=== PATIENT | male | born 1950 | race Caucasian/White ===

== ENCOUNTER 2021-03-20 16:41 | Inpatient (IN) | payer MEDICARE, SELFPAY ==
[2019-01-29 13:03] VITALS: BMI 27.8
[2021-03-20] VITALS (7 sets, daily range): BP systolic 83–207; BP diastolic 44–161; PULSE 62–73; RESP 18–24; TEMP 36.5–37.1; O2SAT 92–96; BMI 28.3; BMI 27.0
--- NOTE | 2021-03-20 16:53 | EDS_ITS ---
HPI History of Present Illness Chief Complaint: Abd Pain Informant: patient Narrative Narrative: 70-year-old male states that 1 hour prior to arrival he had sudden onset of lower abdominal pain. Reports that he has been constipated for the past 3 days but did move his bowels this morning. He denies any urinary symptoms. He notes prior history of diverticulitis as well as ureterolithiasis. He takes every 6 hour May for chronic back pain. He is on Eliquis. [facility] Medical History (Updated 03/20/21 @ 20:[address] Doyle Alexander, ) Atherosclerosis of coronary artery bypass graft without angina pectoris Atherosclerosis of coronary artery of [place] heart without angina pectoris Gaines's esophagus COPD (chronic obstructive pulmonary disease) Diverticulosis Essential hypertension GERD (gastroesophageal reflux disease) History of DVT (deep vein thrombosis) History of pulmonary embolism Hyperlipidemia Insomnia Palpitations Severe low back pain Vitamin D deficiency Home Medications zolpidem 10 mg PO QHS PRN 05/15/16 [History Last Taken Unknown] hydrocodone-acetaminophen 1 tab PO 4X/DAY PRN 09/17/17 [History Last Taken 09/17/17] apixaban 5 mg PO BID #0 09/18/17 [Rx Last Taken 09/17/17] albuterol sulfate 1.25 mg INHALATION Q4H PRN 01/28/19 [History Last Taken Unknown] alprazolam 0.5 mg tablet 1 mg PO BID tab 01/28/19 [History Last Taken Unknown] amiodarone 200 mg tablet 300 mg PO DAILY tab 01/28/19 [History Last Taken Unknown] evolocumab 140 mg/mL subcutaneous pen injector 140 mg SC Q2W 01/28/19 [History Last Taken Unknown] ipratropium 20 mcg-albuterol 100 mcg/actuation mist for inhalation 1 puff INHALATION DAILY 90 Days g 01/28/19 [History Last Taken Unknown] ropinirole 0.25 mg tablet 0.25 mg PO TID PRN tab 01/28/19 [History Last Taken Unknown] tizanidine 4 mg tablet 4 mg PO TID PRN 01/28/19 [History Last Taken Unknown] amlodipine 5 mg-valsartan 320 mg tablet 1 tab PO DAILY 01/29/19 [History Last T aken Unknown] atenolol 25 mg tablet 50 mg PO DAILY 01/29/19 [History Last Taken Unknown] omeprazole 20 mg capsule,delayed release 20 mg PO BID PRN cap 01/29/19 [History Last Taken Unknown] azelastine 1 spray INTRANASAL BID 03/20/21 [History Last Taken Unknown] furosemide 20 mg PO DAILY 03/20/21 [History Last Taken Unknown] potassium chloride 10 meq PO DAILY 03/20/21 [History Last Taken Unknown] Allergy/AdvReac Type Severity Reaction Status Date / Time cetirizine Allergy Severe chest Verified 01/29/19 13:07 pain, irregular heart beat acyclovir [From Zovirax] Allergy Intermediate GI upset Verified 01/28/19 16:29 Cephalosporins Allergy Intermediate abdominal Verified 01/28/19 16:29 pain Nzhlcdl-Mxp-Rsz Reductase Allergy Intermediate leg pain Verified 01/28/19 16:29 Inhibitor and general malaise ciprofloxacin [From Cipro] AdvReac Diarrhea Verified 09/17/17 16:31 doxycycline AdvReac Diarrhea Verified 09/17/17 16:31 Family History Mother Breast cancer Father Colon cancer Cancer prostate Surgical History History of cataract removal with insertion of prosthetic lens History of coronary artery bypass graft Presence of stent in coronary artery Social History Smoking Status: Current some day smoker tobacco type: cigarettes alcohol intake: current alcohol intake frequency: holidays/special occasions only substance use type: does not use caffeine: Yes Type: coffee Number of servings: 1 ROS ROS ED Constitutional Constitutional ED: Denies chills or weight loss Eyes Eyes: Denies change in vision or diplopia ENT ENT ED: Denies ear pain, rhinorrhea or sore throat Cardiovascular Cardiovascular: Denies chest pain, orthopnea, palpitations or racing heartbeat Respiratory/Chest Respiratory/Chest: Denies cough, dyspnea or orthopnea Gastrointestinal Gastrointestinal: Reports abdominal pain and constipation; Denies diarrhea, nausea or vomiting Genitourinary Genitourinary ED: Denies dysuria, hematuria or urinary frequency Musculoskeletal Musculoskeletal: Denies arthralgias or myalgias Integumentary Denies abscess or rash Neurologic Neurologic: Denies headache(s) or weakness Psychiatric Psychiatric: Denies anxiety, depression, suicidal ideation or suicidal thoughts Endocrine Endocrinology: Denies polydipsia, polyphagia or polyuria Allergic/Immunologic Allergic/Immunologic ED: Denies mouth swelling, tongue swelling or urticaria EXAM Physical Exam Const Vital Signs: 03/20/21 16:42 03/20/21 16:43 Temperature 97.7 F L Temperature Source Temporal Pulse Rate 73 72 Respiratory Rate 20 H 18 Blood Pressure 207/161 H 187/147 H Blood Pressure Mean 176 160 Pulse Ox 93 92 Oxygen Delivery Method Room Air Room Air Positive well nourished and well developed General Appearance ED: well developed HEENT Reports normocephalic, head/scalp atraumatic and moist mucous membranes Eyes PERRL and EOMs intact bilaterally Neck no lymphadenopathy, supple and no JVD Resp normal respiratory effort and clear to auscultation bilaterally Cardio regular rate, regular rhythm and no murmurs GI Palpation: soft and tender LLQ, RLQ and suprapubic Back/Spine no CVA tenderness and normal ROM Extremity normal to inspection General Extremety ED: Negative for edema General Extremity: Negative for edema Neuro oriented x3 and CN's II-XII intact bilaterally Sensorium / Orientation: alert Motor Exam: strength 5/5 throughout Psych mental status grossly normal Mood & Affect: Negative for depressed or tearful Skin no rashes or lesions noted and no wounds MDM MDM MDM Narrative Medical decision making narrative: Patient received a dose of morphine and Zofran as well as IV fluids. Patient white count returns at 12.4. Hemoglobin 17.4. CMP showed a creatinine 1.36 till bilirubin of 1.2. Urinalysis 2+ bacteria 0-5 squamous cells 0-5 white cells negative nitrates. We will send that for culture. His CT of the abdomen pelvis demonstrates acute sigmoid diverticulitis with perforation. He received a dose of Zosyn. I spoke with our on-call surgeon I will speak with her hospitalist for admission Lab Data Attestation: I reviewed the patient's lab results. Labs: Laboratory Results - last 24 hr 03/20/21 03/20/21 03/20/21 17:25 17:25 18:55 WBC 12.4 H RBC 6.22 H Hgb 17.4 H Hct 56.3 H MCV 90.5 MCH 28.0 MCHC 30.9 L RDW Std Deviation 48.7 H RDW Coeff of Thierno 14.9 H Plt Count 280 MPV 9.6 Immature Gran % (Auto) 1.000 H Neut % (Auto) 85.0 H Lymph % (Auto) 10.4 L Page % (Auto) 3.1 Eos % (Auto) 0.1 Baso % (Auto) 0.4 Absolute Neuts (auto) 10.6 H Absolute Lymphs (auto) 1.29 Nucleated RBC % 0 Sodium 133 L Potassium 4.3 Chloride 96 L Carbon Dioxide 28.0 Anion Gap 9 BUN 21 H Creatinine 1.36 H Estim Creat Clear Calc 46.58 Est GFR (MDRD) Af Amer 66 Est GFR (MDRD) Non-Af 55 L BUN/Creatinine Ratio 15.4 Glucose 164 H Calcium 9.1 Total Bilirubin 1.20 H AST 15 ALT 17 Alkaline Phosphatase 94 Total Protein 7.5 Albumin 3.3 Globulin 4.2 Albumin/Globulin Ratio 0.8 L Urine Color Flaca Urine Clarity Sl. Cloudy Urine pH 5.0 Ur Specific O'Brien 1.020 Urine Protein 30 H Urine Glucose (UA) Normal Urine Ketones 5 H Urine Occult Blood Negative Urine Nitrite Negative Urine Bilirubin 1 H Urine Urobilinogen 1 H Ur Leukocyte Esterase 25 H Urine RBC 0 SEEN Urine WBC 0-5 SEEN Ur Squamous Epith Cells 0-5 SEEN Urine Bacteria 2+ Urine Mucus 1+ Radiography Diagnostic Testing: Radiology Impression Abdomen/Pelvis CT 03/20/21 18:12 IMPRESSION: Findings compatible with acute perforated sigmoid diverticulitis with trace free intraperitoneal air. Cholelithiasis. Trace ascites. Nonobstructing tiny stone in the upper pole of the left kidney. I discussed the findings by phone with Dr. Doyle Alexander at 5:06 PM PDT on 03/20/2021 Electronically Signed: Isidoro Costello MD at 20:08 EDT Tel , Service support , Discharge Plan Triage Chief Complaint: Abd Pain ED Provider: Doyle Alexander Dx/Rx/DC Orders Clinical Impression: Perforation of sigmoid colon due to diverticulitis Prescriptions: No Action amlodipine-valsartan 5-320 mg tablet 1 tab PO DAILY RF: 0 atenolol 25 mg tablet 50 mg PO DAILY RF: 0 tizanidine 4 mg tablet 4 mg PO TID PRNRF: 0 ipratropium-albuterol 20-100 mcg/actuation mist 1 puff INHALATION DAILY 90 Days RF: 0 albuterol sulfate 2.5 mg /3 mL (0.083 %) solution for nebulization 1.25 mg INHALATION Q4H PRN (Reason: Shortness Of Breath) RF: 0 Repatha SureClick 140 mg/mL pen injector 140 mg SC Q2W RF: 0 omeprazole 20 mg capsule,delayed release(DR/EC) 20 mg PO BID PRNRF: 0 zolpidem 10 MG tablet 10 mg PO QHS PRN (Reason: Sleep) RF: 0 ropinirole 0.25 mg tablet 0.25 mg PO TID PRN (Reason: restless legs) RF: 0 amiodarone 200 mg tablet 300 mg PO DAILY RF: 0 hydrocodone-acetaminophen 1 EACH tablet 1 tab PO 4X/DAY PRN (Reason: Pain) RF: 0 apixaban 5 MG tablet 5 mg PO BID Qty: 0 RF: 0 alprazolam 0.5 mg tablet 1 mg PO BID RF: 0 potassium chloride 10 mEq Capsule, Extended Release 10 meq PO DAILY RF: 0 furosemide 20 mg Tablet 20 mg PO DAILY RF: 0 azelastine 205.5 mcg (0.15 %) [place],Non-Aerosol 1 spray INTRANASAL BID RF: 0 Primary Care Provider: Woo Pineda Referrals: Woo Pineda MD [Primary Care Provider] - Disposition Disposition: Acute Care Hospital [facility]
[2021-03-20] MEDS: Morphine 4 MG/ML Syringe IV (17:19)
[2021-03-20] MEDS: Ondansetron 4 MG/2 ML Vial IV (17:21)
[2021-03-20] MEDS: Ketorolac 15 MG/ML Vial IV (17:21)
[2021-03-20] MEDS: 0.9% Normal Saline 1,000 ML 125 ML IV (17:22)
[2021-03-20 17:33] LABS: Absolute Lymphocyte Count 1.29 X10^3/uL (0.83-4.51); Absolute Neutrophil Count 10.6 X10^3/uL (2.0-7.7); Basophil# 0.05 X10^3/uL; Basophil% 0.4 % (0-1); Eosinophil# 0.01 X10^3/uL; Eosinophils% 0.1 % (0-5); Hemoglobin 17.4 g/dL (13.0-16.5); Lymphocyte # 1.29 X10^3/ul (0.83-4.51); Lymphocyte % 10.4 % (19-41); Mean Corp Hgb Conc 30.9 g/dL (32-36); Mean Corpuscular Volume 90.5 fL (80-94); Mean Platelet Vol. 9.6 fl (6.2-12.0); Monocyte# 0.39 X10^3/uL; Monocyte% 3.1 % (0-10); NRBC Flagged by Analyzer 0 % (0-5); Neutrophil # 10.56 X10^3/uL (2.7-7.7); Platelet Count 280 K/mm3 (150-450); RBC Distribution Width CV 14.9 % (11.6-14.6); RBC Distribution Width SD 48.7 fl (35.1-43.9); Red Blood Count 6.22 M/mm3 (4.6-6.2); White Blood Count 12.4 K/mm3 (4.4-11.0)
[2021-03-20 17:37] LABS: Hematocrit 56.3 % (40-54)
[2021-03-20 17:55] LABS: ALB/GLOB Ratio 0.8 RATIO (0.9-2.4); AST(SGOT) 15 U/L (15-37); Alanine Aminotransfer ALT/SGPT 17 U/L (16-61); Albumin, Serum 3.3 g/dL (3.2-5.0); Alkaline Phosphatase 94 U/L (45-117); Anion Gap 9 (5-15); BUN 21 mg/dL (7-18); BUN/Creat Ratio 15.4 RATIO (10-20); Calcium,Total 9.1 mg/dL (8.5-10.1); Chloride 96 mmol/L (98-107); Creatinine, Serum 1.36 mg/dL (0.70-1.30); EST Glomerular Filtration Rate 55 mL/min (>60); Est Glom Filt Rate - Afr Amer 66 mL/min (>60); Estimated Creatinine Clearance 46.58 ml/min; Globulin 4.2 g/dL (2.2-4.2); Glucose 164 mg/dL (74-106); Potassium 4.3 mmol/L (3.5-5.1); Protein, Total 7.5 g/dL (6.4-8.2); Sodium Level 133 mmol/L (136-145)
--- NOTE | 2021-03-20 18:12 | CT_ITS ---
We are attempting to reach an attending provider to discuss findings. An addendum with communication details will be sent when the communication is complete. STUDY: CT ABDOMEN AND PELVIS WITH CONTRAST REASON FOR EXAM: Male, 70 years old. llq pain RADIATION DOSAGE (If Supplied By Facility): CTDIvol = ( 15.01 ) mGy, DLP = ( 919.14 ) mGycm TECHNIQUE: Transaxial images were obtained from the dome of the diaphragm to the symphysis pubis without oral contrast. IV 100mL Isovue-300 was administered. Sagittal and coronal images were reconstructed. Individualized dose optimization techniques were used for this CT. COMPARISON: 08/21/2012 FINDINGS: Minimal bibasilar dependent atelectasis. Unremarkable liver, spleen, pancreas, adrenals, and right kidney. A 0.2 cm nonobstructing stone in the left kidney. Multiple layering stones in the gallbladder. Trace ascites. Normal appendix. Bowel loops nonobstructed. Distal colonic diverticulosis. Fat stranding around the sigmoid colon, compatible with acute diverticulitis. Intraperitoneal free air noted lateral to the sigmoid colon, best seen on images #95 and 96. Findings consistent with perforation. Trace ascites. Urinary bladder grossly unremarkable. Prostate mildly enlarged. Small fat-containing right inguinal hernia. Fusiform aneurysmal dilatation of the ascending thoracic aorta measuring 3.6 x 3.1 cm axial plane. Old compression fractures of L2 on L3. Multilevel thoracolumbar spondylosis. Mild to moderate osteoarthritis of the bilateral hip joints. Diffuse osteopenia. CT/Abdomen/Pelvis W IV Cont ONLY IMPRESSION: Findings compatible with acute perforated sigmoid diverticulitis with trace free intraperitoneal air. Cholelithiasis. Trace ascites. Nonobstructing tiny stone in the upper pole of the left kidney. I discussed the findings by phone with Dr. Doyle Alexander at 5:06 PM PDT on 03/20/2021 Electronically Signed: Isidoro Costello MD at 20:08 EDT Tel , Service support ,
[2021-03-20 18:59] LABS: Color, Urine Amber (Yellow); Glucose, Dipstick Normal (Normal); Ketone-Dipstick 5 mg/dl (Negative); Leukocyte Esterase-Dipstick 25 /ul (Negative); Nitrite-Dipstick Negative (Negative); Occult Blood-Urine Negative /ul (Negative); Protein-Dipstick 30 mg/dl (Negative); Red Blood Cells-Urine 0 SEEN /hpf (0-5); Urine Clarity Sl. Cloudy (Clear); Urine Urobilinogen 1 mg/dl (Normal)
[2021-03-20 19:01] LABS: Urine Bilirubin Dipstick 1 mg/dL (Negative)
[2021-03-20 19:05] LABS: Mucous, Urine 1+ /hpf (<or=2+); Squamous Epithelial Cells - UA 0-5 SEEN /hpf (0-5); White Blood Cells 0-5 SEEN /hpf (0-5)
[2021-03-20 19:06] LABS: Bacteria 2+ /hpf (None Seen)
--- NOTE | 2021-03-20 20:33 | PCM.HP.STD ---
[facility] - General General Date of Admission: 03/20/21 HPI Dejah ALVAREZ, is a 70 M with a significant history of 5 vessel CABG and stent; DVT and PE; chronic back pain; and diverticulitis who presents to the emergency department with a 2-day history of lower abdominal pain. One (1) hour before presentation his abdominal pain progressively worsened so she came to the emergency department. She reports excruciating abdominal pain. He describes his pain as sharp. The pain is nonradiating. He denies any ameliorating or aggravating factors to the pain. Although his bowels moved typically every day on the day before presentation his bowels did not move. However on the day of presentation his bowels moved. He denies any nausea or vomiting. He reports a decrease in frequency of urination About 1 week ago he was diagnosed with congestive heart failure and started on Lasix. [facility] Medical History Atherosclerosis of coronary artery bypass graft without angina pectoris Atherosclerosis of coronary artery of [place] heart without angina pectoris Gaines's esophagus COPD (chronic obstructive pulmonary disease) Diverticulosis Essential hypertension GERD (gastroesophageal reflux disease) History of DVT (deep vein thrombosis) History of pulmonary embolism Hyperlipidemia Insomnia Palpitations Severe low back pain Vitamin D deficiency Home Medications zolpidem 10 mg PO QHS 05/15/16 [History Last Taken 03/19/21 23:00] hydrocodone-acetaminophen 1 tab PO 4X/DAY PRN 09/17/17 [History Last Taken 03/20/21 14:00] apixaban 5 mg PO BID #0 09/18/17 [Rx Last Taken 03/20/21 08:00] albuterol sulfate 1.25 mg INHALATION Q4H PRN 01/28/19 [History Last Taken Unknown] alprazolam 0.5 mg tablet 1 mg PO BID tab 01/28/19 [History Last Taken 03/19/21 23:00] evolocumab 140 mg/mL subcutaneous pen injector 140 mg SC Q2W 01/28/19 [History Last Taken Unknown] ipratropium 20 mcg-albuterol 100 mcg/actuation mist for inhalation 1 puff INHALATION DAILY 90 Days g 01/28/19 [History Last Taken Unknown] tizanidine 4 mg tablet 4 mg PO TID PRN 01/28/19 [History Last Taken Unknown] atenolol 25 mg tablet 50 mg PO DAILY 01/29/19 [History Last Taken 03/20/21 08:00] furosemide 20 mg PO DAILY 03/20/21 [History Last Taken 03/20/21 08:00] potassium chloride 10 meq PO DAILY 03/20/21 [History Last Taken 03/20/21 08:00] Allergy/AdvReac Type Severity Reaction Status Date / Time cetirizine Allergy Severe chest Verified 01/29/19 13:07 pain, irregular heart beat acyclovir [From Zovirax] Allergy Intermediate GI upset Verified 01/28/19 16:29 Cephalosporins Allergy Intermediate abdominal Verified 01/28/19 16:29 pain [id number]-Fkc Reductase Allergy Intermediate increased Verified 03/20/21 22:01 Inhibitor weakness ciprofloxacin [From Cipro] AdvReac Diarrhea Verified 09/17/17 16:31 doxycycline AdvReac Diarrhea Verified 09/17/17 16:31 Family History Mother Breast cancer Father Colon cancer Cancer prostate Surgical History History of cataract removal with insertion of prosthetic lens History of coronary artery bypass graft Presence of stent in coronary artery Social History Smoking Status: Current some day smoker tobacco type: cigarettes alcohol intake: current alcohol intake frequency: holidays/special occasions only substance use type: does not use caffeine: Yes Type: coffee Number of servings: 1 ROS ROS Narrative 12 point review of system is negative except as stated in HPI. Vital Signs Vital Signs Vital Signs: 03/20/21 16:42 03/20/21 16:43 03/20/21 19:00 Temperature 97.7 F L 98.5 F Temperature Source Temporal Oral Pulse Rate 73 72 66 Respiratory Rate 20 H 18 24 H Blood Pressure 207/161 H 187/147 H 110/68 Blood Pressure Mean 176 160 82 Pulse Ox 93 92 96 Oxygen Delivery Method Room Air Room Air Room Air 03/20/21 20:17 Temperature 98.8 F Temperature Source Oral Pulse Rate 65 Respiratory Rate 22 H Blood Pressure 107/66 Blood Pressure Mean 79 Pulse Ox 95 Oxygen Delivery Method Room Air Weight Weight: 81.9 kg Body Mass Index (BMI) 28.3 Physical Exam Narrative Physical exam: General: Well-nourished, well-developed, no acute distress Head: Normocephalic, atraumatic, no tenderness Eyes: PERRLA, EOMI ENT, no trauma, moist mucous membranes, no rhinorrhea Neck: Nontender, full range of motion, no spinal tenderness, deformities, step-off CVS: Regular rate and rhythm Respiratory no acute distress, clear to auscultation bilaterally, chest wall nontender, no wheezing Abdomen: Soft, nondistended, normal bowel sounds, no masses. Tender right lower quadrant : Deferred Extremities: Nontender full range of motion, no trauma Skin: Normal color, no trauma, abrasions Neuro: Alert, oriented, cranial nerves II through XII grossly intact. Results Lab / Micro Data Result Diagrams: 03/20/21 17:25 03/20/21 17:25 Labs: Laboratory Results - last 24 hr 03/20/21 03/20/21 03/20/21 17:25 17:25 18:55 WBC 12.4 H RBC 6.22 H Hgb 17.4 H Hct 56.3 H MCV 90.5 MCH 28.0 MCHC 30.9 L RDW Std Deviation 48.7 H RDW Coeff of Thierno 14.9 H Plt Count 280 MPV 9.6 Immature Gran % (Auto) 1.000 H Neut % (Auto) 85.0 H Lymph % (Auto) 10.4 L Casey % (Auto) 3.1 Eos % (Auto) 0.1 Baso % (Auto) 0.4 Absolute Neuts (auto) 10.6 H Absolute Lymphs (auto) 1.29 Nucleated RBC % 0 Sodium 133 L Potassium 4.3 Chloride 96 L Carbon Dioxide 28.0 Anion Gap 9 BUN 21 H Creatinine 1.36 H Estim Creat Clear Calc 46.58 Est GFR (MDRD) Af Amer 66 Est GFR (MDRD) Non-Af 55 L BUN/Creatinine Ratio 15.4 Glucose 164 H Calcium 9.1 Total Bilirubin 1.20 H AST 15 ALT 17 Alkaline Phosphatase 94 Total Protein 7.5 Albumin 3.3 Globulin 4.2 Albumin/Globulin Ratio 0.8 L Urine Color Flaca Urine Clarity Sl. Cloudy Urine pH 5.0 Ur Specific [place] 1.020 Urine Protein 30 H Urine Glucose (UA) Normal Urine Ketones 5 H Urine Occult Blood Negative Urine Nitrite Negative Urine Bilirubin 1 H Urine Urobilinogen 1 H Ur Leukocyte Esterase 25 H Urine RBC 0 SEEN Urine WBC 0-5 SEEN Ur Squamous Epith Cells 0-5 SEEN Urine Bacteria 2+ Urine Mucus 1+ Radiology Impression Abdomen/Pelvis CT 03/20/21 18:12 IMPRESSION: Findings compatible with acute perforated sigmoid diverticulitis with trace free intraperitoneal air. Cholelithiasis. Trace ascites. Nonobstructing tiny stone in the upper pole of the left kidney. I discussed the findings by phone with Dr. Doyle Alexander at 5:06 PM PDT on 03/20/2021 Electronically Signed: Isidoro Costello MD at 20:08 EDT Tel , Service support , ADDENDUM: 03/20/21 2018 IMPRESSION: Findings compatible with acute perforated sigmoid diverticulitis with trace free intraperitoneal air. Cholelithiasis. Trace ascites. Nonobstructing tiny stone in the upper pole of the left kidney. I discussed the findings by phone with Dr. Doyle Alexander at 5:06 PM PDT on 03/20/2021 N.B. : The above Results were Read Back by Isidoro Costello MD to Dr. Doyle Alexander MD, and understanding confirmed on 03/20/2021 20:11:58 (ET). Electronically Signed: Isidoro Costello MD at 20:08 EDT Tel , Service support , Assessment & Plan Assessment/Plan (1) Perforation of sigmoid colon due to diverticulitis: (2) Essential hypertension: PLAN: Perforation of sigmoid colon due to diverticulitis Radiologist impression of abdomen and pelvis CT: Findings compatible with acute perforated sigmoid diverticulitis with trace free intraperitoneal air. Cholelithiasis; trace ascites; nonobstructing tiny stone in the upper pole of the left kidney. Actual abdomen and pelvis CT independently interpreted and agree with direct interpretation. Emergent department doctor discussed the case with general surgeon on-call who will follow. General surgery consult placed. Started on Zosyn at the emergency department and continued. Gentle IV hydration. Review of Emergency department labs showed bandemia with leukocytosis; trend CBC. As needed IV morphine sulfate for pain ordered. As needed Zofran IV for nausea or vomiting. UTI Bacteriuria Started on Zosyn; continued. Congestive heart failure Report that he was diagnosed with congestive heart failure about a week ago and started on Lasix. In the setting of n.p.o. hold Lasix and potassium. Gentle IV hydration. Cautious use of fluids. Trend BMP. Coreg held secondary to parameters placed. LARY/dehydration Creatinine of 1.36. Last creatinine on file was in 2018. Creatinine at time was normal. Review of ED labs showed a mild hyponatremia of 133. BUN mildly elevated at 21 Review of community records show that on 03/10/2021 his creatinine was 0.85. Hold Lasix. Avoid nephrotoxins. Gentle IV hydration. DVT prophylaxis: SCD ordered. Charges/Coding Visit Charges Inpatient E&M: 63200 Init Hosp L3
[2021-03-20] MEDS: Azelastine HCl NASAL.SRY 1 SPRAY NASAL (22:45)
[2021-03-20] MEDS: 0.9% Normal Saline 1,000 ML 50 ML IV (22:47)
[2021-03-20] MEDS: ALPRAZolam 0.5 MG Tablet 1 MG PO (22:47)
[2021-03-21] VITALS (16 sets, daily range): BP systolic 82–113; BP diastolic 55–75; PULSE 65–80; RESP 18–20; TEMP 36.6–36.9; O2SAT 92–100
[2021-03-21] MEDS: tiZANidine HCl 2 MG Tablet 4 MG PO ×2 (00:42→19:53)
[2021-03-21] MEDS: Pantoprazole Sodium 40 MG Tablet PO (03:56)
[2021-03-21] MEDS: 0.9% Normal Saline 1,000 ML 50 ML IV (05:46)
[2021-03-21 06:25] LABS: Absolute Lymphocyte Count 0.68 X10^3/uL (0.83-4.51); Absolute Neutrophil Count 8.7 X10^3/uL (2.0-7.7); Basophil# 0.04 X10^3/uL; Basophil% 0.4 % (0-1); Differential Indicated SCAN CRITERIA MET; Eosinophil# 0.11 X10^3/uL; Eosinophils% 1.1 % (0-5); Hematocrit 52.5 % (40-54); Hemoglobin 16.2 g/dL (13.0-16.5); Lymphocyte # 0.68 X10^3/ul (0.83-4.51); Lymphocyte % 6.6 % (19-41); Mean Corp Hgb Conc 30.9 g/dL (32-36); Mean Corpuscular Hgb 28.3 pg (27.0-32.0); Mean Corpuscular Volume 91.6 fL (80-94); Mean Platelet Vol. 9.8 fl (6.2-12.0); Monocyte# 0.72 X10^3/uL; NRBC Flagged by Analyzer 0 % (0-5); Neutrophil # 8.68 X10^3/uL (2.7-7.7); Neutrophil % 84.3 % (47-70); POSITIVE MORPHOLOGY YES; Platelet Count 194 K/mm3 (150-450); RBC Distribution Width CV 14.8 % (11.6-14.6); RBC Distribution Width SD 49.7 fl (35.1-43.9); Red Blood Count 5.73 M/mm3 (4.6-6.2); White Blood Count 10.3 K/mm3 (4.4-11.0)
--- NOTE | 2021-03-21 06:32 | EX.PCM.CON.S ---
Assessment & Plan Assessment/Plan (1) Perforation of sigmoid colon due to diverticulitis: (2) Hypotension: PLAN: Did review patient CT abdomen pelvis to have small amount of extraluminal air. Patient did have some hypotension overnight and currently did get a bolus of 250 cc however still remained hypotensive. Patient states he has not drank much for the last 4 days and has not ate. Patient's creatinine was elevated on admission 1.36 patient's fluids were cut down due to new diagnosis of CHF per patient. Will give an additional 500 cc bolus and increase fluids back to 125 cc an hour. We will plan to treat conservatively with IV antibiotics, pain control. Did discuss with patient that if he does have increasing pain or blood pressure does not improve we may need to talk about surgery which could include exploratory laparotomy, sigmoidectomy, possible colostomy. I do think the dehydration is likely is due to dehydration currently as his white blood cell count did come down to 10 from 12, and patient has low urine output with 75 cc since midnight and a negative bladder scan. Creatinine is pending but think it will likely be higher than on admit. Swathi Brurell M.D. Pager: [phone] [facility] [address] [place] [address], [facility], [address] [place] [address] Office: [phone] HPI Consult Data Date of Consult: 03/22/21 HPI Narrative HPI Narrative: ADRIANNE ALVAREZ, is a 70 M who presents to the ER due to lower abdominal pain. Patient states he has had this for about 4 days has not been eating for 4 days has been drinking but not urinating much. Patient states he has had previous episodes of diverticulitis maybe 2 or 3 last one was maybe about [address] abdomen pelvis did show acute diverticulitis with small extraluminal air. Patient initially had systolic blood pressures in the one tens in the ER however 2nd patient got to the floor he was hypotensive they did cut down his fluids due to new diagnosis of congestive heart failure per patient tube 50 from 125. Did try to limit morphine due to his blood pressure. Did not get any pain meds overnight still states pain is about the same. Patient did get a bolus of 250 cc which did not drastically improve his blood pressure still hypotensive. Patient's urine output since midnight 75 cc bladder scan did not show any urine in his bladder. Patient's white blood cell count on admit was 12 currently this morning is 10 patient is on IV Zosyn. [facility] Medical History (Updated 03/21/21 @ 06:[address] Swathi Burrell MD) Atherosclerosis of coronary artery bypass graft without angina pectoris Atherosclerosis of coronary artery of [place] heart without angina pectoris Gaines's esophagus COPD (chronic obstructive pulmonary disease) Diverticulosis Essential hypertension GERD (gastroesophageal reflux disease) History of DVT (deep vein thrombosis) History of pulmonary embolism Hyperlipidemia Insomnia Palpitations Severe low back pain Vitamin D deficiency Home Medications zolpidem 10 mg PO QHS 05/15/16 [History Last Taken 03/19/21 23:00] hydrocodone-acetaminophen 1 tab PO 4X/DAY PRN 09/17/17 [History Last Taken 03/20/21 14:00] apixaban 5 mg PO BID #0 09/18/17 [Rx Last Taken 03/20/21 08:00] albuterol sulfate 1.25 mg INHALATION Q4H PRN 01/28/19 [History Last Taken Unknown] alprazolam 0.5 mg tablet 1 mg PO BID tab 01/28/19 [History Last Taken 03/19/21 23:00] evolocumab 140 mg/mL subcutaneous pen injector 140 mg SC Q2W 01/28/19 [History Last Taken Unknown] ipratropium 20 mcg-albuterol 100 mcg/actuation mist for inhalation 1 puff INHALATION DAILY 90 Days g 01/28/19 [History Last Taken Unknown] tizanidine 4 mg tablet 4 mg PO TID PRN 01/28/19 [History Last Taken Unknown] atenolol 25 mg tablet 50 mg PO DAILY 01/29/19 [History Last Taken 03/20/21 08:00] furosemide 20 mg PO DAILY 03/20/21 [History Last Taken 03/20/21 08:00] potassium chloride 10 meq PO DAILY 03/20/21 [History Last Taken 03/20/21 08:00] Allergy/AdvReac Type Severity Reaction Status Date / Time cetirizine Allergy Severe chest Verified 01/29/19 13:07 pain, irregular heart beat acyclovir [From Zovirax] Allergy Intermediate GI upset Verified 01/28/19 16:29 Cephalosporins Allergy Intermediate abdominal Verified 01/28/19 16:29 pain [id number]-Llb Reductase Allergy Intermediate increased Verified 03/20/21 22:01 Inhibitor weakness ciprofloxacin [From Cipro] AdvReac Diarrhea Verified 09/17/17 16:31 doxycycline AdvReac Diarrhea Verified 09/17/17 16:31 Family History Mother Breast cancer Father Colon cancer Cancer prostate Surgical History History of cataract removal with insertion of prosthetic lens History of coronary artery bypass graft Presence of stent in coronary artery Social History Smoking Status: Current some day smoker tobacco type: cigarettes alcohol intake: current alcohol intake frequency: holidays/special occasions only substance use type: does not use caffeine: Yes Type: coffee Number of servings: 1 ROS Constitutional Constitutional: Reports poor appetite; Denies fever(s) ENT HEENT: Denies dizziness Cardiovascular Cardiovascular: Denies chest pain Respiratory/Chest Respiratory/Chest: Denies shortness of breath at rest Gastrointestinal Gastrointestinal: Reports abdominal pain and nausea; Denies constipation, diarrhea, heartburn or hematemesis Genitourinary Genitourinary: Denies burning urination Musculoskeletal Musculoskeletal: Denies joint pain Integumentary Integumentary: Denies rash Neurologic Neurologic: Denies focal weakness Psychiatric Psychiatric: Reports anxiety Endocrine Endocrinology: Denies palpitations Hematologic/Lymphatic Hematologic/Lymphatic: Denies easy bleeding or easy bruising Physical Exam Const alert, oriented x3 and no apparent distress HEENT normocephalic and head/scalp atraumatic Resp normal respiratory effort Cardio regular rate GI soft to palpation; Negative for non-distended Palpation: tender RLQ (And right mid abdomen, equivocal rebound); Negative for guarding Extremity no clubbing, cyanosis or edema Neuro CN's II-XII intact bilaterally Psych mental status grossly normal Lab / Micro Data Result Diagrams: 03/21/21 05:54 03/21/21 05:54 Labs: Laboratory Results - last 24 hr 03/20/21 03/20/21 03/20/21 17:25 17:25 18:55 WBC 12.4 H RBC 6.22 H Hgb 17.4 H Hct 56.3 H MCV 90.5 MCH 28.0 MCHC 30.9 L RDW Std Deviation 48.7 H RDW Coeff of [place] 14.9 H Plt Count 280 MPV 9.6 Immature Gran % (Auto) 1.000 H Neut % (Auto) 85.0 H Lymph % (Auto) 10.4 L [place] % (Auto) 3.1 Eos % (Auto) 0.1 Baso % (Auto) 0.4 Absolute Neuts (auto) 10.6 H Absolute Lymphs (auto) 1.29 Nucleated RBC % 0 Sodium 133 L Potassium 4.3 Chloride 96 L Carbon Dioxide 28.0 Anion Gap 9 BUN 21 H Creatinine 1.36 H Estim Creat Clear Calc 46.58 Est GFR (MDRD) Af Amer 66 Est GFR (MDRD) Non-Af 55 L BUN/Creatinine Ratio 15.4 Glucose 164 H Calcium 9.1 Total Bilirubin 1.20 H AST 15 ALT 17 Alkaline Phosphatase 94 Total Protein 7.5 Albumin 3.3 Globulin 4.2 Albumin/Globulin Ratio 0.8 L Urine Color [place] Urine Clarity Sl. Cloudy Urine pH 5.0 Ur Specific [place] 1.020 Urine Protein 30 H Urine Glucose (UA) Normal Urine Ketones 5 H Urine Occult Blood Negative Urine Nitrite Negative Urine Bilirubin 1 H Urine Urobilinogen 1 H Ur Leukocyte Esterase 25 H Urine RBC 0 SEEN Urine WBC 0-5 SEEN Ur Squamous Epith Cells 0-5 SEEN Urine Bacteria 2+ Urine Mucus 1+ 03/21/21 05:54 WBC 10.3 RBC 5.73 Hgb 16.2 Hct 52.5 MCV 91.6 MCH 28.3 MCHC 30.9 L RDW Std Deviation 49.7 H RDW Coeff of [place] 14.8 H Plt Count 194 MPV 9.8 Immature Gran % (Auto) 0.600 Neut % (Auto) 84.3 H Lymph % (Auto) 6.6 L [place] % (Auto) 7.0 Eos % (Auto) 1.1 Baso % (Auto) 0.4 Absolute Neuts (auto) 8.7 H Absolute Lymphs (auto) 0.68 L Nucleated RBC % 0 Sodium Potassium Chloride Carbon Dioxide Anion Gap BUN Creatinine Estim Creat Clear Calc Est GFR (MDRD) Af Amer Est GFR (MDRD) Non-Af BUN/Creatinine Ratio Glucose Calcium Total Bilirubin AST ALT Alkaline Phosphatase Total Protein Albumin Globulin Albumin/Globulin Ratio Urine Color Urine Clarity Urine pH Ur Specific [place] Urine Protein Urine Glucose (UA) Urine Ketones Urine Occult Blood Urine Nitrite Urine Bilirubin Urine Urobilinogen Ur Leukocyte Esterase Urine RBC Urine WBC Ur Squamous Epith Cells Urine Bacteria Urine Mucus Radiology Impression Abdomen/Pelvis CT 03/20/21 18:12 IMPRESSION: Findings compatible with acute perforated sigmoid diverticulitis with trace free intraperitoneal air. Cholelithiasis. Trace ascites. Nonobstructing tiny stone in the upper pole of the left kidney. I discussed the findings by phone with Dr. Doyle Alexander at 5:06 PM PDT on 03/20/2021 Electronically Signed: Isidoro Costello MD at 20:08 EDT Tel , Service support , ADDENDUM: 03/20/21 2018 IMPRESSION: Findings compatible with acute perforated sigmoid diverticulitis with trace free intraperitoneal air. Cholelithiasis. Trace ascites. Nonobstructing tiny stone in the upper pole of the left kidney. I discussed the findings by phone with Dr. Doyle Alexander at 5:06 PM PDT on 03/20/2021 N.B. : The above Results were Read Back by Isidoro Costello MD to Dr. Doyle Alexander MD, and understanding confirmed on 03/20/2021 20:11:58 (ET). Electronically Signed: Isidoro Costello MD at 20:08 EDT Tel , Service support , Charges/Coding Visit Charges Inpatient E&M: 89259 Init Hosp L3
[2021-03-21 06:40] LABS: ALB/GLOB Ratio 0.6 RATIO (0.9-2.4); AST(SGOT) 16 U/L (15-37); Alanine Aminotransfer ALT/SGPT 15 U/L (16-61); Albumin, Serum 2.5 g/dL (3.2-5.0); Alkaline Phosphatase 67 U/L (45-117); Anion Gap 9 (5-15); BUN 30 mg/dL (7-18); BUN/Creat Ratio 15.3 RATIO (10-20); Calcium,Total 8.7 mg/dL (8.5-10.1); Chloride 100 mmol/L (98-107); Creatinine, Serum 1.96 mg/dL (0.70-1.30); EST Glomerular Filtration Rate 36 mL/min (>60); Est Glom Filt Rate - Afr Amer 44 mL/min (>60); Estimated Creatinine Clearance 32.32 ml/min; Globulin 4.1 g/dL (2.2-4.2); Glucose 100 mg/dL (74-106); Potassium 5.2 mmol/L (3.5-5.1); Protein, Total 6.6 g/dL (6.4-8.2); Sodium Level 134 mmol/L (136-145)
[2021-03-21 06:55] LABS: Differential Comment SCANNED
--- NOTE | 2021-03-21 07:02 | NURSING ---
0630 robatham at bedside examining pt. made aware of 75cc urine output since 0000. made aware of low BP, even after 250cc bolus earlier did not improve BP. MD gave this RN verbal orders for a 500cc bolus, increase IV maintenance fluids from 50cc/hr to 125cc/hr, put pt on tele, and to give 50mcg of fentanyl IV.
[2021-03-21] MEDS: Ipratropium/Albuterol Sulfate 3 ML AMPUL.NEB INHALATION ×2 (07:23→19:13)
[2021-03-21] MEDS: fentaNYL 100 MCG/2 ML Ampul 50 MCG IV ×2 (07:39→13:35)
[2021-03-21] MEDS: 0.9% Normal Saline 1,000 ML 125 ML IV ×3 (07:40→17:55)
[2021-03-21] MEDS: Azelastine HCl NASAL.SRY 1 SPRAY NASAL ×2 (09:16→22:23)
[2021-03-21] MEDS: ALPRAZolam 0.5 MG Tablet 1 MG PO ×2 (09:19→19:53)
[2021-03-21] MEDS: Sodium Polystyrene Sulfonate 15 GM/60 ML UDC PO (10:23)
--- NOTE | 2021-03-21 14:19 | PCM.PN.HOSP ---
Subjective Subjective Patient states that he has had several bouts of diverticulitis in the past but this is the worst that he has been. He reports that he usually gets this when he eats raspberries or corn. He reports that currently his pain is about where it has been if not slightly better. He denies any nausea or vomiting. Objective Data Objective Data Vital Signs: Vital Signs Temp Pulse Resp BP Pulse Ox 98 F 70 20 H 105/68 93 03/21/21 12:30 03/21/21 12:34 03/21/21 12:30 03/21/21 12:30 03/21/21 12:30 Oxygen Delivery Method Room Air Weight: 78.381 kg Body Mass Index (BMI) 27.0 Intake & Output: Intake and Output for Last 24 Hours 03/19/21 03/20/21 03/21/21 23:59 23:59 23:59 Intake Total 777.08 / 777.08 1637.09 / 1637.09 Output Total 100 / 100 250 / 250 Balance 677.08 / 677.08 1387.09 / 1387.09 Lab / Micro Data Result Diagrams: 03/21/21 05:54 03/21/21 05:54 Labs: Laboratory Results - last 24 hr 03/20/21 03/20/21 03/20/21 17:25 17:25 18:55 WBC 12.4 H RBC 6.22 H Hgb 17.4 H Hct 56.3 H MCV 90.5 MCH 28.0 MCHC 30.9 L RDW Std Deviation 48.7 H RDW Coeff of Th[place] 14.9 H Plt Count 280 MPV 9.6 Immature Gran % (Auto) 1.000 H Neut % (Auto) 85.0 H Lymph % (Auto) 10.4 L [place] % (Auto) 3.1 Eos % (Auto) 0.1 Baso % (Auto) 0.4 Absolute Neuts (auto) 10.6 H Absolute Lymphs (auto) 1.29 Nucleated RBC % 0 Differential Comment Sodium 133 L Potassium 4.3 Chloride 96 L Carbon Dioxide 28.0 Anion Gap 9 BUN 21 H Creatinine 1.36 H Estim Creat Clear Calc 46.58 Est GFR (MDRD) Af Amer 66 Est GFR (MDRD) Non-Af 55 L BUN/Creatinine Ratio 15.4 Glucose 164 H Calcium 9.1 Total Bilirubin 1.20 H AST 15 ALT 17 Alkaline Phosphatase 94 Total Protein 7.5 Albumin 3.3 Globulin 4.2 Albumin/Globulin Ratio 0.8 L Urine Color [place] Urine Clarity Sl. Cloudy Urine pH 5.0 Ur Specific [place] 1.020 Urine Protein 30 H Urine Glucose (UA) Normal Urine Ketones 5 H Urine Occult Blood Negative Urine Nitrite Negative Urine Bilirubin 1 H Urine Urobilinogen 1 H Ur Leukocyte Esterase 25 H Urine RBC 0 SEEN Urine WBC 0-5 SEEN Ur Squamous Epith Cells 0-5 SEEN Urine Bacteria 2+ Urine Mucus 1+ 03/21/21 03/21/21 05:54 05:54 WBC 10.3 RBC 5.73 Hgb 16.2 Hct 52.5 MCV 91.6 MCH 28.3 MCHC 30.9 L RDW Std Deviation 49.7 H RDW Coeff of Th[place] 14.8 H Plt Count 194 MPV 9.8 Immature Gran % (Auto) 0.600 Neut % (Auto) 84.3 H Lymph % (Auto) 6.6 L [place] % (Auto) 7.0 Eos % (Auto) 1.1 Baso % (Auto) 0.4 Absolute Neuts (auto) 8.7 H Absolute Lymphs (auto) 0.68 L Nucleated RBC % 0 Differential Comment SCANNED Sodium 134 L Potassium 5.2 H Chloride 100 Carbon Dioxide 25.0 Anion Gap 9 BUN 30 H Creatinine 1.96 H Estim Creat Clear Calc 32.32 Est GFR (MDRD) Af Amer 44 L Est GFR (MDRD) Non-Af 36 L BUN/Creatinine Ratio 15.3 Glucose 100 Calcium 8.7 Total Bilirubin 1.20 H AST 16 ALT 15 L Alkaline Phosphatase 67 Total Protein 6.6 Albumin 2.5 L Globulin 4.1 Albumin/Globulin Ratio 0.6 L Urine Color Urine Clarity Urine pH Ur Specific [place] Urine Protein Urine Glucose (UA) Urine Ketones Urine Occult Blood Urine Nitrite Urine Bilirubin Urine Urobilinogen Ur Leukocyte Esterase Urine RBC Urine WBC Ur Squamous Epith Cells Urine Bacteria Urine Mucus Radiography Diagnostic Testing: Radiology Impression Abdomen/Pelvis CT 03/20/21 18:12 IMPRESSION: Findings compatible with acute perforated sigmoid diverticulitis with trace free intraperitoneal air. Cholelithiasis. Trace ascites. Nonobstructing tiny stone in the upper pole of the left kidney. I discussed the findings by phone with Dr. Doyle Alexander at 5:06 PM PDT on 03/20/2021 Electronically Signed: Isidoro Costello MD at 20:08 EDT Tel , Service support , ADDENDUM: 03/20/212017 IMPRESSION: Findings compatible with acute perforated sigmoid diverticulitis with trace free intraperitoneal air. Cholelithiasis. Trace ascites. Nonobstructing tiny stone in the upper pole of the left kidney. I discussed the findings by phone with Dr. Doyle Alexander at 5:06 PM PDT on 03/20/2021 N.B. : The above Results were Read Back by Isidoro Costello MD to Dr. Doyle Alexander MD, and understanding confirmed on 03/20/2021 20:11:58 (ET). Electronically Signed: Isidoro Costello MD at 20:08 EDT Tel , Service support , Physical Exam Const alert, oriented x3, no apparent distress and well nourished Constitutional Narrative: Older white male lying in bed appears comfortable, nontoxic Exam Limitations: no limitations HEENT head/scalp atraumatic Head and Scalp: normocephalic Resp normal respiratory effort, no retractions, no use of accessory muscles and clear to auscultation bilaterally Cardio regular rate, regular rhythm, S1 normal heart sound, S2 normal heart sound, no murmurs, no rub, no gallops, no clicks and no JVD GI soft to palpation and non-distended Auscultation: hypoactive bowel sounds Palpation: tender other (Diffuse tenderness but most tender right sided) Extremity normal to inspection, full ROM and no clubbing, cyanosis or edema Peripheral Pulses: Yes pulses 2+ throughout Neuro oriented x3 Sensorium / Orientation: awake, alert, oriented to person, oriented to place and oriented to time Psych affect normal Assessment & Plan Assessment/Plan (1) Hypotension: (2) Perforation of sigmoid colon due to diverticulitis: (3) Atherosclerosis of coronary artery of [place] heart without angina pectoris: (4) Hyperlipidemia: QUALIFIERS: Hyperlipidemia type: unspecified Qualified Code(s): E78.5 - Hyperlipidemia, unspecified (5) Essential hypertension: PLAN: Acute sigmoid diverticulitis with perforation -Continue IV fluids at 125 cc/h -Continue Zosyn -General surgery was consulted secondary to small perforation commented on CT -Current plan is nonsurgical with conservative management via antibiotics, IV fluids, pain control -If change in clinical status possible OR for ex lap with sigmoidectomy and possible colostomy -Continue n.p.o. -Discussed with patient the importance of telling us if he has any change in his symptoms LARY secondary to dehydration -Baseline serum creatinine appears to be normal -Serum creatinine on admission was 1.36 now up to 1.96 -Continue IV hydration at 125 cc/h -Avoid nephrotoxins -Repeat BMP in a.m. -Of note patient did get IV Toradol in the emergency department Hyperkalemia -Suspect related to LARY -Continue fluid resuscitation -Kayexalate x1 dose -Repeat BMP in a.m. Hyponatremia -Suspect hypovolemic hyponatremia as sodium is improving -Repeat BMP in a.m. Fusiform thoracic aneurysm -3.6 x 3.1 -Recommend outpatient follow-up with vascular versus cardiology for follow-up CAD/HTN/HPL -5 vessel CABG in 2007 (PEARSON to LAD, vein to ramus, left radial artery to obtuse marginal, vein to circumflex, pain to PDA), stent to OM via radial graft in 2008 with 2.25X 20 and a 2.25X 12 mm Taxus stent and stent to circumflex with a 2.5X 13 cypher stent -continue evolocumab after d/c--> has statin intolerance -hold lasix -cont atenolol -Patient had significant fatigue on other beta-blockers -remote CABG Anxiety -Continue home Xanax DVT prophylaxis -SCDs -Patient appears to be on apixaban at home--> etiology for this is unclear as I do not see documented history of atrial fibrillation or clots--> hold for potential surgery CODE STATUS -Full code Charges/Coding Visit Charges Inpatient E&M: 95416 Subs Hosp L2
[2021-03-21] MEDS: Morphine 4 MG/ML Syringe IV (17:55)
[2021-03-22] MEDS: tiZANidine HCl 2 MG Tablet 4 MG PO (00:54)
[2021-03-22] MEDS: Zolpidem Tartrate 5 MG Tablet PO (00:54)
[2021-03-22] MEDS: 0.9% Normal Saline 1,000 ML 125 ML IV (00:54)
--- NOTE | 2021-03-22 00:59 | NURSING ---
pt states of pain, rating 4/10. not rating high enough for morphine. zanaflex given at this time
[2021-03-22 03:00] VITALS: PULSE 73
[2021-03-22 03:57] VITALS: BP 89/45; PULSE 75; RESP 18; TEMP 37.2; O2SAT 99
--- NOTE | 2021-03-22 04:17 | NURSING ---
0400 This RN went into pts room d/t pt yelling out. pt woke up from sleep, not knowing where he was and calling out for his . When this RN went to reorient pt and ask pt questions, pt got very irritable and stated you guys think i am a damn retard This RN reassured pt we are simply trying to maintain his safety. Pt yells I want to go home, I dont know why you are keeping me here. This RN educated pt on why he is here and what his POC is. This RN asked pt if he is currently in any pain and pt states no. This RN stated that at shift change last evening, pt was in pain and taking xanax, morphine, and zanaflex. pt states at this time yeah that was earlier and i do not have pain now. I want to eat and go home! this RN obtained vitals and BP is low 89/45. Pt pulled out left forearm IV. pt very agitated and yelling at this RN and [employer]TR [employer] Hanh stating that he has to pee. pts output has been borderline low, and pt will pee 100cc, and still c/o having the urge to pee. pt bladder scanned for 136cc earlier this shift. this RN asked pt if he has had problems in the past with urination and pt states i get up about every 20 minutes and cant go at home, this isnt new this RN asked again if pt was having ABD pain at this time and pt shouts No. pt back in bed, bedexit on, and denies further needs. call light within reach.
--- NOTE | 2021-03-22 05:06 | NURSING ---
This RN went back to the room to assist Alan RN with pt. Pt has become increasingly argumentative and noncompliant. He was sitting on the edge of the bed when I entered the room. He stated that he wanted to call his and get out of here. Pt tried calling his several times on his cell phone and she did not answer. Then pt decided he wanted to go to the bathroom and he walked into the bathroom and would not allow us to assist him. He looked at me and said get out. Doug RN called back to room since we thought he might respond better to a male figure. Pt stood in the bathroom for quite some time trying to void and then returned to bed. He allowed Doug to obtain his BP but would not allow staff to obtain any further vital signs. He just keeps saying that he wants to get out of here. Bed exit is on and staff exited room. His cell phone is close to him in case his decides to call. Will continue to monitor.
[2021-03-22 05:10] VITALS: BP 91/57; PULSE 79
--- NOTE | 2021-03-22 05:11 | NURSING ---
this RN went to recheck BP. pt refused and swatted the BF cuff out of the way. Doug Way RN came in and pt let Doug obtain BP, but no other VS. pt refusing care and keeps yelling at staff stating i want food and I want to go home
--- NOTE | 2021-03-22 06:24 | NURSING ---
Lab advised me that pt refused his labs this am.
--- NOTE | 2021-03-22 06:30 | NURSING ---
pt refusing to have vitals this AM, pt refusing to be on tele, refusing to be hooked up to his IVF and zosyn this AM this RN went back in a couple minutes later to ask again and pt stating do not start with me, just leave
--- NOTE | 2021-03-22 06:37 | PCM.PN.HOSP ---
Objective Data Objective Data Vital Signs: Vital Signs Temp Pulse Resp BP Pulse Ox 98.9 F 79 18 91/57 L 99 03/22/21 03:57 03/22/21 05:10 03/22/21 03:57 03/22/21 05:10 03/22/21 03:57 Oxygen Delivery Method Room Air Weight: 172 lb 12.808 oz Body Mass Index (BMI) 27.0 Intake & Output: Intake and Output for Last 24 Hours 03/20/21 03/21/21 03/22/21 23:59 23:59 23:59 Intake Total 777.08 / 777.08 2599.59 / 2599.59 1316.67 / 1316.67 Output Total 100 / 100 650 / 650 Balance 677.08 / 677.08 1949.59 / 1949.59 1316.67 / 1316.67 Lab / Micro Data Result Diagrams: 03/21/21 05:54 03/21/21 05:54 Labs: Laboratory Results - last 24 hr 03/21/21 05:54: Differential Comment SCANNED 03/21/21 05:54: Sodium 134 L, Potassium 5.2 H, Chloride 100, Carbon Dioxide 25.0, Anion Gap 9, BUN 30 H, Creatinine 1.96 H, Estim Creat Clear Calc 32.32, Est GFR (MDRD) Af Amer 44 L, Est GFR (MDRD) Non-Af 36 L, BUN/Creatinine Ratio 15.3, Glucose 100, Calcium 8.7, Total Bilirubin 1.20 H, AST 16, ALT 15 L, Alkaline Phosphatase 67, Total Protein 6.6, Albumin 2.5 L, Globulin 4.1, Albumin/Globulin Ratio 0.6 L
[2021-03-22 07:05] VITALS: O2SAT 95
--- NOTE | 2021-03-22 08:35 | PCM.PN.SRG ---
Subjective Subjective Patient is upset that he has not had water for 5 days patient was admitted on Monday. Patient states his abdominal pain improved overnight. Patient has refused vitals, IV antibiotics this morning. Keeps stating and asking if his ride is here. Objective Data Objective Data Vital Signs: Vital Signs Temp Pulse Resp BP Pulse Ox 98.9 F 79 18 91/57 L 95 03/22/21 03:57 03/22/21 05:10 03/22/21 03:57 03/22/21 05:10 03/22/21 07:05 Oxygen Delivery Method Room Air Weight: 172 lb 12.808 oz Body Mass Index (BMI) 27.0 Intake & Output: Intake and Output for Last 24 Hours 03/20/21 03/21/21 03/22/21 23:59 23:59 23:59 Intake Total 777.08 / 777.08 2599.59 / 2599.59 1666.67 / 1666.67 Output Total 100 / 100 650 / 650 300 / 300 Balance 677.08 / 677.08 1949.59 / 1949.59 1366.67 / 1366.67 Lab / Micro Data Result Diagrams: 03/21/21 05:54 03/21/21 05:54 Physical Exam Const Constitutional Narrative: Patient is upset, refusing vitals/IV antibiotics, did allow me to do an abdominal exam. GI soft to palpation, non-tender and non-distended Assessment & Plan Assessment/Plan (1) Perforation of sigmoid colon due to diverticulitis: (2) Hypotension: PLAN: Patient is currently upset as he states he has not had water for 5 days patient was just admitted on Monday. Patient states he wants water denies any abdominal pain also denies any abdominal pain on exam. Also consistently asked if his ride is here. Patient refused IV antibiotics and vitals this morning. As patient is nontender on exam okay for clears. We will try to be discussed patient see if he would even take p.o. Augmentin. Did discuss with Dr. Snow Burrell M.D. Pager: [phone] [facility] [address] [place] [address], [facility], [address] [place] [address] Office: [phone] Charges/Coding Visit Charges Inpatient E&M: 19415 Subs Hosp L2
--- NOTE | 2021-03-22 09:37 | PCM.DC.SUM ---
Providers Date of Admission: 03/20/21 Primary Care Physician: Dr. Woo Pineda MD Consultations 03/20/21 21:48 Consult: General Surgery Routine Consulting Provider: Swathi Burrell Reason for Consult: Acute diverticulitis with perforation EMERGENT Consult: No MD Notified: Yes Date Notified: 03/21/21 Time Notified: 03:11 Method of Notification: Verbal Comments:: MD called in; apparently had been notified by ER 03/20 Reason For Visit: ACUTE DIVIRTICULITIS WITH PERFORATION Diagnosis Discharge Diagnosis (1) Perforation of sigmoid colon due to diverticulitis: Status: Acute Code(s): K57.20 - Diverticulitis of large intestine with perforation and abscess without bleeding (2) Hypotension: Status: Acute Code(s): I95.9 - Hypotension, unspecified Medications at Discharge Home Medications zolpidem 10 mg PO QHS 05/15/16 hydrocodone-acetaminophen 1 tab PO 4X/DAY PRN 09/17/17 apixaban 5 mg PO BID #0 09/18/17 albuterol sulfate 1.25 mg INHALATION Q4H PRN 01/28/19 alprazolam 0.5 mg tablet 1 mg PO BID tab 01/28/19 evolocumab 140 mg/mL subcutaneous pen injector 140 mg SC Q2W 01/28/19 ipratropium 20 mcg-albuterol 100 mcg/actuation mist for inhalation 1 puff INHALATION DAILY 90 Days g 01/28/19 tizanidine 4 mg tablet 4 mg PO TID PRN 01/28/19 atenolol 25 mg tablet 50 mg PO DAILY 01/29/19 furosemide 20 mg PO DAILY 03/20/21 potassium chloride 10 meq PO DAILY 03/20/21 amoxicillin-pot clavulanate 1 tab PO BID 12 Days #24 tab 03/22/21 ondansetron HCl [Zofran] 4 mg PO Q8H PRN #10 tab 03/22/21 pantoprazole 40 mg PO DAILY 30 Days #30 tab 03/22/21 Hospital Course Operations None Procedures EKG Summary of Care Provided Minutes Spent on Discharge: 35 Hospital Course: Discharge Diagnoses: 1. Acute sigmoid diverticulitis with perforation 2. Acute kidney injury secondary to hypovolemia, dehydration with associated hypotension, resolved 3. Hyperkalemia, suspected related to LARY 4. Hyponatremia, suspect secondary to hypovolemia 5. Fusiform thoracic aneurysm, incidental 6. CAD status post prior CABG and PCI 7. CHF, unclear type 8. History of VTE 9. Hypertension 10. Hyperlipidemia 11. Anxiety Discharge Summary: The patient is a 70 y/o M w/ PMHx: CHF Unclear Type, Hx DVT/PE, CAD s/p CABG x 5 and PCI, HTN, HLD, Anxiety who presents to the [facility] ED on 03/20/21 w/ 48 hours of significant lower abdominal pain worsening prior to ED presentation described at that time is excruciating, sharp. Patient was admitted to the medical surgical floor, aggressive fluid resuscitation performed, maintained on Zosyn therapy and tell eventually refused and tore out his IV with then transition to oral Augmentin, general surgery consulted and followed with CT noting possible small perforation with recommended nonsurgical management with antibiotics given patient clinical stability, acute kidney injury upon initial presentation secondary to acute presentation with hypovolemia and dehydration with improvement with transient hold on nephrotoxic agents and IV fluids, correction of hyponatremia and hyperkalemia. Patient with incidentally noted fusiform thoracic aneurysm with recommendation for continued follow-up with his pin puller per his discretion. During admission also recommended he could consider vascular follow-up instead of cardiology if he preferred. On 03/22/2021 patient noted resolved pain and very adamantly declined further inpatient care. General surgery did see him as well as hospitalist medicine and given his abdominal pain was improved allowed clears initiation. Strongly recommended that he reconsider and remain but declined therefore patient transition to oral antibiotic therapy with Augmentin and strongly recommended clear liquids only for the next 2 to 3 days with transition following to full's if improving with outpatient PCP, general surgery and follow-up with his pin puller. General surgery did request continued hold on oral anticoagulant until assured clinically improved indication worsen and necessitate surgery which was relayed to patient with initiation following especially given underlying VT history. Discharge Time: > 35 Minutes DAY OF DISCHARGE PROGRESS NOTE: Subjective: Patient overnight very irritable and angry with staff. Removed IV and refused any antibiotic therapy. Patient adamant about discharge despite discussion with hospitalist medicine, nursing staff and general surgery. Patient notes understanding of risks to leaving and discontinuing IV antibiotic therapy but eventually amenable to at least oral Augmentin therapy. Patient notes that his abdominal pain is significantly improved. Patient denies any nausea, emesis, chest discomfort, dyspnea, fever or chills. Patient insistent upon discharge early in the a.m. Patient will be discharged with follow-up with primary care physician as noted as well as general surgery and cardiology. Objective: T 98.9, heart rate 79, BP 91/57, respiratory rate 18, 99% on room air Physical Examination: General: awake, alert, oriented x > 4, appropriate for self decisions, intermittently following requested commands, laying on the couch in his room, irritable, denies any pain at this time. Skin: normal color, turgor, no icterus, cyanosis. HEENT: AT/NC, EOMI, PERRLA, mildly dry MM. Lungs: CTA bilaterally, moderate effort, mild decrease BL bases, no rales, ronchi or wheezing. Heart: Regular rate and rhythm; no gallop, rub audible. Abdomen: soft, mild discomfort to palpation in the bilateral lower quadrant but states it is better with no rebound or guarding, no obvious distention, mildly hyperactive bowel sounds. Extremities: no cyanosis, clubbing, or edema. Neurological: patient awake, alert, oriented as noted; cognitive function appears intact upon questioning,; pupils equally reactive to light and accommodation; cranial nerves II-XII grossly normal, moving all 4 extremities, strength improved, moving about in his room although continues to be irritable and angry, mildly impulsive. Psychiatric: affect appears irritable, angry, adamant about discharge, no acute evidence of depressive or anxiety feelings. Assessment and Plan: Please see hospital summary above. Weight / BMI Weight Weight: 172 lb 12.808 oz Body Mass Index (BMI) 27.0 ABG / Lab / Microbiology Data Result Diagrams: 03/21/21 05:54 03/21/21 05:54 Meaningful Use Info Meaningful Use Diagnoses (Choose all that apply): None applicable Discharge Plan Admission Admit Date/Time: 03/20/21 20:32 Primary Reason for Your Visit: Acute Diverticulitis w/ Perforation of sigmoid colon Attending Provider: Bozena Adamson Primary Care Provider: Woo Pineda Consulting Providers: Swathi Burrell Instructions Patient Instructions: Diverticulosis Diverticulitis, Discharge Instructions for ... Additional Instructions / Restrictions: Given your refusal of continued inpatient care, we have strongly recommended you complete the oral augmentin antibiotic therapy to completion and continue with a clear liquid diet for the next 2-3 days. If you are tolerating this diet without nausea, emesis or worsening abdominal pain then at that time may transition to full liquids diet and slowly back to your appropriate cardiac diet. From Surgery recommendation please continue to hold your oral anticoagulation for 1 additional week to be cautious in case worsened status and surgical intervention needs given perforation; however, restart immediately following this if clinically remained improved given your VTE history. Please have follow-up with your primary care and with surgery as requested. Contact their office earlier if you have any concerns. Please also assure follow-up with your Radiologic Technician given the recently noted incidental aneurysm on imaging during admission. Discharge Orders/Prescriptions Prescriptions: New pantoprazole 40 mg Tablet,Delayed Release (Dr/Ec) 40 mg PO DAILY 30 Days Qty: 30 RF: 0 amoxicillin-pot clavulanate 875-125 mg Tablet 1 tab PO BID 12 Days Qty: 24 RF: 0 ondansetron HCl [Zofran] 4 mg tablet 4 mg PO Q8H PRN (Reason: nausea and vomiting) Qty: 10 RF: 0 Continued atenolol 25 mg tablet 50 mg PO DAILY RF: 0 tizanidine 4 mg tablet 4 mg PO TID PRN (Reason: Spasms) RF: 0 ipratropium-albuterol 20-100 mcg/actuation mist 1 puff INHALATION DAILY 90 Days RF: 0 albuterol sulfate 2.5 mg /3 mL (0.083 %) solution for nebulization 1.25 mg INHALATION Q4H PRN (Reason: Shortness Of Breath) RF: 0 Repatha SureClick 140 mg/mL pen injector 140 mg SC Q2W RF: 0 zolpidem 10 MG tablet 10 mg PO QHS RF: 0 hydrocodone-acetaminophen 1 EACH tablet 1 tab PO 4X/DAY PRN (Reason: Pain) RF: 0 alprazolam 0.5 mg tablet 1 mg PO BID RF: 0 potassium chloride 10 mEq Capsule, Extended Release 10 meq PO DAILY RF: 0 furosemide 20 mg Tablet 20 mg PO DAILY RF: 0 Held apixaban 5 MG tablet 5 mg PO BID Qty: 0 RF: 0 Hold Instructions: Resume on 03/29/21. May resume in 1 week per surgery recommendation. Referrals / Follow Up: Cardiology, [facility] [Other] (Please follow-up within 1-2 weeks to review recent admission with noted incidental Fusiform thoracic aneurysm (3.6 x 3.1).) Woo Pineda MD [Primary Care Provider] - (Follow-up within 3-5 days to review admission or if worsening earlier. ) Swathi Burrell MD [STAFF PHYSICIAN] - (Follow-up within 1-2 weeks for re-assessment. If pain worsening contact lens flashing puncher for earlier assessment.) Disposition Disposition (needs filled in before D/C Order can be placed): Home, Self Care Charges/Coding Visit Charges Inpatient E&M: 13077 Disch Hosp
--- NOTE | 2021-03-22 10:00 | CASEMGMT ---
RN SILVA NOTE: Pt being discharged home. Per report, pt is upset and is refusing VS's and IV atb's. Per therapy note yesterday, pt also refused therapy. JUAN RAMON ASCENCIO to room to discuss discharge planning. Pt sitting up on couch in his room. Pt states he is ready to go home and denies concerns w/going home and denies needs. He states he does not use any DME to ambulate. He states he does have a nebulizer that he does not use. He denies needs for any further DME. When asked if he has any concerns, questions, or anything this RN CM can assist with he states, Nope. Jonathan SIDDIQIN JUAN RAMON ASCENCIO
[2021-03-22] MEDS: Amox/Clavulanate 875 MG Tablet PO (10:02)
--- NOTE | 2021-03-22 10:03 | NURSING ---
On beginning of shift pt is suspicious and non co-operative with care. He s refusing to be examined by the nurse nor vital signs . into see pt and she is ok with pt given clear liquids. Pt is notified he refuses obsesses about the last 5 days about not having anything to eat. He later agrees to take the oral atb prescribed by several calls to listed phone number no working unable to get intouch with family member. Pt is given instructions for discharge he has arranged a ride for him and is escorted to the lobby.
--- NOTE | 2021-03-23 13:50 | CASEMGMT ---
RN CM Discharge Follow-up Phone Call: RAJESH: Chun Strata: 3 Call Date: 03/23/21 Discharge Date: 03/22/21 Time of Call: 1350 Duration: 1 min Admitting Diagnosis: Acute diverticulitis with perforation RN SILVA attempted to complete follow-up phone call after recent hospitalization. No answer, unable to leave voice mail as mailbox not setup and patient prefers texts
== END 2021-03-22 10:05 | disposition home or self-care (01) | DRG 392 ==
LOC: ED 20:11 → MS3 20:33
PROVIDERS: Admitting Provider Hospitalist; Emergency Provider Emergency Medicine; PCP Family Medicine; Visit Provider Family Medicine
DX: K57.20 Diverticulitis of large intestine with perforation and abscess without bleeding (principal); E87.1 Hypo-osmolality and hyponatremia; N17.9 Acute kidney failure, unspecified; N39.0 Urinary tract infection, site not specified; I95.9 Hypotension, unspecified; E78.5 Hyperlipidemia, unspecified; E86.0 Dehydration; E86.1 Hypovolemia; E87.5 Hyperkalemia; F41.9 Anxiety disorder, unspecified; G25.81 Restless legs syndrome; G89.29 Other chronic pain; I11.0 Hypertensive heart disease with heart failure; I25.10 Atherosclerotic heart disease of native coronary artery without angina pectoris; I50.9 Heart failure, unspecified; I71.2 Thoracic aortic aneurysm, without rupture; J44.9 Chronic obstructive pulmonary disease, unspecified; K21.9 Gastro-esophageal reflux disease without esophagitis; Z86.711 Personal history of pulmonary embolism; Z86.718 Personal history of other venous thrombosis and embolism; Z87.442 Personal history of urinary calculi; Z95.1 Presence of aortocoronary bypass graft; Z79.01 Long term (current) use of anticoagulants; Z79.899 Other long term (current) drug therapy; F17.210 Nicotine dependence, cigarettes, uncomplicated
CPT/HCPCS: 36415; 74177; 80053; 81001; 85025; 94640; 97802; 99285; 99406; J7030; J7040; J7050; Q9967; A4216; J2405

== ENCOUNTER 2021-03-23 23:27 | Inpatient (IN) | payer MEDICARE, SELFPAY ==
[2021-03-20 21:14] VITALS: BMI 27.0
[2021-03-23 23:28] VITALS: BP 158/86; PULSE 135; RESP 21; TEMP 37.3; O2SAT 95; BMI 28.4
--- NOTE | 2021-03-23 23:40 | EKG12_ITS ---
Test Reason : REPEAT Blood Pressure : / mmHG Vent. Rate : 107 BPM Atrial Rate : 108 BPM P-R Int : 000 ms QRS Dur : 116 ms QT Int : 326 ms P-R-T Axes : 000 -21 012 degrees QTc Int : 435 ms Atrial fibrillation with rapid ventricular response Inferior-posterior infarct , possibly acute Consider right ventricular involvement in acute inferior infarct Abnormal ECG Confirmed by DOT DURAND, NOLA ([id number]), editorial writer YARON BOYCE ([id number]) on 03/24/2021 11:56:59 AM Referred By: DELFINA Confirmed By:NOLA CHRIS MD
[2021-03-23 23:48] LABS: Absolute Lymphocyte Count 0.48 X10^3/uL (0.83-4.51); Absolute Neutrophil Count 7.9 X10^3/uL (2.0-7.7); Basophil# 0.03 X10^3/uL; Basophil% 0.3 % (0-1); Eosinophil# 0.02 X10^3/uL; Eosinophils% 0.2 % (0-5); Hematocrit 45.4 % (40-54); Hemoglobin 14.1 g/dL (13.0-16.5); Lymphocyte # 0.48 X10^3/ul (0.83-4.51); Lymphocyte % 5.3 % (19-41); Mean Corp Hgb Conc 31.1 g/dL (32-36); Mean Corpuscular Hgb 27.8 pg (27.0-32.0); Mean Corpuscular Volume 89.5 fL (80-94); Mean Platelet Vol. 9.8 fl (6.2-12.0); Monocyte# 0.62 X10^3/uL; Monocyte% 6.8 % (0-10); NRBC Flagged by Analyzer 0.3 % (0-5); Neutrophil # 7.86 X10^3/uL (2.7-7.7); Neutrophil % 86.8 % (47-70); POSITIVE DIFFERENTIAL YES; Platelet Count 166 K/mm3 (150-450); RBC Distribution Width CV 14.8 % (11.6-14.6); RBC Distribution Width SD 48.2 fl (35.1-43.9); Red Blood Count 5.07 M/mm3 (4.6-6.2); White Blood Count 9.1 K/mm3 (4.4-11.0)
[2021-03-23 23:50] LABS: Differential Indicated SCAN CRITERIA MET
[2021-03-24] VITALS (44 sets, daily range): BP systolic 85–131; BP diastolic 61–99; PULSE 84–120; RESP 16–36; TEMP 36.1–36.6; O2SAT 92–100; BMI 28.0
--- NOTE | 2021-03-24 | RAD_ITS ---
STUDY: X-RAY CHEST REASON FOR EXAM: Male, 70 years old. sob TECHNIQUE: Single AP portable view of the chest. COMPARISON: None. FINDINGS: The lungs on underexpanded with bilateral basilar atelectasis. There is no demonstrated pleural abnormality. Normal size heart. Midline sternotomy wires noted. Normal mediastinum and edson. Normal visualized pulmonary arteries. There is atherosclerotic calcification of the aortic arch with tortuosity. There is demineralization of the osseous structures. Normal visualized ribs, clavicles, and shoulders. There is no demonstrated abnormality of the visualized soft tissue structures of the upper abdomen. RAD/Chest 1 View (Portable) IMPRESSION: Bilateral basilar atelectasis otherwise no acute process Electronically Signed: Riana Muniz MD at 0:44 EDT , Service support ,
[2021-03-24] MEDS: dilTIAZem 25 MG/5 ML Vial 20 MG IV BOLUS (00:03)
[2021-03-24 00:04] LABS: ALB/GLOB Ratio 0.5 RATIO (0.9-2.4); AST(SGOT) 133 U/L (15-37); Alanine Aminotransfer ALT/SGPT 40 U/L (16-61); Albumin, Serum 2.2 g/dL (3.2-5.0); Alkaline Phosphatase 76 U/L (45-117); Anion Gap 6 (5-15); BUN 18 mg/dL (7-18); BUN/Creat Ratio 19.7 RATIO (10-20); Calcium,Total 8.5 mg/dL (8.5-10.1); Chloride 102 mmol/L (98-107); Creatinine, Serum 0.91 mg/dL (0.70-1.30); EST Glomerular Filtration Rate 87 mL/min (>60); Est Glom Filt Rate - Afr Amer 105 mL/min (>60); Estimated Creatinine Clearance 69.61 ml/min; Globulin 4.3 g/dL (2.2-4.2); Glucose 97 mg/dL (74-106); Potassium 3.8 mmol/L (3.5-5.1); Protein, Total 6.5 g/dL (6.4-8.2); Sodium Level 133 mmol/L (136-145)
--- NOTE | 2021-03-24 00:08 | EKG12_ITS ---
Test Reason : MENTAL HEALTH Blood Pressure : / mmHG Vent. Rate : 130 BPM Atrial Rate : 365 BPM P-R Int : 000 ms QRS Dur : 110 ms QT Int : 332 ms P-R-T Axes : 000 -16 008 degrees QTc Int : 488 ms Atrial fibrillation with variable A-V block with premature ventricular or aberrantly conducted comple xes Inferior-posterior infarct , possibly acute Consider right ventricular involvement in acute inferior infarct Abnormal ECG Confirmed by DOT DURAND, NOLA ([id number]), index editor YARON BOYCE ([id number]) on 03/24/2021 12:02:35 PM Referred By: DELFINA Confirmed By:NOLA CHRIS MD
[2021-03-24 00:11] LABS: Differential Comment SCANNED
--- NOTE | 2021-03-24 00:28 | EX.ED.DYSGE1 ---
HPI History of Present Illness Chief Complaint: General Illness Narrative Narrative: 70-year-old male brought in by EMS after fall. Police were notified by neighbors that patient was outside laying in the lawn. Police were concerned about his inability to care for himself. He was recently discharged from the hospital. He was admitted for perforated diverticulitis and was sent home with Augmentin after receiving IV antibiotics. He denies abdominal pain or chest pain. Denies syncope. Per police patient fell multiple times today. He states he has not been eating since leaving the hospital. Prior similar symptoms: Yes Recent Illness/Hospitalization: Yes [facility] Medical History (Updated 03/24/21 @ 01:[address] Corrine Mcnair MD) Atherosclerosis of coronary artery bypass graft without angina pectoris Atherosclerosis of coronary artery of [place] heart without angina pectoris Gaines's esophagus COPD (chronic obstructive pulmonary disease) Diverticulosis Essential hypertension GERD (gastroesophageal reflux disease) History of DVT (deep vein thrombosis) History of pulmonary embolism Hyperlipidemia Insomnia Palpitations Severe low back pain Vitamin D deficiency Home Medications zolpidem 10 mg PO QHS 05/15/16 [History Last Taken 03/23/21] hydrocodone-acetaminophen 1 tab PO 4X/DAY PRN 09/17/17 [History Last Taken 03/20/21 14:00] apixaban 5 mg PO BID #0 09/18/17 [Rx Last Taken 03/23/21] albuterol sulfate 1.25 mg INHALATION Q4H PRN 01/28/19 [History Last Taken Unknown] alprazolam 0.5 mg tablet 1 mg PO BID tab 01/28/19 [History Last Taken 03/23/21] evolocumab 140 mg/mL subcutaneous pen injector 140 mg SC Q2W 01/28/19 [History Last Taken Unknown] ipratropium 20 mcg-albuterol 100 mcg/actuation mist for inhalation 1 puff INHALATION DAILY 90 Days g 01/28/19 [History Last Taken Unknown] tizanidine 4 mg tablet 4 mg PO TID PRN 01/28/19 [History Last Taken Unknown] atenolol 25 mg tablet 50 mg PO DAILY 01/29/19 [History Last Taken 03/23/21] furosemide 20 mg PO DAILY 03/20/21 [History Last Taken 03/23/21] potassium chloride 10 meq PO DAILY 03/20/21 [History Last Taken 03/23/21] amoxicillin-pot clavulanate 1 tab PO BID 12 Days #24 tab 03/22/21 [Rx Last Taken 03/23/21] ondansetron HCl [Zofran] 4 mg PO Q8H PRN #10 tab 03/22/21 [Rx Last Taken 03/23/21] pantoprazole 40 mg PO DAILY 30 Days #30 tab 03/22/21 [Rx Last Taken 03/23/21] Allergy/AdvReac Type Severity Reaction Status Date / Time cetirizine Allergy Severe chest Verified 03/23/21 23:33 pain, irregular heart beat acyclovir [From Zovirax] Allergy Intermediate GI upset Verified 03/23/21 23:33 Cephalosporins Allergy Intermediate abdominal Verified 03/23/21 23:33 pain Oqzhyie-Wxh-Euv Reductase Allergy Intermediate increased Verified 03/23/21 23:33 Inhibitor weakness ciprofloxacin [From Cipro] AdvReac Diarrhea Verified 03/23/21 23:33 doxycycline AdvReac Diarrhea Verified 03/23/21 23:33 Family History Mother Breast cancer Father Colon cancer Cancer prostate Surgical History History of cataract removal with insertion of prosthetic lens History of coronary artery bypass graft Presence of stent in coronary artery Social History Smoking Status: Current some day smoker tobacco type: cigarettes alcohol intake: current alcohol intake frequency: holidays/special occasions only substance use type: does not use caffeine: Yes Type: coffee Number of servings: 1 ROS ROS ED Constitutional Constitutional ED: Denies fever(s) Eyes Eyes: Denies change in vision ENT ENT ED: Denies rhinorrhea or sore throat Cardiovascular Cardiovascular: Denies chest pain or palpitations Respiratory/Chest Respiratory/Chest: Denies cough or dyspnea Gastrointestinal Gastrointestinal: Denies abdominal pain, diarrhea, nausea or vomiting Genitourinary Genitourinary ED: Denies dysuria Musculoskeletal Musculoskeletal: Denies myalgias Integumentary Denies rash Neurologic Neurologic: Denies headache(s) Psychiatric Psychiatric: Denies suicidal thoughts EXAM Physical Exam Const Vital Signs: 03/23/21 23:28 03/23/21 23:34 03/24/21 00:14 Temperature 99.1 F Temperature Source Oral Pulse Rate 135 H 111 H Respiratory Rate 21 H 26 H Respiratory Effort Normal Respiratory Pattern Normal Blood Pressure 158/86 H 111/73 Blood Pressure Mean 110 85 Pulse Ox 95 92 Oxygen Delivery Method Room Air Room Air Oxygen Flow Rate (L/min) 03/24/21 00:51 Temperature Temperature Source Pulse Rate 99 Respiratory Rate 33 H Respiratory Effort Respiratory Pattern Blood Pressure 124/84 H Blood Pressure Mean 97 Pulse Ox 96 Oxygen Delivery Method Nasal Cannula Oxygen Flow Rate (L/min) 2 Positive well nourished and well developed General Appearance ED: well developed HEENT Reports normocephalic and head/scalp atraumatic Eyes PERRL and EOMs intact bilaterally Neck supple General: Negative for tenderness Chest Wall inspection of chest normal Resp normal respiratory effort and clear to auscultation bilaterally Cardio Rate: tachycardic Rhythm: abnormal rhythm irregularly irregular GI non-tender and non-distended Palpation: soft; Negative for guarding or rebound tenderness present no CVA tenderness Extremity normal to inspection Extremity Narrative: Skin tear bilateral elbow with active full range of motion Neuro oriented x3 Sensorium / Orientation: alert Psych mental status grossly normal MDM MDM MDM Narrative Medical decision making narrative: Heart rate initially 135 and irregular. EKG was obtained and shows A. fib with RVR with ST depression in V2 and V3. Patient denies chest pain or chest pressure. Denies any current complaints. He was given aspirin, Cardizem IV. Heart rate improved to 100. Repeat EKG continues to show ST depression in V2 and V3 with mild elevation in lead III. EKGs were discussed with cardiology on-call Dr. Mondragon and Dr. Polanco. With the patient having no chest pain currently he will not be taken emergently to the [facility] at this time. Discussed with hospitalist for admission. Lab Data Attestation: I reviewed the patient's lab results. Labs: Laboratory Results - last 24 hr 03/23/21 03/23/21 03/23/21 23:45 23:45 23:45 WBC 9.1 RBC 5.07 Hgb 14.1 Hct 45.4 MCV 89.5 MCH 27.8 MCHC 31.1 L RDW Std Deviation 48.2 H RDW Coeff of Thierno 14.8 H Plt Count 166 MPV 9.8 Immature Gran % (Auto) 0.600 Neut % (Auto) 86.8 H Lymph % (Auto) 5.3 L [place] % (Auto) 6.8 Eos % (Auto) 0.2 Baso % (Auto) 0.3 Absolute Neuts (auto) 7.9 H Absolute Lymphs (auto) 0.48 L Nucleated RBC % 0.3 Differential Comment SCANNED Sodium 133 L Potassium 3.8 Chloride 102 Carbon Dioxide 25.0 Anion Gap 6 BUN 18 Creatinine 0.91 Estim Creat Clear Calc 69.61 Est GFR (MDRD) Af Amer 105 Est GFR (MDRD) Non-Af 87 BUN/Creatinine Ratio 19.7 Glucose 97 Calcium 8.5 Total Bilirubin 0.50 AST 133 H ALT 40 Alkaline Phosphatase 76 Troponin I High Sens 4553.9 H* Total Protein 6.5 Albumin 2.2 L Globulin 4.3 H Albumin/Globulin Ratio 0.5 L Ethyl Alcohol 03/23/21 23:50 WBC RBC Hgb Hct MCV MCH MCHC RDW Std Deviation RDW Coeff of Thierno Plt Count MPV Immature Gran % (Auto) Neut % (Auto) Lymph % (Auto) [place]asta % (Auto) Eos % (Auto) Baso % (Auto) Absolute Neuts (auto) Absolute Lymphs (auto) Nucleated RBC % Differential Comment Sodium Potassium Chloride Carbon Dioxide Anion Gap BUN Creatinine Estim Creat Clear Calc Est GFR (MDRD) Af Amer Est GFR (MDRD) Non-Af BUN/Creatinine Ratio Glucose Calcium Total Bilirubin AST ALT Alkaline Phosphatase Troponin I High Sens Total Protein Albumin Globulin Albumin/Globulin Ratio Ethyl Alcohol 6.0 Radiography Chest X-Ray - ED: 1 View, Read by ED Physician, Read by Radiologist and No Acute Disease Diagnostic Testing: Radiology Impression Chest X-Ray 03/24/21 00:00 IMPRESSION: Bilateral basilar atelectasis otherwise no acute process Electronically Signed: Riana Muniz MD at 0:44 EDT , Service support , Brain CT 03/24/21 23:40 IMPRESSION: Chronic changes as described. No acute intracranial hemorrhage or space-occupying lesion. Electronically Signed: Riana Muniz MD at 0:57 EDT , Service support , EKG Initial EKG: Attestation: I personally reviewed and interpreted this EKG as follows: Interpretation: Atrial Fibrillation and S-T Depression (V2 and V3) Prior EKG tracings: available for review Follow-up EKG: Attestation: I personally reviewed and interpreted this EKG as follows: Interpretation: Atrial Fibrillation and S-T Depression (V2 and V3) Prior EKG tracings: available for review Discharge Plan Triage Chief Complaint: General Illness ED Provider: Corrine Mcnair Dx/Rx/DC Orders Clinical Impression: Atrial fibrillation with rapid ventricular response, Elevated troponin, Frequent falls Prescriptions: No Action atenolol 25 mg tablet 50 mg PO DAILY RF: 0 tizanidine 4 mg tablet 4 mg PO TID PRN (Reason: Spasms) RF: 0 ipratropium-albuterol 20-100 mcg/actuation mist 1 puff INHALATION DAILY 90 Days RF: 0 albuterol sulfate 2.5 mg /3 mL (0.083 %) solution for nebulization 1.25 mg INHALATION Q4H PRN (Reason: Shortness Of Breath) RF: 0 Repatha SureClick 140 mg/mL pen injector 140 mg SC Q2W RF: 0 zolpidem 10 MG tablet 10 mg PO QHS RF: 0 hydrocodone-acetaminophen 1 EACH tablet 1 tab PO 4X/DAY PRN (Reason: Pain) RF: 0 apixaban 5 MG tablet 5 mg PO BID Qty: 0 RF: 0 Hold Instructions: Resume on 03/29/21. May resume in 1 week per surgery recommendation. alprazolam 0.5 mg tablet 1 mg PO BID RF: 0 potassium chloride 10 mEq Capsule, Extended Release 10 meq PO DAILY RF: 0 furosemide 20 mg Tablet 20 mg PO DAILY RF: 0 pantoprazole 40 mg Tablet,Delayed Release (Dr/Ec) 40 mg PO DAILY 30 Days Qty: 30 RF: 0 amoxicillin-pot clavulanate 875-125 mg Tablet 1 tab PO BID 12 Days Qty: 24 RF: 0 ondansetron HCl [Zofran] 4 mg tablet 4 mg PO Q8H PRN (Reason: nausea and vomiting) Qty: 10 RF: 0 Primary Care Provider: Woo Pineda Referrals: Woo Pineda MD [Primary Care Provider] - Disposition Disposition: Acute Care Hospital [facility]
[2021-03-24 00:29] LABS: Troponin-I HS 4553.9 pg/mL (3.0-78.5)
--- NOTE | 2021-03-24 01:26 | HP.PCM.HOS_ITS ---
HPI - General General Date of Admission: 03/24/21 HPI Narrative ADRIANNE ALVAREZ, is a 70 M who with a PMH as outlined who presents with a complaint of mechanical fall. Police were called after he was found lying on the lawn by his neighbors. Patient had recently been discharged from [facility] after being managed for acute perforated diverticulitis and was discharged home 1 day ago. He hasnt been eating and drinking since he went home, and fell at home. He was therefore brought in to the ED for mechanical fall and debility. Review of systems was negative for chest pain, palpitations, dizziness, nausea, abdominal pain or any other symptoms. Review of systems was otherwise negative. Vitals showed tachycardia, with afib with RVR, BP of 124/84, and RR of 33, as well as saturating at 96% on room air. Labs showed hb of 14.1, wbc of 9.1 and platelets of 166. Chemistry showed sodium of 133 but was otherwise unremarkable. High sensitivity troponin was 4553. EKG showed afib wtih RVR and ST depression inn leads V2 and V3. EKG was discussed with cardiologists personal financial representative- Dr Mondragon and Dr Polanco who didnt think it required emergent cath as hermilaetnt was not having any chest pain. He is being admitted to be managed for nonstemi and new onset afib with RVR. [facility] Medical History (Updated 03/24/21 @ 01:[address] Grisel Moore MD) Atherosclerosis of coronary artery bypass graft without angina pectoris Atherosclerosis of coronary artery of [place] heart without angina pectoris Gaines's esophagus COPD (chronic obstructive pulmonary disease) Diverticulosis Essential hypertension GERD (gastroesophageal reflux disease) History of DVT (deep vein thrombosis) History of pulmonary embolism Hyperlipidemia Insomnia Palpitations Severe low back pain Vitamin D deficiency Home Medications zolpidem 10 mg PO QHS 05/15/16 [History Last Taken 03/23/21] hydrocodone-acetaminophen 1 tab PO 4X/DAY PRN 09/17/17 [History Last Taken 03/20/21 14:00] apixaban 5 mg PO BID #0 09/18/17 [Rx Last Taken 03/23/21] albuterol sulfate 1.25 mg INHALATION Q4H PRN 01/28/19 [History Last Taken Unknown] alprazolam 0.5 mg tablet 1 mg PO BID tab 01/28/19 [History Last Taken 03/23/21] evolocumab 140 mg/mL subcutaneous pen injector 140 mg SC Q2W 01/28/19 [History Last Taken Unknown] ipratropium 20 mcg-albuterol 100 mcg/actuation mist for inhalation 1 puff INHALATION DAILY 90 Days g 01/28/19 [History Last Taken Unknown] tizanidine 4 mg tablet 4 mg PO TID PRN 01/28/19 [History Last Taken Unknown] atenolol 25 mg tablet 50 mg PO DAILY 01/29/19 [History Last Taken 03/23/21] furosemide 20 mg PO DAILY 03/20/21 [History Last Taken 03/23/21] potassium chloride 10 meq PO DAILY 03/20/21 [History Last Taken 03/23/21] amoxicillin-pot clavulanate 1 tab PO BID 12 Days #24 tab 03/22/21 [Rx Last Taken 03/23/21] ondansetron HCl [Zofran] 4 mg PO Q8H PRN #10 tab 03/22/21 [Rx Last Taken 03/23/21] pantoprazole 40 mg PO DAILY 30 Days #30 tab 03/22/21 [Rx Last Taken 03/23/21] Allergy/AdvReac Type Severity Reaction Status Date / Time cetirizine Allergy Severe chest Verified 03/23/21 23:33 pain, irregular heart beat acyclovir [From Zovirax] Allergy Intermediate GI upset Verified 03/23/21 23:33 Cephalosporins Allergy Intermediate abdominal Verified 03/23/21 23:33 pain Ukzrdtc-Xya-Kmy Reductase Allergy Intermediate increased Verified 03/23/21 23:33 Inhibitor weakness ciprofloxacin [From Cipro] AdvReac Diarrhea Verified 03/23/21 23:33 doxycycline AdvReac Diarrhea Verified 03/23/21 23:33 Family History Mother Breast cancer Father Colon cancer Cancer prostate Surgical History History of cataract removal with insertion of prosthetic lens History of coronary artery bypass graft Presence of stent in coronary artery Social History Smoking Status: Current some day smoker tobacco type: cigarettes alcohol intake: current alcohol intake frequency: holidays/special occasions only substance use type: does not use caffeine: Yes Type: coffee Number of servings: 1 ROS Review of Systems ROS Unobtainable: Denies due to encephalopathy Constitutional Constitutional: Reports anorexia, fatigue, malaise and weakness; Denies change in weight, chills, fever(s) or night sweats Eyes Eyes: Denies blurry vision or double vision ENT HEENT: Denies dysphagia, headache(s), nasal congestion or nasal discharge Cardiovascular Cardiovascular: Denies chest pain, dyspnea on exertion, edema, lightheadedness, orthopnea, palpitations, paroxysmal nocturnal dyspnea, rapid heart rate or syncope Respiratory/Chest Respiratory/Chest: Denies cough, dyspnea, productive cough, shortness of breath at rest or shortness of breath with exertion Gastrointestinal Gastrointestinal: Denies abdominal pain, constipation, diarrhea, nausea or vomiting Genitourinary Genitourinary: Denies burning urination, difficulty urinating or urinary frequency Musculoskeletal Musculoskeletal: Denies arthralgias Neurologic Neurologic: Denies confusion, dizziness, focal weakness or numbness Psychiatric Psychiatric: Denies anxiety or depression Endocrine Endocrinology: Denies change in body appearance Hematologic/Lymphatic Hematologic/Lymphatic: Denies anemia Vital Signs Vital Signs Vital Signs: 03/23/21 23:28 03/23/21 23:34 03/24/21 00:14 Temperature 99.1 F Temperature Source Oral Pulse Rate 135 H 111 H Respiratory Rate 21 H 26 H Respiratory Effort Normal Respiratory Pattern Normal Blood Pressure 158/86 H 111/73 Blood Pressure Mean 110 85 Pulse Ox 95 92 Oxygen Delivery Method Room Air Room Air Oxygen Flow Rate (L/min) 03/24/21 00:51 Temperature Temperature Source Pulse Rate 99 Respiratory Rate 33 H Respiratory Effort Respiratory Pattern Blood Pressure 124/84 H Blood Pressure Mean 97 Pulse Ox 96 Oxygen Delivery Method Nasal Cannula Oxygen Flow Rate (L/min) 2 Weight Weight: 181 lb 10.574 oz Body Mass Index (BMI) 28.4 Physical Exam Const Negative for alert, oriented x3 or no apparent distress General Appearance: Negative for cooperative HEENT Negative for normocephalic, head/scalp atraumatic, hearing grossly normal bilaterally or moist oral mucous membranes Eyes Negative for PERRL, EOMs intact bilaterally or conjunctivae normal Neck No no lymphadenopathy, No supple and No no JVD Resp No normal respiratory effort, No no retractions, No no use of accessory muscles and No clear to auscultation bilaterally Cardio Negative for S1 normal heart sound, S2 normal heart sound or no murmurs Cardio Narrative: atrial fibrillation GI Negative for normal to inspection, nondistended, normoactive bowel sounds, soft to palpation, non-tender or non-distended Extremity Negative for normal to inspection, full ROM or no clubbing, cyanosis or edema Peripheral Pulses: Negative for pulses 2+ throughout Skin No no rashes or lesions noted Neuro No oriented x3 Sensorium / Orientation: Negative for awake or alert Psych Negative for affect normal Results Lab / Micro Data Result Diagrams: 03/23/21 23:45 03/23/21 23:45 Labs: Laboratory Results - last 24 hr 03/23/21 23:45: WBC 9.1, RBC 5.07, Hgb 14.1, Hct 45.4, MCV 89.5, MCH 27.8, MCHC 31.1 L, RDW Std Deviation 48.2 H, RDW Coeff of Thierno 14.8 H, Plt Count 166, MPV 9.8, Immature Gran % (Auto) 0.600, Neut % (Auto) 86.8 H, Lymph % (Auto) 5.3 L, [place] % (Auto) 6.8, Eos % (Auto) 0.2, Baso % (Auto) 0.3, Absolute Neuts (auto) 7.9 H, Absolute Lymphs (auto) 0.48 L, Nucleated RBC % 0.3, Differential Comment SCANNED 03/23/21 23:45: Sodium 133 L, Potassium 3.8, Chloride 102, Carbon Dioxide 25.0, Anion Gap 6, BUN 18, Creatinine 0.91, Estim Creat Clear Calc 69.61, Est GFR (MDRD) Af Amer 105, Est GFR (MDRD) Non-Af 87, BUN/Creatinine Ratio 19.7, Glucose 97, Calcium 8.5, Total Bilirubin 0.50, AST 133 H, ALT 40, Alkaline Phosphatase 76, Total Protein 6.5, Albumin 2.2 L, Globulin 4.3 H, Albumin/Globulin Ratio 0.5 L 03/23/21 23:45: Troponin I High Sens 4553.9 H* 03/23/21 23:50: Ethyl Alcohol 6.0 Radiology Impression Chest X-Ray 03/24/21 00:00 IMPRESSION: Bilateral basilar atelectasis otherwise no acute process Electronically Signed: Riana Muniz MD at 0:44 EDT , Service support , Brain CT 03/24/21 23:40 IMPRESSION: Chronic changes as described. No acute intracranial hemorrhage or space-occupying lesion. Electronically Signed: Riana Muniz MD at 0:57 EDT , Service support , Assessment & Plan Assessment/Plan (1) Atrial fibrillation with rapid ventricular response: (2) NSTEMI, initial episode of care: PLAN: #Afib with RVR * admit to ICU * HR down after he was given a cardizem bolus * start on heparin drip. * cardiology consult * start on cardizem drip as HR was back up in the 120s-130s on review in the ER * 2D echo * check TSH; K and Mg within normal limits * #Nonstemi * troponin >4500 * EKG showed afib with st depression in V1-V2, concerning for an acute posterior MN * ED physician sent EKG to both Dr Mondragon and Dr Polanco; per ED doctor, interventional cardiologists didnt think he needed to be sent emergently to the [facility] as he wasnt having any pain. * start on heparin drip * give aspirin and plavix loading dose * cardiology consult placed to Dr Polanco * patient allergic to statin. * cycle troponins * 2Decho ordered * #Hypertension: on atenolol and lasix #reent history of acute diverticulitis with perforation * Discharged home 2 days ago on augmentin for 5 days. Will continue to finish 5 day course * #CAD s/p CABG: not on aspirin or plavix; CABG x 5 done ~ 10 years ago #Hyperlipidemia: on repatha. Allergic to statins DVT prophylaxis: on heparin drip Code status: full code * Patient counseled extensively about different types of CODE STATUS including full code, DNR CCA and DNR CCA. Patient elects to be full code. * Total [id number]-[id number] time 17 minutes. Total critical care time spent: 45 mins. Charges/Coding Visit Charges Inpatient E&M: 76444 Init Hosp L3 Procedures Hospitalists Procedures: 99272 Critial Care 1st Hr (advanced care plan [id number])
--- NOTE | 2021-03-24 01:45 | EKG12_ITS ---
Test Reason : REPEAT EKG Blood Pressure : / mmHG Vent. Rate : 111 BPM Atrial Rate : 138 BPM P-R Int : 000 ms QRS Dur : 118 ms QT Int : 378 ms P-R-T Axes : 000 018 056 degrees QTc Int : 514 ms Atrial fibrillation with premature ventricular or aberrantly conducted complexes Confirmed by DOT DURAND, NOLA ([id number]), newspaper copy editor YARON BOYCE ([id number]) on 03/26/2021 9:38:06 AM Referred By: OLLIE Confirmed By:NOLA CHRIS MD
[2021-03-24 01:59] LABS: Mucous, Urine 0 SEEN /hpf (<or=2+); Squamous Epithelial Cells - UA 0 SEEN /hpf (0-5); White Blood Cells 0 SEEN /hpf (0-5)
[2021-03-24 02:00] LABS: Color, Urine Yellow (Yellow); Glucose, Dipstick Normal (Normal); Ketone-Dipstick Negative (Negative); Leukocyte Esterase-Dipstick Negative /ul (Negative); Nitrite-Dipstick Negative (Negative); Occult Blood-Urine 250 /ul (Negative); Protein-Dipstick 100 mg/dl (Negative); Specific Gravity, Urine 1.015 (1.002-1.030); Urine Bilirubin Dipstick Negative (Negative); Urine Clarity Cloudy (Clear); Urine Urobilinogen 1 mg/dl (Normal)
[2021-03-24 02:05] LABS: Bacteria 1+ /hpf (None Seen); Red Blood Cells-Urine 5-10 SEEN /hpf (0-5); Transitional Epithelial - Ur 0-5 SEEN /hpf (0-5)
[2021-03-24 02:20] LABS: International Normalized Ratio 1.3; Prothrombin Time (Protime)PT. 15.2 SECONDS (11.7-14.9)
[2021-03-24 02:21] LABS: Partial Thromboplast Time 26.4 Seconds (24.1-36.2)
--- NOTE | 2021-03-24 02:27 | ECHOD_ITS ---
Reason For Study: A. fib Procedure This was a 2D Doppler, Color Flow transthoracic echocardiogram. Exam performed portable in ICU/CCU. Left Ventricle Normal LV size. The estimated ejection fraction is 40-45 %. Unable to assess diastolic dysfunction. Hypokinesis of the inferior and posterior wall. Right Ventricle Normal RV size. Normal systolic function. Atria The left atrium is severely enlarged. Normal right atrium. No doppler evidence for ASD. Mitral Valve There is no mitral valve stenosis. Trivial mitral valve insufficiency. Tricuspid Valve There is no tricuspid stenosis. Trivial tricuspid valve insufficiency. Pulmonary artery systolic pressure is 35-40 mmHg. Aortic Valve Moderate diffuse aortic valve thickening. There is no aortic stenosis. No aortic valve insufficiency. Pulmonic Valve There is no pulmonic valvular stenosis. Mild (1+) pulmonic valve insufficiency. Great Vessels Normal aortic root. Pericardium/Pleural No pericardial effusion. MMode/2D Measurements & Calculations LVIDd: 5.2 cm IVSd: 1.1 cm LVOT diam: 2.1 cm LVIDs: 4.3 cm LVPWd: 1.2 cm LVOT area: 3.4 cm2 RVDd: 3.8 cm FS: 18.1 % Ao root diam: 3.9 cm LAV(MOD-bp): 114.5 ml LA A4 area: 29.9 cm2 LAV(MOD-bp) Indexed: 59.3 ml/m2 LAV(MOD-sp2): 106.7 ml LAV(MOD-sp4): 105.4 ml LA dimension(2D): 5.6 cm RA A4 area: 19.0 cm2 Doppler Measurements & Calculations MV E max natividad: 85.6 cm/sec Ao V2 max: 132.5 cm/sec LV V1 max: 86.0 cm/sec Ao max P.0 mmHg LV V1 max P.0 mmHg SIMON(V,D): 2.2 cm2 PA V2 max: 98.1 cm/sec TR max natividad: 266.1 cm/sec TR max P.5 mmHg ECHO/Echo Complete Interpretation Summary The estimated ejection fraction is 40-45 %. Unable to assess diastolic dysfunction. Hypokinesis of the inferior and posterior wall The left atrium is severely enlarged. Trivial mitral valve insufficiency. Trivial tricuspid valve insufficiency. Moderate diffuse aortic valve thickening. Ordering Physician: Grisel Moore Referring Physician: Woo Pineda Performed By: Micki Escoto RDCS
[2021-03-24 02:29] LABS: BNP,B-Type NATRIURETIC PEPTIDE 957.2 pg/mL (0-100)
[2021-03-24 02:32] LABS: Anion Gap 6 (5-15); BUN 16 mg/dL (7-18); BUN/Creat Ratio 22.8 RATIO (10-20); Chloride 104 mmol/L (98-107); EST Glomerular Filtration Rate 117 mL/min (>60); Est Glom Filt Rate - Afr Amer 142 mL/min (>60); Estimated Creatinine Clearance 63.35 ml/min; Glucose 102 mg/dL (74-106); Potassium 3.6 mmol/L (3.5-5.1); Sodium Level 133 mmol/L (136-145)
[2021-03-24] MEDS: Aspirin 81 MG TAB.CHEW 324 MG PO (02:54)
[2021-03-24] MEDS: HYDROcodone Bitartrate/Apap 5/325 Tablet PO ×2 (02:55→18:57)
[2021-03-24] MEDS: Heparin Injection (Vial) 5,000 UNIT/ML VIAL 4000 UNIT IV (02:57)
[2021-03-24] MEDS: HEPARIN/D5w 25,000 UNITS 25,000 UNITS/250 ML IV.SOLN. 10 UNITS IV (02:58)
[2021-03-24] MEDS: Clopidogrel Bisulfate 300 MG Tablet PO (03:15)
[2021-03-24 06:05] LABS: Absolute Lymphocyte Count 0.62 X10^3/uL (0.83-4.51); Absolute Neutrophil Count 7.9 X10^3/uL (2.0-7.7); Basophil# 0.02 X10^3/uL; Basophil% 0.2 % (0-1); Eosinophil# 0.03 X10^3/uL; Eosinophils% 0.3 % (0-5); Hematocrit 41.3 % (40-54); Hemoglobin 13.1 g/dL (13.0-16.5); Lymphocyte # 0.62 X10^3/ul (0.83-4.51); Lymphocyte % 6.7 % (19-41); Mean Corp Hgb Conc 31.7 g/dL (32-36); Mean Corpuscular Hgb 28.3 pg (27.0-32.0); Mean Corpuscular Volume 89.2 fL (80-94); Mean Platelet Vol. 10.4 fl (6.2-12.0); Monocyte% 7.5 % (0-10); NRBC Flagged by Analyzer 0.2 % (0-5); Neutrophil # 7.85 X10^3/uL (2.7-7.7); Neutrophil % 84.3 % (47-70); Platelet Count 147 K/mm3 (150-450); RBC Distribution Width CV 14.7 % (11.6-14.6); RBC Distribution Width SD 48.2 fl (35.1-43.9); Red Blood Count 4.63 M/mm3 (4.6-6.2); White Blood Count 9.3 K/mm3 (4.4-11.0)
[2021-03-24 06:18] LABS: Anion Gap 7 (5-15); BUN 15 mg/dL (7-18); BUN/Creat Ratio 21.9 RATIO (10-20); Calcium,Total 8.4 mg/dL (8.5-10.1); Chloride 105 mmol/L (98-107); Creatinine, Serum 0.68 mg/dL (0.70-1.30); EST Glomerular Filtration Rate 121 mL/min (>60); Est Glom Filt Rate - Afr Amer 147 mL/min (>60); Estimated Creatinine Clearance 63.35 ml/min; Glucose 116 mg/dL (74-106); Potassium 3.6 mmol/L (3.5-5.1); Sodium Level 137 mmol/L (136-145)
[2021-03-24] MEDS: Amox/Clavulanate 875 MG Tablet PO ×2 (08:06→17:29)
[2021-03-24] MEDS: Potassium Chloride Oral Tablet 10 MEQ PO (08:06)
[2021-03-24] MEDS: Pantoprazole Sodium 40 MG Tablet PO (08:07)
[2021-03-24] MEDS: Furosemide 20 MG Tablet PO (09:27)
[2021-03-24] MEDS: ALPRAZolam 0.5 MG Tablet 1 MG PO ×2 (09:27→21:18)
[2021-03-24 10:01] LABS: Partial Thromboplast Time 42.3 Seconds (24.1-36.2)
--- NOTE | 2021-03-24 10:29 | CON.PCM.CC_ITS ---
Assessment & Plan Assessment/Plan (1) Atrial fibrillation with rapid ventricular response: PLAN: RECOMMENDATIONS: 1. Wean supplemental oxygen to maintain saturations at or above 90%. 2. Continue scheduled bronchodilator therapy. 3. Nicotine replacement therapy can be offered to the patient while admitted to the hospital. 4. Encourage incentive spirometer use and mobilize patient as tolerated. 5. Perform walking oximetry study prior to consideration for discharge home. 6. Outpatient pulmonary follow-up in 2 weeks can be arranged, if the patient is agreeable. 7. Will sign off from a critical care perspective. Please call with any additional questions. IMPRESSIONS: 1. Non-ST segment elevation [place] The patient is currently being followed by cardiology, with ongoing medical management per their discretion. Repeat echocardiogram is currently pending. 2. Atrial fibrillation with RVR/history of coronary artery disease Continue rate/rhythm control strategy per cardiology recommendations. 3. Chronic tobacco dependency The patient does have an extensive tobacco abuse history with questionable obstructive lung disease. I personally spent 4 minutes discussing the delet erious effects of continued tobacco use with the patient, including modalities which could be utilized to achieve a smoke-free lifestyle. Nicotine replacement therapy can be offered to the patient while admitted to the hospital. The patient should follow-up in the pulmonary medicine clinic after discharge so that baseline PFTs can be obtained. 4. Recent admission for diverticulitis with perforation Continue medical management including antimicrobials per prior recommendations from recent hospitalization. 5. History of hypertension/hyperlipidemia/GERD Complicates care, management, recovery and prognosis. Continue home medications as indicated. This note was generated with [employer] dictation software. It may contain incorrect words, spelling, and punctuation that were not noted in checking the note before signing. HPI Consult Data Date of Consult: 03/25/21 HPI Narrative Reason for Consultation: Atrial fibrillation with RVR HPI Narrative: The patient is a 70-year-old male, with a history as outlined below, who presented to the emergency department on March 24 after sustaining a mechanical fall. The patient had just been discharged from the hospital the day prior after having been admitted with acute sigmoid diverticulitis with perforation. The patient does have a known history of coronary artery disease status post CABG along with residual LV dysfunction, currently followed by Dr. Polanco in the cardiology clinic. On presentation to the emergency department, the patient was noted to be afebrile but was tachycardic and tachypneic. Laboratory evaluation revealed a normal white blood cell count. Coagulation profile revealed an INR of 1.3. C hemistry profile was unremarkable. Troponin was elevated at 4553. BNP was elevated to 957. Urine analysis was unremarkable. Chest x-ray revealed basilar atelectasis. CT head revealed no acute intracranial pathology. While in the emergency department, the patient was noted to be in atrial fibrillation with a rapid ventricular rate. The patient was treated with IV Cardizem. Cardiology was consulted. The patient was subsequently admitted to the hospital for further management. The patient does report a chronic tobacco abuse history, but has never been followed by a pc network technician. He has never completed pulmonary function studies, but states that he has been diagnosed with COPD previously. The patient does report that he has access to inhalers in his home environment but does not u tilize them regularly. He does not utilize supplemental oxygen at his baseline. He is currently smoking 0.5 packs of cigarettes per day. [facility] Medical History (Updated 03/24/21 @ 01:[address] Grisel Moore MD) Atherosclerosis of coronary artery bypass graft without angina pectoris Atherosclerosis of coronary artery of [place] heart without angina pectoris Gaines's esophagus COPD (chronic obstructive pulmonary disease) Diverticulosis Essential hypertension GERD (gastroesophageal reflux disease) History of DVT (deep vein thrombosis) History of pulmonary embolism Hyperlipidemia Insomnia Palpitations Severe low back pain Vitamin D deficiency Home Medications zolpidem 10 mg PO QHS 05/15/16 [History Last Taken 03/23/21] hydrocodone-acetaminophen 1 tab PO 4X/DAY PRN 09/17/17 [History Last Taken 03/20/21 14:00] apixaban 5 mg PO BID #0 09/18/17 [Rx Last Taken 03/23/21] albuterol sulfate 1.25 mg INHALATION Q4H PRN 01/28/19 [History Last Taken Unknown] alprazolam 0.5 mg tablet 1 mg PO BID tab 01/28/19 [History Last Taken 03/23/21] evolocumab 140 mg/mL subcutaneous pen injector 140 mg SC Q2W 01/28/19 [History Last Taken Unknown] ipratropium 20 mcg-albuterol 100 mcg/actuation mist for inhalation 1 puff INHALATION DAILY 90 Days g 01/28/19 [History Last Taken Unknown] tizanidine 4 mg tablet 4 mg PO TID PRN 01/28/19 [History Last Taken Unknown] atenolol 25 mg tablet 50 mg PO DAILY 01/29/19 [History Last Taken 03/23/21] furosemide 20 mg PO DAILY 03/20/21 [History Last Taken 03/23/21] potassium chloride 10 meq PO DAILY 03/20/21 [History Last Taken 03/23/21] amoxicillin-pot clavulanate 1 tab PO BID 12 Days #24 tab 03/22/21 [Rx Last Taken 03/23/21] ondansetron HCl [Zofran] 4 mg PO Q8H PRN #10 tab 03/22/21 [Rx Last Taken 03/23/21] pantoprazole 40 mg PO DAILY 30 Days #30 tab 03/22/21 [Rx Last Taken 03/23/21] Allergy/AdvReac Type Severity Reaction Status Date / Time cetirizine Allergy Severe chest Verified 03/23/21 23:33 pain, irregular heart beat acyclovir [From Zovirax] Allergy Intermediate GI upset Verified 03/23/21 23:33 Cephalosporins Allergy Intermediate abdominal Verified 03/23/21 23:33 pain Zkeqybn-Qmw-Xbi Reductase Allergy Intermediate increased Verified 03/23/21 23:33 Inhibitor weakness ciprofloxacin [From Cipro] AdvReac Diarrhea Verified 03/23/21 23:33 doxycycline AdvReac Diarrhea Verified 03/23/21 23:33 Family History Mother Breast cancer Father Colon cancer Cancer prostate Surgical History History of cataract removal with insertion of prosthetic lens History of coronary artery bypass graft Presence of stent in coronary artery Social History Smoking Status: Current some day smoker tobacco type: cigarettes alcohol intake: current alcohol intake frequency: holidays/special occasions only substance use type: does not use caffeine: Yes Type: coffee Number of servings: 1 ROS Constitutional Constitutional: Reports fatigue; Denies chills or fever(s) Eyes Eyes: Denies blurry vision or change in vision ENT HEENT: Denies headache(s), hoarseness or loss taste/smell Cardiovascular Cardiovascular: Reports dyspnea and irregular heart rhythm Respiratory/Chest Respiratory/Chest: Reports dyspnea Gastrointestinal Gastrointestinal: Denies abdominal pain, diarrhea, nausea or vomiting Genitourinary Genitourinary: Denies difficulty urinating Musculoskeletal Musculoskeletal: Denies arthralgias or back pain Integumentary Integumentary: Denies lesions, rash or skin ulcer Neurologic Neurologic: Denies abnormal gait Psychiatric Psychiatric: Denies anxiety or depression Endocrine Endocrinology: Reports fatigue Hematologic/Lymphatic Hematologic/Lymphatic: Denies easy bleeding or easy bruising Physical Exam Const alert and no apparent distress General Appearance: cooperative HEENT normocephalic and head/scalp atraumatic Eyes PERRL, EOMs intact bilaterally and conjunctivae normal Neck supple General: trachea midline Resp Auscultation: diminished lung sounds; Negative for rales, rhonchi or wheezes Cardio Rate: tachycardic Rhythm: abnormal rhythm GI normal to inspection, nondistended, normoactive bowel sounds Extremity no clubbing, cyanosis or edema Skin no rashes or lesions noted Neuro CN's II-XII intact bilaterally, moves all extremities and no focal motor deficits Psych Mood & Affect: flat affect Lab / Micro Data Result Diagrams: 03/24/21 06:00 03/24/21 06:00 Labs: Laboratory Results - last 24 hr 03/23/21 23:45: WBC 9.1, RBC 5.07, Hgb 14.1, Hct 45.4, MCV 89.5, MCH 27.8, MCHC 31.1 L, RDW Std Deviation 48.2 H, RDW Coeff of Thierno 14.8 H, Plt Count 166, MPV 9.8, Immature Gran % (Auto) 0.600, Neut % (Auto) 86.8 H, Lymph % (Auto) 5.3 L, [place] % (Auto) 6.8, Eos % (Auto) 0.2, Baso % (Auto) 0.3, Absolute Neuts (auto) 7.9 H, Absolute Lymphs (auto) 0.48 L, Nucleated RBC % 0.3, Differential Comment SCANNED 03/23/21 23:45: Sodium 133 L, Potassium 3.8, Chloride 102, Carbon Dioxide 25.0, Anion Gap 6, BUN 18, Creatinine 0.91, Estim Creat Clear Calc 69.61, Est GFR (MDRD) Af Amer 105, Est GFR (MDRD) Non-Af 87, BUN/Creatinine Ratio 19.7, Glucose 97, Calcium 8.5, Total Bilirubin 0.50, AST 133 H, ALT 40, Alkaline Phosphatase 76, Total Protein 6.5, Albumin 2.2 L, Globulin 4.3 H, Albumin/Globulin Ratio 0.5 L 03/23/21 23:45: Troponin I High Sens 4553.9 H* 03/23/21 23:45: B-Natriuretic Peptide 957.2 H 03/23/21 23:50: Ethyl Alcohol 6.0 03/24/21 01:55: Urine Color Yellow, Urine Clarity Cloudy, Urine pH 5.0, Ur Specific [place] 1.015, Urine Protein 100 H, Urine Glucose (UA) Normal, Urine Ketones Negative, Urine Occult Blood 250 H, Urine Nitrite Negative, Urine Bilirubin Negative, Urine Urobilinogen 1 H, Ur Leukocyte Esterase Negative, Urine RBC 5-10 SEEN, Urine WBC 0 SEEN, Ur Squamous Epith Cells 0 SEEN, Ur Transition Epith Cell 0-5 SEEN, Urine Bacteria 1+, Urine Mucus 0 SEEN 03/24/21 02:05: PT 15.2 H, INR 1.3, APTT 26.4 03/24/21 02:05: Sodium 133 L, Potassium 3.6, Chloride 104, Carbon Dioxide 23.0, Anion Gap 6, BUN 16, Creatinine 0.70, Estim Creat Clear Calc 63.35, Est GFR (M DRD) Af Amer 142, Est GFR (MDRD) Non-Af 117, BUN/Creatinine Ratio 22.8 H, Glu cose 102, Calcium 8.0 L, Troponin I High Sens 4502.5 H* 03/24/21 06:00: WBC 9.3, RBC 4.63, Hgb 13.1, Hct 41.3, MCV 89.2, MCH 28.3, MCHC 31.7 L, RDW Std Deviation 48.2 H, RDW Coeff of Thierno 14.7 H, Plt Count 147 L, MPV 10.4, Immature Gran % (Auto) 1.000 H, Neut % (Auto) 84.3 H, Lymph % (Auto) 6.7 L , [place] % (Auto) 7.5, Eos % (Auto) 0.3, Baso % (Auto) 0.2, Absolute Neuts (auto) 7.9 H, Absolute Lymphs (auto) 0.62 L, Nucleated RBC % 0.2 03/24/21 06:00: Sodium 137, Potassium 3.6, Chloride 105, Carbon Dioxide 25.0, Anion Gap 7, BUN 15, Creatinine 0.68 L, Estim Creat Clear Calc 63.35, Est GFR (MDRD) Af Amer 147, Est GFR (MDRD) Non-Af 121, BUN/Creatinine Ratio 21.9 H, Glucose 116 H, Calcium 8.4 L 03/24/21 06:00: Troponin I High Sens 3397.6 H* 03/24/21 09:04: APTT 42.3 H Radiology Impression Chest X-Ray 03/24/21 00:00 IMPRESSION: Bilateral basilar atelectasis otherwise no acute process Electronically Signed: Riana Muniz MD at 0:44 EDT , Service support , Brain CT 03/24/21 23:40 IMPRESSION: Chronic changes as described. No acute intracranial hemorrhage or space-occupying lesion. Electronically Signed: Riana Muniz MD at 0:57 EDT , Service support , Charges/Coding Visit Charges Inpatient E&M: 41016 Init Hosp L3 Behavior Interventions Behavior Intervention: 41837 Smoking Cessation 3-10 min
--- NOTE | 2021-03-24 11:56 | CASEMGMT ---
Tertiary Facilities in-network with patient's insurance: [facility], [facility], [facility], [facility], [facility], and
--- NOTE | 2021-03-24 12:12 | CON.PCM.CA_ITS ---
Assessment & Plan Assessment/Plan (1) NSTEMI, initial episode of care: PLAN: Due to overall patient's condition I think it will be reasonable to treat this medically. It will be reasonable to continue heparin and beta- alberto. Non-STEMI could be secondary to patient's A. fib with RVR. He could potentially have occlusion of his SVG to posterolateral circumflex. With troponin plateauing early this could be late presentation of acute [place]. However patient is asymptomatic and if this was indeed a late presentation then it will be reasonable to manage this medically. Also patient does not appear to be a Technical Services Manager candidate at this time due to his other chronic and subacute medical conditions and debilitated state. It will be reasonable to start the patient back on aspirin when okay with surgery (2) Atrial fibrillation with rapid ventricular response: PLAN: Heart rate well controlled with Cardizem. Patient does have LV dysfunction. Will be reasonable to switch to amiodarone. When okay with the surgery service as far as perforated diverticulitis is concerned we can start Eliquis. (3) Frequent falls: (4) History of coronary artery bypass graft: (5) Atherosclerosis of coronary artery bypass graft without angina pectoris: QUALIFIERS: [place] vs. transplanted heart: [place] heart Qualified Code(s): I25.810 - Atherosclerosis of coronary artery bypass graft(s) without angina pectoris HPI Consult Data Date of Consult: 03/24/21 HPI Narrative Reason for Consultation: Elevated troponin, atrial fibrillation with rapid ventricular response HPI Narrative: ADRIANNE ALVAREZ, is a 70 M who presents to [facility] after a fall. Patient is a somewhat poor historian. He states that he tripped and fell. He was found lying on the lawn by his neighbors and they called the police. The police felt that patient was not in a condition to take care of himself and so he was brought to the hospital. Patient appears to be oriented but dozes off during my conversation with him. He denies any chest pain, shortness of breath or dizziness. In the ER patient was found to be in A. fib with RVR. His EKG showed borderline ST elevation in lead III and ST depression in V2 and V3. High-sensitivity troponin was around 4000. Patient was not having any chest pain. It was decided not to proceed with emergent coronary angiography. Patient was just discharged on 03/22/2021 after an admission for diverticulitis with perforation. He was on Eliquis for DVT in the past. This was stopped at the time of discharge and he was advised to restart it in 1 week if he continued to improve. He was treated conservatively for the diverticulitis with perforation. He has past medical history of coronary artery disease status post 5 vessel CABG in 2007 (PEARSON to LAD, vein to ramus, left radial artery to obtuse marginal, vein to circumflex, pain to PDA), stent to OM via radial graft in 2008 with 2.2 5X 20 and a 2.25X 12 mm Taxus stent and stent to circumflex with a 2.5X 13 cypher stent, LV dysfunction with an EF of 39% by stress test in 2015 and an echo in 2018 at an outside hospital showing an EF of around 50% with inferior hypokinesis. Cardiac cath in 2008 revealed patent 2 out of 5 bypass grafts with 80 to 90% stenosis in the radial artery graft to the OM which was fixed with a stent as described above. Patient's troponin plateaued at around 4500. Review of systems: This could not be obtained as patient is a poor historian. [facility] Medical History (Updated 03/24/21 @ 01:[address] Grisel Moore MD) Atherosclerosis of coronary artery bypass graft without angina pectoris Atherosclerosis of coronary artery of [place] heart without angina pectoris Gaines's esophagus COPD (chronic obstructive pulmonary disease) Diverticulosis Essential hypertension GERD (gastroesophageal reflux disease) History of DVT (deep vein thrombosis) History of pulmonary embolism Hyperlipidemia Insomnia Palpitations Severe low back pain Vitamin D deficiency Home Medications zolpidem 10 mg PO QHS 05/15/16 [History Last Taken 03/23/21] hydrocodone-acetaminophen 1 tab PO 4X/DAY PRN 09/17/17 [History Last Taken 03/20/21 14:00] apixaban 5 mg PO BID #0 09/18/17 [Rx Last Taken 03/23/21] albuterol sulfate 1.25 mg INHALATION Q4H PRN 01/28/19 [History Last Taken Unknown] alprazolam 0.5 mg tablet 1 mg PO BID tab 01/28/19 [History Last Taken 03/23/21] evolocumab 140 mg/mL subcutaneous pen injector 140 mg SC Q2W 01/28/19 [History Last Taken Unknown] ipratropium 20 mcg-albuterol 100 mcg/actuation mist for inhalation 1 puff INHALATION DAILY 90 Days g 01/28/19 [History Last Taken Unknown] tizanidine 4 mg tablet 4 mg PO TID PRN 01/28/19 [History Last Taken Unknown] atenolol 25 mg tablet 50 mg PO DAILY 01/29/19 [History Last Taken 03/23/21] furosemide 20 mg PO DAILY 03/20/21 [History Last Taken 03/23/21] potassium chloride 10 meq PO DAILY 03/20/21 [History Last Taken 03/23/21] amoxicillin-pot clavulanate 1 tab PO BID 12 Days #24 tab 03/22/21 [Rx Last Taken 03/23/21] ondansetron HCl [Zofran] 4 mg PO Q8H PRN #10 tab 03/22/21 [Rx Last Taken 03/23/21] pantoprazole 40 mg PO DAILY 30 Days #30 tab 03/22/21 [Rx Last Taken 03/23/21] Allergy/AdvReac Type Severity Reaction Status Date / Time cetirizine Allergy Severe chest Verified 03/23/21 23:33 pain, irregular heart beat acyclovir [From Zovirax] Allergy Intermediate GI upset Verified 03/23/21 23:33 Cephalosporins Allergy Intermediate abdominal Verified 03/23/21 23:33 pain Chntmnt-Aam-Hpo Reductase Allergy Intermediate increased Verified 03/23/21 23:33 Inhibitor weakness ciprofloxacin [From Cipro] AdvReac Diarrhea Verified 03/23/21 23:33 doxycycline AdvReac Diarrhea Verified 03/23/21 23:33 Family History Mother Breast cancer Father Colon cancer Cancer prostate Surgical History History of cataract removal with insertion of prosthetic lens History of coronary artery bypass graft Presence of stent in coronary artery Social History Smoking Status: Current some day smoker tobacco type: cigarettes alcohol intake: current alcohol intake frequency: holidays/special occasions only substance use type: does not use caffeine: Yes Type: coffee Number of servings: 1 Physical Exam Const Constitutional Narrative: Drowsy HEENT normocephalic Eyes no scleral icterus Chest inspection of chest normal Resp normal respiratory effort and clear to auscultation bilaterally Cardio Cardio Narrative: Irregularly irregular Extremity no pedal edema Skin no rashes or lesions noted Charges/Coding Visit Charges Inpatient E&M: 82841 Init Hosp L3 Objective Data Vital Signs: Vital Signs Temp Pulse Resp BP Pulse Ox 97.4 F L 99 31 H 104/70 96 03/24/21 12:00 03/24/21 12:00 03/24/21 12:00 03/24/21 12:00 03/24/21 12:00 Oxygen Flow Rate (L/min) 2 Oxygen Delivery Method Nasal Cannula Weight: 179 lb 0.246 oz Body Mass Index (BMI) 28.0 Intake & Output: Intake and Output for Last 24 Hours 03/22/21 03/23/21 03/24/21 23:59 23:59 23:59 Intake Total 733.92 / 733.92 Output Total 500 / 500 Balance 233.92 / 233.92 Lab / Micro Data Result Diagrams: 03/24/21 06:00 03/24/21 06:00 Labs: Laboratory Results - last 24 hr 03/23/21 23:45: WBC 9.1, RBC 5.07, Hgb 14.1, Hct 45.4, MCV 89.5, MCH 27.8, MCHC 31.1 L, RDW Std Deviation 48.2 H, RDW Coeff of Thierno 14.8 H, Plt Count 166, MPV 9.8, Immature Gran % (Auto) 0.600, Neut % (Auto) 86.8 H, Lymph % (Auto) 5.3 L, [place] % (Auto) 6.8, Eos % (Auto) 0.2, Baso % (Auto) 0.3, Absolute Neuts (auto) 7.9 H, Absolute Lymphs (auto) 0.48 L, Nucleated RBC % 0.3, Differential Comment SCANNED 03/23/21 23:45: Sodium 133 L, Potassium 3.8, Chloride 102, Carbon Dioxide 25.0, Anion Gap 6, BUN 18, Creatinine 0.91, Estim Creat Clear Calc 69.61, Est GFR (MDRD) Af Amer 105, Est GFR (MDRD) Non-Af 87, BUN/Creatinine Ratio 19.7, Glucose 97, Calcium 8.5, Total Bilirubin 0.50, AST 133 H, ALT 40, Alkaline Phosphatase 76, Total Protein 6.5, Albumin 2.2 L, Globulin 4.3 H, Albumin/Globulin Ratio 0.5 L 03/23/21 23:45: Troponin I High Sens 4553.9 H* 03/23/21 23:45: B-Natriuretic Peptide 957.2 H 03/23/21 23:50: Ethyl Alcohol 6.0 03/24/21 01:55: Urine Color Yellow, Urine Clarity Cloudy, Urine pH 5.0, Ur Specific [place] 1.015, Urine Protein 100 H, Urine Glucose (UA) Normal, Urine Ketones Negative, Urine Occult Blood 250 H, Urine Nitrite Negative, Urine Bilirubin Negative, Urine Urobilinogen 1 H, Ur Leukocyte Esterase Negative, Urine RBC 5-10 SEEN, Urine WBC 0 SEEN, Ur Squamous Epith Cells 0 SEEN, Ur Transition Epith Cell 0-5 SEEN, Urine Bacteria 1+, Urine Mucus 0 SEEN 03/24/21 02:05: PT 15.2 H, INR 1.3, APTT 26.4 03/24/21 02:05: Sodium 133 L, Potassium 3.6, Chloride 104, Carbon Dioxide 23.0, Anion Gap 6, BUN 16, Creatinine 0.70, Estim Creat Clear Calc 63.35, Est GFR (MDRD) Af Amer 142, Est GFR (MDRD) Non-Af 117, BUN/Creatinine Ratio 22.8 H, Glucose 102, Calcium 8.0 L, Troponin I High Sens 4502.5 H* 03/24/21 06:00: WBC 9.3, RBC 4.63, Hgb 13.1, Hct 41.3, MCV 89.2, MCH 28.3, MCHC 31.7 L, RDW Std Deviation 48.2 H, RDW Coeff of Thierno 14.7 H, Plt Count 147 L, MPV 10.4, Immature Gran % (Auto) 1.000 H, Neut % (Auto) 84.3 H, Lymph % (Auto) 6.7 L , [place] % (Auto) 7.5, Eos % (Auto) 0.3, Baso % (Auto) 0.2, Absolute Neuts (auto) 7.9 H, Absolute Lymphs (auto) 0.62 L, Nucleated RBC % 0.2 03/24/21 06:00: Sodium 137, Potassium 3.6, Chloride 105, Carbon Dioxide 25.0, Anion Gap 7, BUN 15, Creatinine 0.68 L, Estim Creat Clear Calc 63.35, Est GFR (MDRD) Af Amer 147, Est GFR (MDRD) Non-Af 121, BUN/Creatinine Ratio 21.9 H, Glucose 116 H, Calcium 8.4 L 03/24/21 06:00: Troponin I High Sens 3397.6 H* 03/24/21 09:04: APTT 42.3 H Cardiology Labs/Tests 03/23/21 23:45: WBC 9.1, RBC 5.07, Hgb 14.1, Hct 45.4, MCV 89.5, MCH 27.8, MCHC 31.1 L, Plt Count 166, MPV 9.8, Immature Gran % (Auto) 0.600, Neut % (Auto) 86.8 H, Lymph % (Auto) 5.3 L, [place] % (Auto) 6.8, Eos % (Auto) 0.2, Baso % (Auto) 0.3, Absolute Neuts (auto) 7.9 H, Nucleated RBC % 0.3 03/23/21 23:45: Sodium 133 L, Potassium 3.8, Chloride 102, Carbon Dioxide 25.0, Anion Gap 6, BUN 18, Creatinine 0.91, Est GFR (MDRD) Af Amer 105, Est GFR (MDRD) Non-Af 87, BUN/Creatinine Ratio 19.7, Glucose 97, Calcium 8.5, Total Bilirubin 0.50 03/23/21 23:45: B-Natriuretic Peptide 957.2 H 03/24/21 01:55: Urine Color Yellow, Urine Clarity Cloudy, Urine pH 5.0, Ur Specific [place] 1.015, Urine Protein 100 H, Urine Glucose (UA) Normal, Urine Ketones Negative, Urine Occult Blood 250 H, Urine Nitrite Negative, Urine Bilirubin Negative, Urine Urobilinogen 1 H, Ur Leukocyte Esterase Negative, Urine RBC 5-10 SEEN, Urine WBC 0 SEEN 03/24/21 02:05: PT 15.2 H, INR 1.3, APTT 26.4 03/24/21 02:05: Sodium 133 L, Potassium 3.6, Chloride 104, Carbon Dioxide 23.0, Anion Gap 6, BUN 16, Creatinine 0.70, Est GFR (MDRD) Af Amer 142, Est GFR (MDRD) Non-Af 117, BUN/Creatinine Ratio 22.8 H, Glucose 102, Calcium 8.0 L 03/24/21 06:00: WBC 9.3, RBC 4.63, Hgb 13.1, Hct 41.3, MCV 89.2, MCH 28.3, MCHC 31.7 L, Plt Count 147 L, MPV 10.4, Immature Gran % (Auto) 1.000 H, Neut % (Auto) 84.3 H, Lymph % (Auto) 6.7 L, [place] % (Auto) 7.5, Eos % (Auto) 0.3, Baso % (Auto) 0.2, Absolute Neuts (auto) 7.9 H, Nucleated RBC % 0.2 03/24/21 06:00: Sodium 137, Potassium 3.6, Chloride 105, Carbon Dioxide 25.0, Anion Gap 7, BUN 15, Creatinine 0.68 L, Est GFR (MDRD) Af Amer 147, Est GFR (MDRD) Non-Af 121, BUN/Creatinine Ratio 21.9 H, Glucose 116 H, Calcium 8.4 L 03/24/21 09:04: APTT 42.3 H Rhythm: EKG: ECHO: Stress Test: Cardiac Cath: PCI: CT Surgery: Holter monitor: EPS: PPM: CXR: Chest CT Scan: Radiography Diagnostic Testing: Radiology Impression Chest X-Ray 03/24/21 00:00 IMPRESSION: Bilateral basilar atelectasis otherwise no acute process Electronically Signed: Riana Muniz MD at 0:44 EDT , Service support , Brain CT 03/24/21 23:40 IMPRESSION: Chronic changes as described. No acute intracranial hemorrhage or space-occupying lesion. Electronically Signed: Riana Muniz MD at 0:57 EDT , Service support ,
[2021-03-24] MEDS: Ipratropium/Albuterol Sulfate 3 ML AMPUL.NEB INHALATION ×2 (13:08→19:27)
--- NOTE | 2021-03-24 14:35 | CASEMGMT ---
JUAN RAMON ASCENCIO Face to Face with patient for initial transition planning/care coordination assessment. RN CM introduced self and role at [facility]. Patient lying in bed, alert and oriented. Patient willing to participate in assessment and is able to answer all questions appropriately. Care providers, pharmacy, and demographics verified. Patient wishes to discharge home with possible HHC pending progress with therapy. Patient states he has no further needs or concerns at this time. CM to follow for discharge planning needs that may arise. PCP: Edwin Specialists: none, was to follow-up with Indra following hospitalization for diverticulitis Preferred Pharmacy: [facility] Insurance: FANCRU Prescription Benefit: yes Living Will/HPOA: yes, but patient would like to change HPOA, SW updated LNOK: daughter Living Arrangements: Patient lives with daughter in a 1 story home with 2 steps and railing to enter the home. Patient states he is independent at home. Transportation: self, daughter DME/HHC: Patient states he has cane, walker, grab bars, and nebulizer at home. Patient denies previous HHC or SNF. Patient was recently hospitalized 03/20/21-03/22/21 for diverticulitis with perforation. Patient denied needs at discharge. Patient states he fill prescriptions and taking medications as order. Patient's Eliquis was on hold till 03/29 per surgeries recommendations. Patient had yet to schedule follow-up appts with PCP and Dr. Burrell. Patient was found in yard and returned to [facility] 03/23/21 with NSTEMI. Disposition Plan: Patient to discharge home with family support and follow-up plans in place. Will monitor for need for HHC and additional DME. Sadia GOMEZ, RN, CM
[2021-03-24 17:06] LABS: Partial Thromboplast Time 138.3 Seconds (24.1-36.2)
[2021-03-24] MEDS: Lisinopril 2.5 MG Tablet PO (17:29)
[2021-03-24] MEDS: Amiodarone 360 MG in Dextrose 5% Viaflo Bag 192.8 ML 33.3 MG CONT INF (17:29)
[2021-03-24] MEDS: Atenolol 25 MG Tablet PO (17:29)
[2021-03-24] MEDS: 0.9% Saline Lock 10 ML Syringe IV (18:54)
--- NOTE | 2021-03-24 19:41 | PN.HOSP_ITS ---
Subjective Subjective Patient was seen and examined today, he appears lethargic and somnolent, I discussed his care with cardiology today, cardiology does not wish to perform a cardiac catheterization at this time on the patient, they would rather treat the patient medically, patient's heart rate is controlled at this time on IV Cardize m, he still remains in atrial fibrillation. I talked with cardiology about his medications and they recommended changing to amiodarone and stopping his Cardizem drip. Patient was transferred to PCU under stepdown late this afternoon. Patient was also placed on a small dose of lisinopril due to his LV dysfunction, he was also continued on his heparin drip for now at the direction of cardiology. Patient was placed back on a [id number] had been on atenolol previously. Objective Data Objective Data Vital Signs: Vital Signs Temp Pulse Resp BP Pulse Ox 97.8 F 89 18 103/84 H 97 03/24/21 16:00 03/24/21 18:59 03/24/21 18:46 03/24/21 18:59 03/24/21 18:46 Oxygen Flow Rate (L/min) 2 Oxygen Delivery Method Nasal Cannula Weight: 81.2 kg Body Mass Index (BMI) 28.0 Intake & Output: Intake and Output for Last 24 Hours 03/22/21 03/23/21 03/24/21 23:59 23:59 23:59 Intake Total 1246.43 / 1246.43 Output Total 775 / 775 Balance 471.43 / 471.43 Lab / Micro Data Result Diagrams: 03/24/21 06:00 03/24/21 06:00 Labs: Laboratory Results - last 24 hr 03/23/21 23:45: WBC 9.1, RBC 5.07, Hgb 14.1, Hct 45.4, MCV 89.5, MCH 27.8, MCHC 31.1 L, RDW Std Deviation 48.2 H, RDW Coeff of Thierno 14.8 H, Plt Count 166, MPV 9.8, Immature Gran % (Auto) 0.600, Neut % (Auto) 86.8 H, Lymph % (Auto) 5.3 L, [place] % (Auto) 6.8, Eos % (Auto) 0.2, Baso % (Auto) 0.3, Absolute Neuts (auto) 7.9 H, Absolute Lymphs (auto) 0.48 L, Nucleated RBC % 0.3, Differential Comment SCANNED 03/23/21 23:45: Sodium 133 L, Potassium 3.8, Chloride 102, Carbon Dioxide 25.0, Anion Gap 6, BUN 18, Creatinine 0.91, Estim Creat Clear Calc 69.61, Est GFR (MDRD) Af Amer 105, Est GFR (MDRD) Non-Af 87, BUN/Creatinine Ratio 19.7, Glucose 97, Calcium 8.5, Total Bilirubin 0.50, AST 133 H, ALT 40, Alkaline Phosphatase 76, Total Protein 6.5, Albumin 2.2 L, Globulin 4.3 H, Albumin/Globulin Ratio 0.5 L 03/23/21 23:45: Troponin I High Sens 4553.9 H* 03/23/21 23:45: B-Natriuretic Peptide 957.2 H 03/23/21 23:50: Ethyl Alcohol 6.0 03/24/21 01:55: Urine Color Yellow, Urine Clarity Cloudy, Urine pH 5.0, Ur Specific [place] 1.015, Urine Protein 100 H, Urine Glucose (UA) Normal, Urine Ketones Negative, Urine Occult Blood 250 H, Urine Nitrite Negative, Urine Bilirubin Negative, Urine Urobilinogen 1 H, Ur Leukocyte Esterase Negative, Urine RBC 5-10 SEEN, Urine WBC 0 SEEN, Ur Squamous Epith Cells 0 SEEN, Ur Trans ition Epith Cell 0-5 SEEN, Urine Bacteria 1+, Urine Mucus 0 SEEN 03/24/21 02:05: PT 15.2 H, INR 1.3, APTT 26.4 03/24/21 02:05: Sodium 133 L, Potassium 3.6, Chloride 104, Carbon Dioxide 23.0, Anion Gap 6, BUN 16, Creatinine 0.70, Estim Creat Clear Calc 63.35, Est GFR (MDRD) Af Amer 142, Est GFR (MDRD) Non-Af 117, BUN/Creatinine Ratio 22.8 H, Glucose 102, Calcium 8.0 L, Troponin I High Sens 4502.5 H* 03/24/21 06:00: WBC 9.3, RBC 4.63, Hgb 13.1, Hct 41.3, MCV 89.2, MCH 28.3, MCHC 31.7 L, RDW Std Deviation 48.2 H, RDW Coeff of Thierno 14.7 H, Plt Count 147 L, MPV 10.4, Immature Gran % (Auto) 1.000 H, Neut % (Auto) 84.3 H, Lymph % (Auto) 6.7 L , [place] % (Auto) 7.5, Eos % (Auto) 0.3, Baso % (Auto) 0.2, Absolute Neuts (auto) 7.9 H, Absolute Lymphs (auto) 0.62 L, Nucleated RBC % 0.2 03/24/21 06:00: Sodium 137, Potassium 3.6, Chloride 105, Carbon Dioxide 25.0, Anion Gap 7, BUN 15, Creatinine 0.68 L, Estim Creat Clear Calc 63.35, Est GFR (MDRD) Af Amer 147, Est GFR (MDRD) Non-Af 121, BUN/Creatinine Ratio 21.9 H, Glucose 116 H, Calcium 8.4 L 03/24/21 06:00: Troponin I High Sens 3397.6 H* 03/24/21 09:04: APTT 42.3 H 03/24/21 16:45: APTT 138.3 H* Radiography Diagnostic Testing: Radiology Impression Chest X-Ray 03/24/21 00:00 IMPRESSION: Bilateral basilar atelectasis otherwise no acute process Electronically Signed: Riana Muniz MD at 0:44 EDT , Service support , Echocardiogram 03/24/21 02:27 Interpretation Summary The estimated ejection fraction is 40-45 %. Unable to assess diastolic dysfunction. Hypokinesis of the inferior and posterior wall The left atrium is severely enlarged. Trivial mitral valve insufficiency. Trivial tricuspid valve insufficiency. Moderate diffuse aortic valve thickening. Ordering Physician: Koram, Grisel Carmencita Referring Physician: Woo Pineda Performed By: Micki Escoto RDCS Brain CT 03/24/21 23:40 IMPRESSION: Chronic changes as described. No acute intracranial hemorrhage or space-occupying lesion. Electronically Signed: Riana Muniz MD at 0:57 EDT , Service support , Physical Exam Const no apparent distress and healthy appearing General Appearance: cooperative, well kempt and well developed Orientation / Consciousness: awake, oriented to person, oriented to place, oriented to time and lethargic HEENT normocephalic, head/scalp atraumatic and moist oral mucous membranes Head and Scalp: normocephalic Eyes PERRL, EOMs intact bilaterally and conjunctivae normal Neck nuchal rigidity, supple, no JVD, thyroid normal and no carotid bruits General: trachea midline Resp normal respiratory effort, no retractions, no use of accessory muscles and clear to auscultation bilaterally Auscultation: Negative for rales, rhonchi or wheezes Cardio S1 normal heart sound, S2 normal heart sound, no murmurs, no rub and no gallops Cardio Narrative: Heart rate and rhythm was irregular GI normal to inspection, nondistended, normoactive bowel sounds, soft to palpation, non-tender and non-distended Extremity normal to inspection and no clubbing, cyanosis or edema Skin no rashes or lesions noted General Skin Exam: no breakdown Neuro CN's II-XII intact bilaterally, no focal motor deficits and no sensory deficits noted Neuro Narrative: Patient is lethargic and somnolent but he is arousable to p ainful stimulation and verbal stimulation Speech: speech normal Psych thought process normal Psych Narrative: Affect is flat Assessment & Plan Assessment/Plan (1) Atrial fibrillation with rapid ventricular response: PLAN: 1. [id number] is participating in his care, patient is stable for transfer to PCU at this time under stepdown care #2 atrial fibrillation with RVR-patient will be placed on IV amiodarone and transition to oral amiodarone, his Cardizem drip will be stopped, beta-alberto will be started #3 atherosclerotic heart disease #4 ischemic cardiomyopathy #5 recent perforation of sigmoid colon due to diverticulitis-patient will remain on antibiotics Charges/Coding Visit Charges Inpatient E&M: 87757 Subs Hosp L2
[2021-03-24] MEDS: Zolpidem Tartrate 5 MG Tablet PO (21:18)
--- NOTE | 2021-03-24 23:40 | CT_ITS ---
STUDY: CT BRAIN WITHOUT CONTRAST REASON FOR EXAM: Male, 70 years old. fall RADIATION DOSAGE (If Supplied By Facility): CTDIvol = ( 44.99 ) mGy, DLP = ( 880.47 ) mGycm TECHNIQUE: Transaxial CT imaging of the brain was performed without administration of intravenous contrast material. Individualized dose optimization techniques were used for this CT. COMPARISON: No relevant priors. FINDINGS: Normal soft tissue structures. Normal calvarium. There is mild to moderate cerebral atrophy with widening of the extra-axial spaces and ventricular dilatation. There are areas of decreased attenuation within the white matter tracts of the supratentorial brain, consistent with microvascular disease changes. Normal basal ganglia and thalami. Normal brainstem. Normal cerebellum. There is no intracranial hemorrhage. There are no findings of an acute ischemic infarction. Normal visualized paranasal sinuses. CT/Brain/Head without Contrast IMPRESSION: Chronic changes as described. No acute intracranial hemorrhage or space-occupying lesion. Electronically Signed: Riana Muniz MD at 0:57 EDT , Service support ,
[2021-03-24] MEDS: Amiodarone 360 MG in Dextrose 5% Viaflo Bag 192.8 ML 16.7 MG CONT INF (23:42)
[2021-03-25] VITALS (28 sets, daily range): BP systolic 86–123; BP diastolic 58–101; PULSE 84–103; RESP 20–35; TEMP 36.3–37.2; O2SAT 91–100
--- NOTE | 2021-03-25 02:38 | NURSING ---
Called lab to check on PTT that was ordered at 0055, order was missed per photofinishing laboratory worker. Lab up to floor to draw PTT. JUAN RAMON [place].
[2021-03-25 03:30] LABS: Partial Thromboplast Time 32.1 Seconds (24.1-36.2)
[2021-03-25] MEDS: HYDROcodone Bitartrate/Apap 5/325 Tablet PO (03:30)
[2021-03-25] MEDS: HEPARIN/D5w 25,000 UNITS 25,000 UNITS/250 ML IV.SOLN. 10 UNITS IV (03:37)
[2021-03-25] MEDS: Heparin Injection (Vial) 5,000 UNIT/ML VIAL IV ×3 (03:37→17:14)
[2021-03-25] MEDS: Ipratropium/Albuterol Sulfate 3 ML AMPUL.NEB INHALATION ×3 (04:30→19:57)
[2021-03-25] MEDS: Furosemide 40 MG/4 ML Vial IV ×2 (05:24→17:14)
[2021-03-25] MEDS: 0.9% Saline Lock 10 ML Syringe IV ×3 (05:24→18:50)
[2021-03-25] MEDS: Albuterol 2.5 MG/3 ML VIAL.NEB. 1.25 MG INHALATION (07:11)
[2021-03-25 08:42] LABS: BNP,B-Type NATRIURETIC PEPTIDE 700.9 pg/mL (0-100)
[2021-03-25] MEDS: Amox/Clavulanate 875 MG Tablet PO ×2 (09:01→16:39)
[2021-03-25] MEDS: Potassium Chloride Oral Tablet 10 MEQ PO (09:01)
[2021-03-25] MEDS: ALPRAZolam 0.5 MG Tablet 1 MG PO ×2 (09:01→22:41)
[2021-03-25] MEDS: Pantoprazole Sodium 40 MG Tablet PO (09:02)
[2021-03-25] MEDS: Lisinopril 2.5 MG Tablet PO (09:21)
[2021-03-25] MEDS: Atenolol 25 MG Tablet PO (09:21)
[2021-03-25 10:05] LABS: Partial Thromboplast Time 38.7 Seconds (24.1-36.2)
--- NOTE | 2021-03-25 11:10 | CASEMGMT ---
Addendum entered by Esperanza Paul 03/25/21 11:14: SW also spoke with patient about Healthcare Power of Motor Vehicle Technician as per RN CM he wanted to complete these documents. He asked if it is just healthcare and SW said it is only healthcare. He asked if he could do a financial POA and LW. SW told him we do not do those here. SW then asked if he still wants to do the Healthcare POA and he said he did not. Esperanza TORREZ Original Note: SW met with patient. Introduced self as well as role at [facility]. SW spoke with patient about his discharge plan. SW asked if therapy recommends he go somewhere for short term rehab would he be willing to do this. He said possibly. SW told him we can see how he does with therapy today. Esperanza TORREZ
[2021-03-25] MEDS: Amiodarone 360 MG in Dextrose 5% Viaflo Bag 192.8 ML 16.7 MG CONT INF (12:45)
[2021-03-25 17:01] LABS: Partial Thromboplast Time 38.8 Seconds (24.1-36.2)
[2021-03-25] MEDS: Bisacodyl 5 MG Tablet 10 MG PO (18:50)
--- NOTE | 2021-03-25 19:39 | PCM.PN.HOSP ---
Subjective Subjective Patient was seen and examined today, he remains in atrial fibrillation with a well-controlled rate. Patient evidently told social services coordinator this morning that he would consider going to an extended care facility for rehab services, he denied this to this examiner and states he prefers to go home at the time of discharge from the hospital. Objective Data Objective Data Vital Signs: Vital Signs Temp Pulse Resp BP Pulse Ox 97.6 F L 97 23 H 107/85 H 97 03/25/21 19:00 03/25/21 19:00 03/25/21 19:00 03/25/21 19:00 03/25/21 19:00 Oxygen Flow Rate (L/min) 1 Oxygen Delivery Method Nasal Cannula Weight: 81.3 kg Body Mass Index (BMI) 28.0 Intake & Output: Intake and Output for Last 24 Hours 03/23/21 03/24/21 03/25/21 23:59 23:59 23:59 Intake Total 1396.47 / 1801.48 1700.39 / 1700.39 Output Total 775 / 1075 2490 / 2490 Balance 621.47 / 726.48 -789.61 / -789.61 Lab / Micro Data Result Diagrams: 03/24/21 06:00 03/24/21 06:00 Labs: Laboratory Results - last 24 hr 03/25/21 03:12: APTT 32.1 03/25/21 03:12: B-Natriuretic Peptide 700.9 H 03/25/21 09:35: APTT 38.7 H 03/25/21 16:30: APTT 38.8 H Physical Exam Const alert, oriented x3, no apparent distress and healthy appearing General Appearance: cooperative, well kempt and well developed Orientation / Consciousness: awake, oriented to person, oriented to place and oriented to time HEENT normocephalic, head/scalp atraumatic and moist oral mucous membranes Head and Scalp: normocephalic Eyes PERRL, EOMs intact bilaterally and conjunctivae normal Neck nuchal rigidity, supple, no JVD, thyroid normal and no carotid bruits General: trachea midline Resp normal respiratory effort, no retractions, no use of accessory muscles and clear to auscultation bilaterally Auscultation: Negative for rales, rhonchi or wheezes Cardio no murmurs, no rub and no gallops Cardio Narrative: Heart rate and rhythm is irregular GI normal to inspection, nondistended, normoactive bowel sounds, soft to palpation, non-tender and non-distended Extremity no clubbing, cyanosis or edema Skin no rashes or lesions noted General Skin Exam: no breakdown Neuro oriented x3, CN's II-XII intact bilaterally, no focal motor deficits and no sensory deficits noted Sensorium / Orientation: awake and alert Speech: speech normal Psych thought process normal and affect normal Assessment & Plan Assessment/Plan (1) Atrial fibrillation with rapid ventricular response: PLAN: 1. [id number] is participating in his care, patient was transitioned over to oral amiodarone #2 atrial fibrillation with RVR-rate appears to be controlled at this time #3 atherosclerotic heart disease #4 ischemic cardiomyopathy #5 recent perforation of sigmoid colon due to diverticulitis-patient will remain on antibiotics Charges/Coding Visit Charges Inpatient E&M: 80833 Subs Hosp L2
[2021-03-25] MEDS: Lactulose 20 GM/30 ML UDC PO (20:25)
[2021-03-25] MEDS: Zolpidem Tartrate 5 MG Tablet PO (22:41)
[2021-03-25] MEDS: Amiodarone 200 MG Tablet PO (22:44)
[2021-03-25] MEDS: HEPARIN/D5w 25,000 UNITS 25,000 UNITS/250 ML IV.SOLN. 14 UNITS IV (23:33)
[2021-03-25 23:52] LABS: Partial Thromboplast Time 45.9 Seconds (24.1-36.2)
[2021-03-26] VITALS (9 sets, daily range): BP systolic 92–123; BP diastolic 64–97; PULSE 62–110; RESP 16–28; TEMP 36.1–37.1; O2SAT 92–99
--- NOTE | 2021-03-26 00:50 | NURSING ---
Piute patients bed alarm, entered room and found pt on floor, 3 siderails were up. Pt stated he wanted to call a cab to go home -he wants to see his girlfriend. Vital signs were obtained, Pt was assisted back to bed with lift mat, gauze was applied to 2 skin tears one on left hand and left elbow. Josie Cortez CNP was notified, came to room. Ordered a head CT and neuro assessments.
--- NOTE | 2021-03-26 00:59 | CT_ITS ---
STUDY: CT BRAIN WITHOUT CONTRAST REASON FOR EXAM: Male, 70 years old. Fall, on heparin gtt RADIATION DOSAGE (If Supplied By Facility): CTDIvol = ( 44.99 ) mGy, DLP = ( 829.85 ) mGycm TECHNIQUE: Transaxial CT imaging of the brain was performed without administration of intravenous contrast material. Individualized dose optimization techniques were used for this CT. COMPARISON: 03/24/2021. FINDINGS: Normal soft tissue structures. Normal calvarium. There is mild to moderate cerebral atrophy with widening of the extra-axial spaces and ventricular dilatation. There are areas of decreased attenuation within the white matter tracts of the supratentorial brain, consistent with mild microvascular disease changes. Normal basal ganglia and thalami. Normal brainstem. Normal cerebellum. There is no intracranial hemorrhage. There are no findings of an acute ischemic infarction. Normal visualized paranasal sinuses. CT/Brain/Head without Contrast IMPRESSION: Chronic changes as described. No acute intracranial hemorrhage or space-occupying lesion. Electronically Signed: Riana Muniz MD at 1:43 EDT , Service support ,
--- NOTE | 2021-03-26 01:01 | PCM.PN.BLA ---
Progress Note Called to bedside by Sunny DELATORRE with reports that patient fell. Concern due to patient being on heparin drip and patient reports that he hit his head when he fell. Patient's bed alarm was on and alarmed however upon staff arrival to room patient was already on the floor. Physical Exam Const alert and oriented x3 HEENT normocephalic and head/scalp atraumatic Eyes PERRL, conjunctivae normal and no scleral icterus General Eye: normal light reflex Neck full ROM and supple Resp normal respiratory effort, normal air movement and clear to auscultation bilaterally Cardio regular rate, regular rhythm, S1 normal heart sound and S2 normal heart sound GI normal to inspection, nondistended, normoactive bowel sounds, soft to palpation and non-tender Extremity normal to inspection, full ROM, normal capillary refill and no clubbing, cyanosis or edema Skin no rashes or lesions noted, no wounds, skin turgor normal and no jaundice Neuro oriented x3, moves all extremities, no focal motor deficits and no sensory deficits noted Psych mental status grossly normal, thought process normal, cooperative, affect normal and speech normal Assessment & Plan Assessment/Plan (1) Fall: QUALIFIERS: Encounter type: initial encounter Qualified Code(s): W19.XXXA - Unspecified fall, initial encounter PLAN: Patient seen and assessed, no obvious deformity or laceration noted. Patient is alert and oriented and able to follow all commands. Due to patient reporting that he hit his head and that he has been on a heparin drip for [address] and order neuro checks every hour x4 every 2 hours x2.
--- NOTE | 2021-03-26 02:07 | NURSING ---
UPDATED PT'S DAUGHTER REGARDING PT'S FALL
[2021-03-26 02:46] LABS: Bedside Glucose 117 mg/dL (70-110)
--- NOTE | 2021-03-26 07:46 | NURSING ---
Addendum entered by Esme Ascencio 03/26/21 07:46: Time should be at 0150 this am Original Note: Josie Cortez called states she saw the result of the CT scan no new orders received.
[2021-03-26 07:58] LABS: Partial Thromboplast Time 44.8 Seconds (24.1-36.2)
--- NOTE | 2021-03-26 08:00 | NURSING ---
PT REFUSING AM MEDS. STATES HE DOESN'T TRUST THIS HOSPITAL AND WILL SPEAK TO HIS PRIMARY CARE EDUCATED ON IMPORTANCE OF MEDS. PT CONTINUES TO REFUSE. BECOMING MORE AGITATED WITH CARE. STATES HE IS GOING HOME. PT ASKING WHERE HIS DAUGHTER IS. STATES SHE WENT TO GET HIM BREAKFAST BUT HASN'T RETURNED. EMOTIONAL SUPPORT GIVEN-PT REFUSING EMOTIONAL SUPPORT. WILL CONTINUE TO MONITOR.
--- NOTE | 2021-03-26 09:42 | CASEMGMT ---
SW went to talk with patient. He was curled up in his bed. He was not covered completely and did not appear to care. He wanted to know where his food and daughter went. PAMELLA told him SW will find out. SW called his daughter and left a voice mail. SW went back to his room and therapy had him up. SW let him know SW called his daughter. Therapy then came out and said his daughter is in the room. SW went to the room. Patient and his daughter were bickering back and forth. He was complaining that the food she brought him was cold. The coffee was cold. SW then spoke with his daughter outside of the room. She said he will hit people. She said she cannot handle him. She doesn't know if he is going to let the girlfriend stay at his home. He can't be by himself right now. SW asked the physician to come and talk with her. He spoke with patient and his daughter. Patient's daughter said she cannot care for him and she left. Patient told physician he would go somewhere for rehab. However, he needs pre-cert. PAMELLA is not sure patient will stay to wait on insurance as it would likely not be until Monday. Patient has become more agitated while here. He wants to leave. He is acting like he is smoking with nothing in his hand. (Per cured meats supervisor) RN told SW patient keeps calling his girlfriend and she wants to know if SW can call her. PAMELLA called patient's girlfriend and explained that the hospital's recommendation is to go somewhere for short term rehab. He agreed to this, but he will not stay and wait on insurance to authorize him. She said she is willing to try and care for him. She will come in to the hospital. PAMELLA tried to call patient's daughter to explain about girlfriend, but she did not answer so SW left a voice mail. PAMELLA then went to patient's room. PAMELLA asked him about going somewhere for short term rehab and he said he would as long as he doesn't have to stay here. PAMELLA told him he would have to stay here until his insurance approves him. He said he won't stay here and wait. PAMELLA told him we are concerned about him going home as he is unsteady on his feet. PAMELLA brought up his fall last night. He said he had pain meds and sleeping pill coming, but he never got it. He then said, They were hooping and hollering it up downstairs, so they must have gotten it. SW asked him what he means downstairs and he said, Wherever they are. They were slamming doors and yelling. SW then left the room. PAMELLA consulted with patient's RN and physician and SW is going to have [facility] to see patient to evaluate for [facility]. PAMELLA called [facility] and spoke with [facility]. She said they will be in to see him. The therapist is currently at [facility] seeing someone. Information was faxed to [facility]. Esperanza Paul CLINIC OFFICE COORDINATOR LORE
--- NOTE | 2021-03-26 11:30 | NURSING ---
PT CONTINUING TO INSIST ON GOING HOME. GIRLFRIEND IS PRESENT. STATES SHE IS WILLING TO TAKE PT HOME, BUT ALSO VOICING CONCERNS ABOUT PT'S HEALTH. PT INFORMED THAT DR DELCID SAID PT CAN SIGN OUT AMA (REVIEWED POTENTIAL CONSEQUENCES OF LEAVING AMA) OR HE COULD WAIT UNTIL 1/1:30PM TO GET DC INSTRUCTIONS AND NEW RX. PT REFUSING TO WAIT. STATES HE WILL SPEAK TO HIS PCP ABOUT MEDS, STATES HE DOSE NOT WANT MEDS FROM [facility]. PT LEFT AMA VIA WHEELCHAIR WITH GIRLFRIEND
--- NOTE | 2021-03-26 11:43 | CASEMGMT ---
Patient is insistent on leaving the hospital. He will not wait for the doctor to put in the d/c information. His girlfriend is here and will take him home. She is concerned with patient's condition, but is willing to take him home. PAMELLA is also concerned with patient leaving AMA. He does not appear to be thinking clearly and SW is also concerned about his daughter's statement that he will hit people. He is impulsive and can be verbally abusive. RN and PAMELLA went to patient's room and gave him 2 options of leaving AMA where he won't get new medications that are needed or wait until after lunch and get d/c instructions as well prescriptions. Patient chose to leave AMA and his girlfriend will take him. PAMELLA and RN told her if she feels concerned for her safety or his safety to call 911. PAMELLA called [facility] Services and left a message with Alan requesting a return call for a referral. PAMELLA also called [facility] with crisis and left her a message requesting a return call. Esperanza Paul COMMUNICATION EQUIPMENT MECHANIC LORE
--- NOTE | 2021-03-27 15:38 | DS.PCM_ITS ---
Providers Date of Admission: 03/24/21 Primary Care Physician: Dr. Woo Pineda MD Consultations 03/24/21 02:27 Consult: Cardiology Routine Consulting Provider: Liam Polanco Reason for Consult: afib with rvr, nstemi/stemi EMERGENT Consult: No Notified: Yes Date Notified: 03/24/21 Time Notified: 02:03 Method of Notification: Text Consult: Advisory Software Engineer / Pulmonary Medicine Routine Consulting Provider: Pulmonary Medicine unique [place] Reason for Consult: afib with rvr EMERGENT Consult: No Notified: Yes Date Notified: 03/24/21 Time Notified: 02:04 Method of Notification: Text Reason For Visit: NON STEMI, AFIB WITH RVR Diagnosis Discharge Diagnosis (1) Fall: Status: Acute Code(s): W19.XXXA - Unspecified fall, initial encounter Qualifiers: Encounter type: initial encounter Qualified Code(s): W19.XXXA - Unspecified fall, initial encounter Plan: Assessment: 1. Non-STEMI #2 atrial fibrillation with RVR #3 atherosclerotic heart disease #4 ischemic cardiomyopathy #5 recent perforation of sigmoid colon due to diverticulitis #6 medical noncompliance #7 unspecified personality disorder #8 mild pulmonary hypertension Medications at Discharge Home Medications zolpidem 10 mg PO QHS 05/15/16 hydrocodone-acetaminophen 1 tab PO 4X/DAY PRN 09/17/17 apixaban 5 mg PO BID #0 09/18/17 albuterol sulfate 1.25 mg INHALATION Q4H PRN 01/28/19 alprazolam 0.5 mg tablet 1 mg PO BID tab 01/28/19 evolocumab 140 mg/mL subcutaneous pen injector 140 mg SC Q2W 01/28/19 ipratropium 20 mcg-albuterol 100 mcg/actuation mist for inhalation 1 puff INHALATION DAILY 90 Days g 01/28/19 tizanidine 4 mg tablet 4 mg PO TID PRN 01/28/19 atenolol 25 mg tablet 50 mg PO DAILY 01/29/19 furosemide 20 mg PO DAILY 03/20/21 potassium chloride 10 meq PO DAILY 03/20/21 amoxicillin-pot clavulanate 1 tab PO BID 12 Days #24 tab 03/22/21 ondansetron HCl [Zofran] 4 mg PO Q8H PRN #10 tab 03/22/21 pantoprazole 40 mg PO DAILY 30 Days #30 tab 03/22/21 Hospital Course Procedures 2-D Echocardiogram Summary of Care Provided Minutes Spent on Discharge: 32 Hospital Course: This 70-year-old white female was brought in by squad after roshan irahetavargas were notified by neighbors that he was lying outside on his lawn. Please were concerned about his inability to take care of himself, he had been recently discharged from the hospital after being treated for perforated diverticula of the colon. Work-up in the emergency room included an EKG which showed atrial fib with RVR, patient was given IV Cardizem and aspirin, heart rate improved to 100, repeat EKG shows ST depression in V2 and V3 with mild elevation in leads III. The on-call metal door assembler was contacted and since the patient was not having any chest pain, it was decided that he would not go emergently to the Application Support. Patient's troponin was elevated at 4553, he was admitted to ICU, he was seen in consultation by critical care and cardiology, cardiology felt that the patient would be too high risk to undergo cardiac catheterization, cardiology recommended medical treatment only. Patient's cardiac medications were adjusted by cardiology. Patient was transferred to PCU for further care, he was seen in consultation by PT and OT, patient was weak and multiple discussions were carried out with him about going to an extended care facility for short-term rehab, patient first consented, then declined, and then became agitated the next day when it was brought up again and decided that he would consider a [facility] only if his own PCP was to take care of him there. Patient's family came in (his daughter) and due to the argumentative nature of the patient, she could not talk with him. On 03/26/2021, patient was seen and examined: On examination he appeared older than his stated age. Vital signs as documented. Skin warm and dry and without overt rashes. Neck without JVD, neck was supple, trachea midline, thyroid was normal. Lungs clear bilaterally, normal air movement was noted. Heart exam notable for irregular rhythm, normal sounds and absence of murmurs, rubs or gallops. Abdomen unremarkable and without evidence of organomegaly, masses, or abdominal aortic enlargement. Bowel sounds are present, abdomen is not distended. Extremities nonedematous, no cyanosis was noted, no clubbing was noted. Neuro: Cranial nerves II through XII are grossly intact, no focal motor deficits were noted, sensation to light touch and pinprick intact, motor exam 5/5 throughout. Psych: Patient is alert and oriented x3, patient appears to exhibit mild to moderate agitation but answers questions appropriately. In the early afternoon of 03/26/2021, patient's roommate came into the hospital and talked with the patient, patient decided at that point that he wanted to be discharged, I told him that he would be discharged AGAINST MEDICAL ADVICE and would not have any prescriptions given to him, patient decided to sign out AMA anyway and went home. His condition at the time of discharge was stable, long-term prognosis was indeterminate due to the fact the patient is noncompliant with medical regimen and is debilitated. Weight / BMI Weight Weight: 77.5 kg Body Mass Index (BMI) 28.0 ABG / Lab / Microbiology Data Result Diagrams: 03/24/21 06:00 03/24/21 06:00 Meaningful Use Info Meaningful Use Diagnoses (Choose all that apply): AMI AMI/Post PCI/Angioplasty Aspirin given w/in 24hrs of arrival?: Yes ASA at discharge?: No Reason ASA not ordered:: Allergy (Patient signed out AMA) Antiplatelet Therapy at Discharge:: No Reason Antiplatelet Therapy not ordered:: Allergy (Patient signed out AMA) Statins at discharge?: No Reason statins not ordered:: Allergy (Patient signed out AMA) Etienne/ARB at discharge?: No Reason Etienne/ARB not ordered:: Allergy (Patient signed out AMA) Beta Gabby at discharge?: No Reason Beta Gabby not ordered:: Allergy (Patient signed out AMA) Done w/ Acute [place] measure.: Yes Documented LVEF (%): 45 Discharge Plan Admission Admit Date/Time: 03/24/21 01:45 Attending Provider: Darrian Blevins Primary Care Provider: Woo Pineda Consulting Providers: Liam Polanco ; Cliff Natarajan ; Michael Ann ; Sonja Amador WINDOWS SUPPORT ENGINEER Instructions Additional Instructions / Restrictions: Patient Problems: Altered Health Status related to Hospitalization Patient Goals: *Optimal Level of Health *Keep Appointments *Medication Compliance *Remain Safe Discharge Orders/Prescriptions Prescriptions: No Action atenolol 25 mg tablet 50 mg PO DAILY RF: 0 tizanidine 4 mg tablet 4 mg PO TID PRN (Reason: Spasms) RF: 0 ipratropium-albuterol 20-100 mcg/actuation mist 1 puff INHALATION DAILY 90 Days RF: 0 albuterol sulfate 2.5 mg /3 mL (0.083 %) solution for nebulization 1.25 mg INHALATION Q4H PRN (Reason: Shortness Of Breath) RF: 0 Repatha SureClick 140 mg/mL pen injector 140 mg SC Q2W RF: 0 zolpidem 10 MG tablet 10 mg PO QHS RF: 0 hydrocodone-acetaminophen 1 EACH tablet 1 tab PO 4X/DAY PRN (Reason: Pain) RF: 0 apixaban 5 MG tablet 5 mg PO BID Qty: 0 RF: 0 Hold Instructions: Resume on 03/29/21. May resume in 1 week per surgery recommendation. alprazolam 0.5 mg tablet 1 mg PO BID RF: 0 potassium chloride 10 mEq Capsule, Extended Release 10 meq PO DAILY RF: 0 furosemide 20 mg Tablet 20 mg PO DAILY RF: 0 pantoprazole 40 mg Tablet,Delayed Release (Dr/Ec) 40 mg PO DAILY 30 Days Qty: 30 RF: 0 amoxicillin-pot clavulanate 875-125 mg Tablet 1 tab PO BID 12 Days Qty: 24 RF: 0 ondansetron HCl [Zofran] 4 mg tablet 4 mg PO Q8H PRN (Reason: nausea and vomiting) Qty: 10 RF: 0 Referrals / Follow Up: Woo Pineda MD [Primary Care Provider] - Disposition Disposition (needs filled in before D/C Order can be placed): Against Medical Advice Charges/Coding Visit Charges Inpatient E&M: 10062 [facility]
--- NOTE | 2021-03-29 14:04 | CASEMGMT ---
RN CM Discharge Follow-up Phone Call: RAJESH: Brandon Strata: 3 Call Date: 03/29/21 Discharge Date: 03/26/21 Time of Call: 1400 Duration: 1 min Admitting Diagnosis: NSTEMI, Afib with RVR RN SILVA attempted to complete follow-up phone call after recent hospitalization. Patient had left AMA from [facility]. No answer and per voicemail did not want message left.
== END 2021-03-26 11:46 | disposition left against medical advice (07) | DRG 281 ==
LOC: ED 03-24 01:34 → ICU 03-24 01:49 → PCU 03-25 01:10 → ICU 03-25 14:57 → PCU 03-25 14:58
PROVIDERS: Admitting Provider Student in an Organized Health Care Education/Training Program; Emergency Provider Emergency Medicine; PCP Family Medicine; Visit Provider Internal Medicine
DX: I21.4 Non-ST elevation (NSTEMI) myocardial infarction (principal); K57.20 Diverticulitis of large intestine with perforation and abscess without bleeding; I25.810 Atherosclerosis of coronary artery bypass graft(s) without angina pectoris; I48.91 Unspecified atrial fibrillation; I25.5 Ischemic cardiomyopathy; F60.9 Personality disorder, unspecified; I27.20 Pulmonary hypertension, unspecified; F17.210 Nicotine dependence, cigarettes, uncomplicated; I10 Essential (primary) hypertension; E78.5 Hyperlipidemia, unspecified; K21.9 Gastro-esophageal reflux disease without esophagitis; J44.9 Chronic obstructive pulmonary disease, unspecified; R29.6 Repeated falls; W19.XXXA Unspecified fall, initial encounter; Z91.81 History of falling; Y92.230 Patient room in hospital as the place of occurrence of the external cause; Z95.1 Presence of aortocoronary bypass graft; Z91.19 Patient's noncompliance with other medical treatment and regimen; Z53.29 Procedure and treatment not carried out because of patient's decision for other reasons; Z95.5 Presence of coronary angioplasty implant and graft; Z79.01 Long term (current) use of anticoagulants; Z79.899 Other long term (current) drug therapy; Z86.711 Personal history of pulmonary embolism; Z86.718 Personal history of other venous thrombosis and embolism
CPT/HCPCS: 36415; 70450; 71045; 80048; 80053; 81001; 82077; 82962; 83880; 84484; 85025; 85610; 85730; 93005; 93306; 94640; 97110; 97162; 97166; 97530; 97535; 99285; 99406; A4216; J1940

== ENCOUNTER 2021-04-06 12:51 | Inpatient (IN) | payer MEDICARE, SELFPAY ==
[2021-03-24 02:27] VITALS: BMI 28.0
[2021-04-06] VITALS (8 sets, daily range): BP systolic 101–113; BP diastolic 62–91; PULSE 96–118; RESP 16–31; TEMP 36.4–36.9; O2SAT 92–96; BMI 26.6
--- NOTE | 2021-04-06 13:22 | EKG12_ITS ---
Test Reason : WEAKNESS Blood Pressure : / mmHG Vent. Rate : 110 BPM Atrial Rate : 100 BPM P-R Int : 000 ms QRS Dur : 122 ms QT Int : 388 ms P-R-T Axes : 000 046 071 degrees QTc Int : 525 ms Atrial fibrillation with rapid ventricular response Inferior infarct , age undetermined Nonspecific ST and T wave abnormality Abnormal ECG Confirmed by CARTER DURAND, ANDRESSA ([id number]), managing editor YARON BOYCE ([id number]) on 04/08/2021 9:56:57 AM Referred By: TERESA Confirmed By:ANDRESSA MACHADO MD
--- NOTE | 2021-04-06 13:31 | CT_ITS ---
STUDY: CT ABDOMEN AND PELVIS WITH CONTRAST REASON FOR EXAM: Male, 70 years old. Left rib pain following a fall. Weakness. Abdominal pain. RADIATION DOSAGE (If Supplied By Facility): CTDIvol = ( 20.27 ) mGy, DLP = ( 1316.75 ) mGycm TECHNIQUE: Transaxial images were obtained from the dome of the diaphragm to the symphysis pubis without oral contrast. IV 100mL Isovue-370 was administered. Sagittal and coronal images were reconstructed. Individualized dose optimization techniques were used for this CT. COMPARISON: Comparison is made with prior study dated 03/20/2021. FINDINGS: Mild degree of increased markings in the posterior aspect of the lingular segment of the left upper lobe suggestive of atelectasis. Coronary artery calcification. Normal liver. There are multiple small gallstones. Normal spleen. Normal pancreas. Normal bilateral adrenal glands. Normal right kidney. Normal left kidney. Normal visualized stomach. Normal small intestine. There is sigmoid diverticulosis, with thickening of the colon wall, and pericolonic inflammation changes consistent with acute diverticulitis. There is a 4.8 cm x 4.5 cm encapsulated fluid collection in the cul-de-sac with air within it. This may represent an abscess collection secondary to diverticulitis. The appendix is visualized and appears normal. There is diffuse atherosclerotic calcification of the abdominal aorta and its major visceral branches. There is aneurysmal dilatation of the distal abdominal aorta measuring 3.3 cm. Mural thrombus is seen. Normal inferior vena cava. Normal retroperitoneum. Bilateral calcification of the vas deferens. Normal abdominal wall. There are diffuse degenerative changes of the visualized lumbar spine. Loss of the superior endplate of the L4 vertebrae. Osteoarthritis of the hip joints bilaterally. CT/Abdomen/Pelvis W IV Cont ONLY IMPRESSION: Findings in keeping with acute sigmoid diverticulitis and fluid collection in the pelvis suggestive of abscess formation. Multiple gallstones. Electronically Signed: Tony Jose MD at 15:05 EDT , Service support ,
--- NOTE | 2021-04-06 13:31 | CT_ITS ---
STUDY: CT BRAIN WITHOUT CONTRAST REASON FOR EXAM: Male, 70 years old. Head injury RADIATION DOSAGE (If Supplied By Facility): CTDIvol = ( 44.99 ) mGy, DLP = ( 796.11 ) mGycm TECHNIQUE: Transaxial CT imaging of the brain was performed without administration of intravenous contrast material. Individualized dose optimization techniques were used for this CT. COMPARISON: Comparison is made with prior study dated 03/26/2021. FINDINGS: Normal soft tissue structures. Normal calvarium. There is mild cerebral atrophy with widening of the extra-axial spaces and ventricular dilatation. There are areas of decreased attenuation within the white matter tracts of the supratentorial brain, consistent with microvascular disease changes. Normal basal ganglia and thalami. Normal brainstem. Normal cerebellum. There is no intracranial hemorrhage. There are no findings of an acute ischemic infarction. Normal visualized paranasal sinuses. CT/Brain/Head without Contrast IMPRESSION: Chronic involutional changes of the brain. Electronically Signed: Tony Jose MD at 14:57 EDT , Service support ,
--- NOTE | 2021-04-06 13:35 | EX.ED.DYSGE1 ---
HPI History of Present Illness Chief Complaint: Weakness Narrative Narrative: 70-year-old male presenting with generalized weakness for about 3 months. He states he does have history of falls and does believe he hit his head. Patient is a poor informant. He states he was just at [place] and stated that he did not like it there. He signed out AMA after being treated for diverticulitis and NSTEMI. [facility] Medical History (Updated 03/30/21 @ 00:00 by Background Datra) Atherosclerosis of coronary artery bypass graft without angina pectoris Atherosclerosis of coronary artery of [place] heart without angina pectoris Gaines's esophagus COPD (chronic obstructive pulmonary disease) Diverticulosis Essential hypertension GERD (gastroesophageal reflux disease) History of DVT (deep vein thrombosis) History of pulmonary embolism Hyperlipidemia Insomnia Palpitations Perforation of sigmoid colon due to diverticulitis Severe low back pain Vitamin D deficiency Home Medications zolpidem 10 mg PO QHS 05/15/16 [History Last Taken 04/05/21] hydrocodone-acetaminophen 1 tab PO 4X/DAY PRN 09/17/17 [History Last Taken 04/05/21] apixaban 5 mg PO BID #0 09/18/17 [Rx Last Taken 04/06/21] albuterol sulfate 1.25 mg INHALATION Q4H PRN 01/28/19 [History Last Taken Unknown] evolocumab 140 mg/mL subcutaneous pen injector 140 mg SC Q2W 01/28/19 [History Last Taken 03/09/21] ipratropium 20 mcg-albuterol 100 mcg/actuation mist for inhalation 1 puff INHALATION DAILY 90 Days g 01/28/19 [History Last Taken Unknown] tizanidine 4 mg tablet 4 mg PO TID PRN 01/28/19 [History Last Taken Unknown] furosemide 20 mg PO DAILY 03/20/21 [History Last Taken 04/06/21] potassium chloride 10 meq PO DAILY 03/20/21 [History Last Taken 03/23/21] amoxicillin-pot clavulanate 1 tab PO BID 12 Days #24 tab 03/22/21 [Rx Last Taken 04/06/21] ondansetron HCl [Zofran] 4 mg PO Q8H PRN #10 tab 03/22/21 [Rx Last Taken 03/23/21] pantoprazole 40 mg PO DAILY 30 Days #30 tab 03/22/21 [Rx Last Taken 04/05/21] alprazolam 1 mg PO BID 04/06/21 [History Last Taken 04/06/21] atenolol 50 mg PO DAILY 04/06/21 [History Last Taken Unknown] propranolol 10 mg PO TID 04/06/21 [History Last Taken 04/05/21] Allergy/AdvReac Type Severity Reaction Status Date / Time cetirizine Allergy Severe chest Verified 04/06/21 12:57 pain, irregular heart beat acyclovir [From Zovirax] Allergy Intermediate GI upset Verified 04/06/21 12:57 Cephalosporins Allergy Intermediate abdominal Verified 04/06/21 12:57 pain Uhuvnha-Qut-Zvg Reductase Allergy Intermediate increased Verified 04/06/21 12:57 Inhibitor weakness ciprofloxacin [From Cipro] AdvReac Diarrhea Verified 04/06/21 12:57 doxycycline AdvReac Diarrhea Verified 04/06/21 12:57 Family History Mother Breast cancer Father Colon cancer Cancer prostate Surgical History History of cataract removal with insertion of prosthetic lens History of coronary artery bypass graft Presence of stent in coronary artery Social History Smoking Status: Current some day smoker tobacco type: cigarettes alcohol intake: current alcohol intake frequency: holidays/special occasions only substance use type: does not use caffeine: Yes Type: coffee Number of servings: 1 ROS ROS ED Constitutional Constitutional ED: Reports other Details: Generalized weakness ; Denies chills, fever(s) or sweats Eyes Eyes: Denies blurry vision or change in vision ENT ENT ED: Denies ear pain, rhinorrhea or sore throat Cardiovascular Cardiovascular: Denies chest pain, palpitations or racing heartbeat Respiratory/Chest Respiratory/Chest: Reports cough and dyspnea; Denies sputum Gastrointestinal Gastrointestinal: Reports abdominal pain; Denies constipation, diarrhea or vomiting Genitourinary Genitourinary ED: Denies dysuria, hematuria or urinary frequency Musculoskeletal Musculoskeletal: Denies arthralgias, myalgias or neck pain Integumentary Denies abscess, Abrasions or rash Neurologic Neurologic: Denies headache(s), paresthesias or weakness Psychiatric Psychiatric: Denies anxiety, depression, suicidal ideation or suicidal thoughts Endocrine Endocrinology: Denies polydipsia or polyuria EXAM Physical Exam Const Vital Signs: 04/06/21 12:52 04/06/21 13:14 04/06/21 15:03 Temperature 98.5 F 98.3 F Temperature Source Temporal Temporal Pulse Rate 114 H 96 118 H Respiratory Rate 16 31 H 19 H Respiratory Effort Normal Respiratory Pattern Normal Blood Pressure 107/62 113/79 111/91 H Blood Pressure Mean 77 90 97 Pulse Ox 96 95 96 Oxygen Delivery Method Room Air Room Air Room Air Positive unkempt General Appearance ED: unkempt and NAD; Negative for pallor HEENT Reports moist mucous membranes Negative for trauma Eyes PERRL and EOMs intact bilaterally General Eye ED: Negative for scleral icterus Resp normal respiratory effort and clear to auscultation bilaterally Cardio regular rate and regular rhythm GI GI Narrative: Generalized tenderness to palpation with more tenderness in the left lower quadrant midline in the lower abdomen. Extremity normal to inspection General Extremety ED: Negative for tenderness Neuro CN's II-XII intact bilaterally Sensorium / Orientation: alert Psych Appearance: unkempt Skin General Skin Exam: Negative for jaundice or pallor MDM MDM MDM Narrative Medical decision making narrative: Patient presenting with generalized weakness, fatigue, stating that he was falling at home due to weakness. Patient is on Eliquis with history of A. fib. EKG shows A. fib at 110 bpm and does appear to show ST depression in leads V2 through V6 as well as lead I on my interpretation. Patient is not complaining of chest pain. Patient does have extensive cardiac history and it does appear as if he signed out AMA from [facility] and then again signed out AMA from [facility] 2 days ago. From reading his physicians notes it does appear that they were going to attempt a cardiac catheterization after stabilizing him from his diverticulitis. Apparently he went into volume overload and had some CHF given the amount of fluids he was given and had to be put on BiPAP in the MICU. Patient's lab work today shows he is a leukocytosis of 13.9 his hemoglobin is 14.3, hematocrit 46.5, platelets 380. Electrolytes are normal. BUN/creatinine is 28/1.14 GFR of 81. Lactic acid 1.5. Urinalysis negative for infection. High-sensitivity troponin is 319.9. This appears to be last checked at [facility] on 03/30/2021 and was 306. It does appear as if they use a high-sensitivity troponin. Patient's chest x-ray on my interpretation shows cardiomegaly without acute CHF. There are no infiltrates. CT brain is negative for acute findings. CT of the abdomen pelvis shows diverticulitis with what appears to be new abscess. This was discussed with Dr. Robertson and likely needs IR drain placed. Patient does meet SIRS criteria and does have a source with the diverticulitis. He was treated with meropenem after speaking with the hospitalist. Patient was given IV fluids as well as Cardizem to improve his heart rate. I did not give him aggressive fluids given his recent volume overload. Impression: 1. Sepsis 2. Diverticulitis with abscess 3. NSTEMI 4. Generalized weakness 5. A. fib with RVR Lab Data Attestation: I reviewed the patient's lab results. Labs: Laboratory Results - last 24 hr 04/06/21 04/06/21 04/06/21 13:20 13:20 14:37 WBC 13.9 H RBC 5.19 Hgb 14.3 Hct 46.5 MCV 89.6 MCH 27.6 MCHC 30.8 L RDW Std Deviation 51.7 H RDW Coeff of Thierno 15.8 H Plt Count 380 MPV 10.4 Immature Gran % (Auto) 1.100 H Neut % (Auto) 84.9 H Lymph % (Auto) 7.1 L [place] % (Auto) 6.5 Eos % (Auto) 0.1 Baso % (Auto) 0.3 Absolute Neuts (auto) 11.8 H Absolute Lymphs (auto) 0.99 Nucleated RBC % 0 Sodium 136 Potassium 3.9 Chloride 100 Carbon Dioxide 28.0 Anion Gap 8 BUN 28 H Creatinine 1.14 Estim Creat Clear Calc 51.70 Est GFR (MDRD) Af Amer 81 Est GFR (MDRD) Non-Af 67 BUN/Creatinine Ratio 24.6 H Glucose 110 H Lactic Acid Cancelled Calcium 8.6 Total Bilirubin 0.60 AST 33 ALT 47 Alkaline Phosphatase 72 Troponin I High Sens 319.9 H* Total Protein 6.9 Albumin 2.5 L Globulin 4.4 H Albumin/Globulin Ratio 0.6 L Urine Color Urine Clarity Urine pH Ur Specific [place] Urine Protein Urine Glucose (UA) Urine Ketones Urine Occult Blood Urine Nitrite Urine Bilirubin Urine Urobilinogen Ur Leukocyte Esterase Urine RBC Urine WBC Ur Squamous Epith Cells Urine Bacteria Urine Mucus 04/06/21 04/06/21 14:59 15:35 WBC RBC Hgb Hct MCV MCH MCHC RDW Std Deviation RDW Coeff of Thierno Plt Count MPV Immature Gran % (Auto) Neut % (Auto) Lymph % (Auto) [place] % (Auto) Eos % (Auto) Baso % (Auto) Absolute Neuts (auto) Absolute Lymphs (auto) Nucleated RBC % Sodium Potassium Chloride Carbon Dioxide Anion Gap BUN Creatinine Estim Creat Clear Calc Est GFR (MDRD) Af Amer Est GFR (MDRD) Non-Af BUN/Creatinine Ratio Glucose Lactic Acid 1.5 Calcium Total Bilirubin AST ALT Alkaline Phosphatase Troponin I High Sens Total Protein Albumin Globulin Albumin/Globulin Ratio Urine Color Yellow Urine Clarity Clear Urine pH 6.5 Ur Specific [place] 1.010 Urine Protein 15 H Urine Glucose (UA) Normal Urine Ketones Negative Urine Occult Blood Negative Urine Nitrite Negative Urine Bilirubin Negative Urine Urobilinogen 1 H Ur Leukocyte Esterase Negative Urine RBC 0 SEEN Urine WBC 0 SEEN Ur Squamous Epith Cells 0-5 SEEN Urine Bacteria 0 SEEN Urine Mucus 0 SEEN Radiography Diagnostic Testing: Radiology Impression Abdomen/Pelvis CT 04/06/21 13:31 IMPRESSION: Findings in keeping with acute sigmoid diverticulitis and fluid collection in the pelvis suggestive of abscess formation. Multiple gallstones. Electronically Signed: Tony Jose MD at 15:05 EDT , Service support , Brain CT 04/06/21 13:31 IMPRESSION: Chronic involutional changes of the brain. Electronically Signed: Tony Jose MD at 14:57 EDT , Service support , Chest X-Ray 04/06/21 13:55 IMPRESSION: Cardiomegaly. Findings suggest mild linear scarring at the left lung base. Electronically Signed: Tony Jose MD at 14:26 EDT , Service support , Discharge Plan Triage Chief Complaint: Weakness ED Provider: Sanjiv Pride Dx/Rx/DC Orders Primary Care Provider: Woo Pineda
--- NOTE | 2021-04-06 13:55 | RAD_ITS ---
STUDY: X-RAY CHEST REASON FOR EXAM: Male, 70 years old. Weakness. Left rib pain following a fall. TECHNIQUE: Single AP portable view of the chest. COMPARISON: Comparison is made with prior study dated 03/24/2021. FINDINGS: EKG electrodes are seen. Stable minimal increased markings at the left lung base suggestive of mild scarring. There is no demonstrated pleural abnormality. Sternal cerclage wires and vascular clips are present from a prior sternotomy and coronary artery bypass graft procedure (CABG). Moderate cardiomegaly. Normal mediastinum and edson. Normal visualized pulmonary arteries. There is atherosclerotic calcification of the aortic arch with tortuosity. Normal visualized thoracic spine. Normal visualized ribs, clavicles, and shoulders. There is no demonstrated abnormality of the visualized soft tissue structures of the upper abdomen. RAD/Chest 1 View (Portable) IMPRESSION: Cardiomegaly. Findings suggest mild linear scarring at the left lung base. Electronically Signed: Tony Jose MD at 14:26 EDT , Service support ,
[2021-04-06 14:04] LABS: Absolute Lymphocyte Count 0.99 X10^3/uL (0.83-4.51); Absolute Neutrophil Count 11.8 X10^3/uL (2.0-7.7); Basophil# 0.04 X10^3/uL; Basophil% 0.3 % (0-1); Eosinophil# 0.02 X10^3/uL; Eosinophils% 0.1 % (0-5); Hematocrit 46.5 % (40-54); Hemoglobin 14.3 g/dL (13.0-16.5); Lymphocyte # 0.99 X10^3/ul (0.83-4.51); Lymphocyte % 7.1 % (19-41); Mean Corp Hgb Conc 30.8 g/dL (32-36); Mean Corpuscular Hgb 27.6 pg (27.0-32.0); Mean Corpuscular Volume 89.6 fL (80-94); Mean Platelet Vol. 10.4 fl (6.2-12.0); Monocyte% 6.5 % (0-10); NRBC Flagged by Analyzer 0 % (0-5); Neutrophil # 11.75 X10^3/uL (2.7-7.7); Neutrophil % 84.9 % (47-70); Platelet Count 380 K/mm3 (150-450); RBC Distribution Width CV 15.8 % (11.6-14.6); RBC Distribution Width SD 51.7 fl (35.1-43.9); Red Blood Count 5.19 M/mm3 (4.6-6.2); White Blood Count 13.9 K/mm3 (4.4-11.0)
[2021-04-06 14:27] LABS: ALB/GLOB Ratio 0.6 RATIO (0.9-2.4); AST(SGOT) 33 U/L (15-37); Alanine Aminotransfer ALT/SGPT 47 U/L (16-61); Albumin, Serum 2.5 g/dL (3.2-5.0); Alkaline Phosphatase 72 U/L (45-117); Anion Gap 8 (5-15); BUN 28 mg/dL (7-18); BUN/Creat Ratio 24.6 RATIO (10-20); Calcium,Total 8.6 mg/dL (8.5-10.1); Chloride 100 mmol/L (98-107); Creatinine, Serum 1.14 mg/dL (0.70-1.30); EST Glomerular Filtration Rate 67 mL/min (>60); Est Glom Filt Rate - Afr Amer 81 mL/min (>60); Globulin 4.4 g/dL (2.2-4.2); Glucose 110 mg/dL (74-106); Potassium 3.9 mmol/L (3.5-5.1); Protein, Total 6.9 g/dL (6.4-8.2); Sodium Level 136 mmol/L (136-145); Troponin-I HS 319.9 pg/mL (3.0-78.5)
[2021-04-06 15:03] LABS: Bacteria 0 SEEN /hpf (None Seen); Mucous, Urine 0 SEEN /hpf (<or=2+); Red Blood Cells-Urine 0 SEEN /hpf (0-5); White Blood Cells 0 SEEN /hpf (0-5)
[2021-04-06 15:13] LABS: Color, Urine Yellow (Yellow); Glucose, Dipstick Normal (Normal); Ketone-Dipstick Negative (Negative); Leukocyte Esterase-Dipstick Negative /ul (Negative); Nitrite-Dipstick Negative (Negative); Occult Blood-Urine Negative /ul (Negative); Protein-Dipstick 15 mg/dl (Negative); Urine Bilirubin Dipstick Negative (Negative); Urine Clarity Clear (Clear); Urine Urobilinogen 1 mg/dl (Normal); Urine pH 6.5 (5.0 - 8.0)
[2021-04-06 15:27] LABS: Squamous Epithelial Cells - UA 0-5 SEEN /hpf (0-5)
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
[2021-04-06 16:09] LABS: Lactic Acid 1.5 mmol/L (0.4-1.9)
--- NOTE | 2021-04-06 17:47 | PCM.HP.STD ---
Documented by User: ZITA Huitron 04/06/21 18:14 HPI - General General Date of Admission: 04/06/21 Date of Service: 04/06/21 Chief Complaint: Weakness and debility HPI Narrative ADRIANNE ALVAREZ, is a 70 M who presents increasing generalized weakness and multiple falls. Patient was here approximately 10 days ago for similar complaints and signed out AMA. Today however patient's girlfriend was increasingly concerned about his continued weakness and debility and brought him to the ER to be evaluated again. patient states that he is now unable to ambulate by himself due to his weakness. [facility] Medical History Atherosclerosis of coronary artery bypass graft without angina pectoris Atherosclerosis of coronary artery of [place] heart without angina pectoris Gaines's esophagus COPD (chronic obstructive pulmonary disease) Diverticulosis Essential hypertension GERD (gastroesophageal reflux disease) Hearing loss, left Hearing loss, right History of DVT (deep vein thrombosis) History of pulmonary embolism Hyperlipidemia Insomnia Myocardial infarct Palpitations Perforation of sigmoid colon due to diverticulitis Severe low back pain Sleep apnea Smoker Vitamin D deficiency Home Medications zolpidem 10 mg PO QHS 05/15/16 [History Last Taken 04/05/21] hydrocodone-acetaminophen 1 tab PO 4X/DAY PRN 09/17/17 [History Last Taken 04/05/21] apixaban 5 mg PO BID #0 09/18/17 [Rx Last Taken 04/06/21] albuterol sulfate 1.25 mg INHALATION Q4H PRN 01/28/19 [History Last Taken Unknown] evolocumab 140 mg/mL subcutaneous pen injector 140 mg SC Q2W 01/28/19 [History Last Taken 03/09/21] ipratropium 20 mcg-albuterol 100 mcg/actuation mist for inhalation 1 puff INHALATION DAILY 90 Days g 01/28/19 [History Last Taken Unknown] tizanidine 4 mg tablet 4 mg PO TID PRN 01/28/19 [History Last Taken Unknown] furosemide 20 mg PO DAILY 03/20/21 [History Last Taken 04/06/21] potassium chloride 10 meq PO DAILY 03/20/21 [History Last Taken 03/23/21] amoxicillin-pot clavulanate 1 tab PO BID 12 Days #24 tab 03/22/21 [Rx Last Taken 04/06/21] ondansetron HCl [Zofran] 4 mg PO Q8H PRN #10 tab 03/22/21 [Rx Last Taken 03/23/21] pantoprazole 40 mg PO DAILY 30 Days #30 tab 03/22/21 [Rx Last Taken 04/05/21] alprazolam 1 mg PO BID 04/06/21 [History Last Taken 04/06/21] atenolol 50 mg PO DAILY 04/06/21 [History Last Taken Unknown] Allergy/AdvReac Type Severity Reaction Status Date / Time cetirizine Allergy Severe chest Verified 04/06/21 12:57 pain, irregular heart beat acyclovir [From Zovirax] Allergy Intermediate GI upset Verified 04/06/21 12:57 Cephalosporins Allergy Intermediate abdominal Verified 04/06/21 12:57 pain Hroeiih-Ztw-Its Reductase Allergy Intermediate increased Verified 04/06/21 12:57 Inhibitor weakness ciprofloxacin [From Cipro] AdvReac Diarrhea Verified 04/06/21 12:57 doxycycline AdvReac Diarrhea Verified 04/06/21 12:57 Family History Mother Breast cancer Father Colon cancer Cancer prostate Surgical History History of cataract removal with insertion of prosthetic lens History of coronary artery bypass graft Presence of stent in coronary artery Social History Smoking Status: Current some day smoker tobacco type: cigarettes alcohol intake: current alcohol intake frequency: holidays/special occasions only substance use type: does not use caffeine: Yes Type: coffee Number of servings: 1 ROS Constitutional Constitutional: Reports weakness; Denies anorexia, chills, fatigue, fever(s) or malaise Cardiovascular Cardiovascular: Denies chest pain, edema or palpitations Respiratory/Chest Respiratory/Chest: Denies cough, shortness of breath at rest or shortness of breath with exertion Gastrointestinal Gastrointestinal: Denies abdominal pain, constipation, diarrhea, nausea or vomiting Genitourinary Genitourinary: Denies dysuria Musculoskeletal Musculoskeletal: Reports muscle weakness; Denies back pain, extremity pain, joint pain or joint stiffness Neurologic Neurologic: Denies abnormal gait, abnormal speech, confusion, dizziness or focal weakness Psychiatric Psychiatric: Denies anxiety or depression Endocrine Endocrinology: Denies change in body appearance Hematologic/Lymphatic Hematologic/Lymphatic: Denies easy bleeding or easy bruising Vital Signs Vital Signs Vital Signs: 04/06/21 12:52 04/06/21 13:14 04/06/21 15:03 Temperature 98.5 F 98.3 F Temperature Source Temporal Temporal Pulse Rate 114 H 96 118 H Respiratory Rate 16 31 H 19 H Respiratory Effort Normal Respiratory Pattern Normal Blood Pressure 107/62 113/79 111/91 H Blood Pressure Mean 77 90 97 Blood Pressure Source Blood Pressure Position Blood Pressure Location Pulse Ox 96 95 96 Oxygen Delivery Method Room Air Room Air Room Air 04/06/21 17:00 04/06/21 17:01 04/06/21 17:38 Temperature 97.9 F 97.9 F 98 F Temperature Source Temporal Temporal Oral Pulse Rate 102 H 102 H 104 H Respiratory Rate 31 H 31 H 18 Respiratory Effort Respiratory Pattern Blood Pressure 107/80 107/80 102/88 H Blood Pressure Mean 89 89 92 Blood Pressure Source Monitor Blood Pressure Position Semi-Fowlers Blood Pressure Location Right Arm Pulse Ox 94 94 93 Oxygen Delivery Method Room Air Room Air Room Air Weight Weight: 159 lb 13.362 oz Body Mass Index (BMI) 26.6 Physical Exam Const alert and oriented x3 General Appearance: cooperative HEENT normocephalic and head/scalp atraumatic Eyes conjunctivae normal and no scleral icterus Neck supple and no JVD General: trachea midline Resp normal respiratory effort, normal air movement and clear to auscultation bilaterally Cardio regular rate, S1 normal heart sound and S2 normal heart sound Rhythm: abnormal rhythm irregularly irregular GI normal to inspection, nondistended, normoactive bowel sounds and soft to palpation Palpation: tender LLQ Extremity normal capillary refill and no clubbing, cyanosis or edema General Extremity: no tenderness to palpation of joints or extremities Skin General Skin Exam: no breakdown and turgor normal Lesions: no lesions Rashes: no rashes Neuro no focal motor deficits and no sensory deficits noted Speech: speech normal Motor Exam: general weakness Psych thought process normal, cooperative and affect normal Appearance: appropriate Results Lab / Micro Data Result Diagrams: 04/06/21 13:20 04/06/21 13:20 Labs: Laboratory Results - last 24 hr 04/06/21 13:20: WBC 13.9 H, RBC 5.19, Hgb 14.3, Hct 46.5, MCV 89.6, MCH 27.6, MCHC 30.8 L, RDW Std Deviation 51.7 H, RDW Coeff of Thierno 15.8 H, Plt Count 380, MPV 10.4, Immature Gran % (Auto) 1.100 H, Neut % (Auto) 84.9 H, Lymph % (Auto) 7.1 L, [place] % (Auto) 6.5, Eos % (Auto) 0.1, Baso % (Auto) 0.3, Absolute Neuts (auto) 11.8 H, Absolute Lymphs (auto) 0.99, Nucleated RBC % 0 04/06/21 13:20: Sodium 136, Potassium 3.9, Chloride 100, Carbon Dioxide 28.0, Anion Gap 8, BUN 28 H, Creatinine 1.14, Estim Creat Clear Calc 51.70, Est GFR (MDRD) Af Amer 81, Est GFR (MDRD) Non-Af 67, BUN/Creatinine Ratio 24.6 H, Glucose 110 H, Calcium 8.6, Total Bilirubin 0.60, AST 33, ALT 47, Alkaline Phosphatase 72, Troponin I High Sens 319.9 H*, Total Protein 6.9, Albumin 2.5 L, Globulin 4.4 H, Albumin/Globulin Ratio 0.6 L 04/06/21 14:37: Lactic Acid Cancelled 04/06/21 14:59: Urine Color Yellow, Urine Clarity Clear, Urine pH 6.5, Ur Specific [place] 1.010, Urine Protein 15 H, Urine Glucose (UA) Normal, Urine Ketones Negative, Urine Occult Blood Negative, Urine Nitrite Negative, Urine Bilirubin Negative, Urine Urobilinogen 1 H, Ur Leukocyte Esterase Negative, Urine RBC 0 SEEN, Urine WBC 0 SEEN, Ur Squamous Epith Cells 0-5 SEEN, Urine Bacteria 0 SEEN, Urine Mucus 0 SEEN 04/06/21 15:35: Lactic Acid 1.5 Radiology Impression Abdomen/Pelvis CT 04/06/21 13:31 IMPRESSION: Findings in keeping with acute sigmoid diverticulitis and fluid collection in the pelvis suggestive of abscess formation. Multiple gallstones. Electronically Signed: Tony Jose MD at 15:05 EDT , Service support , Brain CT 04/06/21 13:31 IMPRESSION: Chronic involutional changes of the brain. Electronically Signed: Tony Jose MD at 14:57 EDT , Service support , Chest X-Ray 04/06/21 13:55 IMPRESSION: Cardiomegaly. Findings suggest mild linear scarring at the left lung base. Electronically Signed: Tony Jose MD at 14:26 EDT , Service support , Assessment & Plan Assessment/Plan (1) Intestinal diverticular abscess: (2) Debility: PLAN: 1. Intestinal diverticular abscess -Admit to PCU -Consult surgery, case discussed with Dr. Robertson who will follow with patient, is not planning surgical intervention at this time. -IV Zosyn ordered, patient got 1 dose meropenem in ER 2. Debility -PT and OT to eval and treat -Patient will most likely need to go to a [facility] facility upon discharge due to repeated admissions and increasing weakness. -Fall precautions ordered for patient due to history of multiple falls at home and while hospitalized during previous admission 3. Atrial fibrillation with rapid ventricular response -Patient has a chronic history of A. fib, current heart rate 104. -Will continue atenolol and propanolol for rate control, Eliquis held at this time due to further surgical evaluation -Continuous cardiac monitoring ordered -Echo 03/24/21 shows EF 40-45% 4. Hypertension -Continue propanolol, atenolol, furosemide. -Vital signs per protocol trend BP, heart rate -Current vital signs stable 5. COPD -As needed albuterol nebulizer treatments ordered along with scheduled DuoNeb. -O2 per protocol 6. Anxiety and depression -Continue alprazolam and zolpidem 7. Chronic pain -Will continue home medication regimen including tizanidine and hydrocodone DVT prophylaxis- SCDs. This patient was seen by Josie Cortez NP-C under the supervision of Dr. Blevins. Documented by User: Dr. Darrian Blevins, DO 04/06/21 20:47 HPI - General General Date of Admission: 04/06/21 PFSH Medical History Atherosclerosis of coronary artery bypass graft without angina pectoris Atherosclerosis of coronary artery of [place] heart without angina pectoris Gaines's esophagus COPD (chronic obstructive pulmonary disease) Diverticulosis Essential hypertension GERD (gastroesophageal reflux disease) Hearing loss, left Hearing loss, right History of DVT (deep vein thrombosis) History of pulmonary embolism Hyperlipidemia Insomnia Myocardial infarct Palpitations Perforation of sigmoid colon due to diverticulitis Severe low back pain Sleep apnea Smoker Vitamin D deficiency Home Medications zolpidem 10 mg PO QHS 05/15/16 [History Last Taken 04/05/21] hydrocodone-acetaminophen 1 tab PO 4X/DAY PRN 09/17/17 [History Last Taken 04/05/21] apixaban 5 mg PO BID #0 09/18/17 [Rx Last Taken 04/06/21] albuterol sulfate 1.25 mg INHALATION Q4H PRN 01/28/19 [History Last Taken Unknown] evolocumab 140 mg/mL subcutaneous pen injector 140 mg SC Q2W 01/28/19 [History Last Taken 03/09/21] ipratropium 20 mcg-albuterol 100 mcg/actuation mist for inhalation 1 puff INHALATION DAILY 90 Days g 01/28/19 [History Last Taken Unknown] tizanidine 4 mg tablet 4 mg PO TID PRN 01/28/19 [History Last Taken Unknown] furosemide 20 mg PO DAILY 03/20/21 [History Last Taken 04/06/21] potassium chloride 10 meq PO DAILY 03/20/21 [History Last Taken 03/23/21] amoxicillin-pot clavulanate 1 tab PO BID 12 Days #24 tab 03/22/21 [Rx Last Taken 04/06/21] ondansetron HCl [Zofran] 4 mg PO Q8H PRN #10 tab 03/22/21 [Rx Last Taken 03/23/21] pantoprazole 40 mg PO DAILY 30 Days #30 tab 03/22/21 [Rx Last Taken 04/05/21] alprazolam 1 mg PO BID 04/06/21 [History Last Taken 04/06/21] atenolol 50 mg PO DAILY 04/06/21 [History Last Taken Unknown] Allergy/AdvReac Type Severity Reaction Status Date / Time cetirizine Allergy Severe chest Verified 04/06/21 12:57 pain, irregular heart beat acyclovir [From Zovirax] Allergy Intermediate GI upset Verified 04/06/21 12:57 Cephalosporins Allergy Intermediate abdominal Verified 04/06/21 12:57 pain Hoeqgqw-Nkx-Kov Reductase Allergy Intermediate increased Verified 04/06/21 12:57 Inhibitor weakness ciprofloxacin [From Cipro] AdvReac Diarrhea Verified 04/06/21 12:57 doxycycline AdvReac Diarrhea Verified 04/06/21 12:57 Family History Mother Breast cancer Father Colon cancer Cancer prostate Surgical History History of cataract removal with insertion of prosthetic lens History of coronary artery bypass graft Presence of stent in coronary artery Social History Smoking Status: Current some day smoker tobacco type: cigarettes alcohol intake: current alcohol intake frequency: holidays/special occasions only substance use type: does not use caffeine: Yes Type: coffee Number of servings: 1 Results Lab / Micro Data Result Diagrams: 04/06/21 13:20 04/06/21 13:20 Charges/Coding Addendum Addendum: Patient was seen and examined today independently of Josie Cortez, he checked himself out of [facility] today AGAINST MEDICAL ADVICE and was brought here by his significant other. Patient was hospitalized earlier this month and was discharged AGAINST MEDICAL ADVICE on 03/27/2021 after coming in for a non-STEMI. At that time he was severely debilitated but refused to go to a [facility] facility. Today he was brought to the emergency room at [facility] with complaints of generalized weakness. On examination he appeared older than his stated age, he appeared to be unkempt. Vital signs as documented. Skin warm and dry and without overt rashes. Neck without JVD, neck was supple, trachea midline, thyroid was normal. Lungs clear bilaterally, normal air movement was noted. Heart exam notable for regular rhythm, normal sounds and absence of murmurs, rubs or gallops. Abdomen unremarkable and without evidence of organomegaly, masses, or abdominal aortic enlargement. Bowel sounds are present, abdomen is not distended. Extremities nonedematous, no cyanosis was noted, no clubbing was noted. Neuro: Cranial nerves II through XII are grossly intact, no focal motor deficits were noted, sensation to light touch and pinprick intact, motor exam 5/5 throughout. Psych: Patient is alert and oriented x3, he does not appear anxious or depressed, he does not appear agitated. Patient will be admitted to PCU for sepsis secondary to diverticular abscess and generalized weakness, he will be treated with IV Zosyn and seen in consultation by surgery. Patient was taking Eliquis prior to coming into the hospital today, he will not be able to have a percutaneous drainage of his diverticular abscess most probably for 48 hours. I have reviewed Doyle Cortez's history and physical including her medical assessment and plan of care and endorse it. Visit Charges Inpatient E&M: 16108 Init Hosp L3
[2021-04-06] MEDS: 0.9% Normal Saline 1,000 ML 75 ML IV (18:37)
[2021-04-06] MEDS: ALPRAZolam 0.5 MG Tablet 1 MG PO (20:47)
[2021-04-07] VITALS (9 sets, daily range): BP systolic 102–116; BP diastolic 67–76; PULSE 64–70; RESP 16–18; TEMP 36.1–36.8; O2SAT 95–97
[2021-04-07] MEDS: oxyCODONE 5 MG Tablet PO ×2 (04:12→20:16)
[2021-04-07 06:48] LABS: Absolute Lymphocyte Count 1.02 X10^3/uL (0.83-4.51); Absolute Neutrophil Count 10.2 X10^3/uL (2.0-7.7); Basophil# 0.03 X10^3/uL; Basophil% 0.2 % (0-1); Eosinophil# 0.02 X10^3/uL; Eosinophils% 0.2 % (0-5); Hematocrit 43.3 % (40-54); Hemoglobin 13.2 g/dL (13.0-16.5); Lymphocyte # 1.02 X10^3/ul (0.83-4.51); Lymphocyte % 8.3 % (19-41); Mean Corp Hgb Conc 30.5 g/dL (32-36); Mean Corpuscular Hgb 27.3 pg (27.0-32.0); Mean Corpuscular Volume 89.6 fL (80-94); Mean Platelet Vol. 10.6 fl (6.2-12.0); Monocyte% 7.3 % (0-10); NRBC Flagged by Analyzer 0 % (0-5); Neutrophil # 10.18 X10^3/uL (2.7-7.7); Neutrophil % 82.5 % (47-70); Platelet Count 361 K/mm3 (150-450); RBC Distribution Width CV 15.9 % (11.6-14.6); RBC Distribution Width SD 51.8 fl (35.1-43.9); Red Blood Count 4.83 M/mm3 (4.6-6.2); White Blood Count 12.3 K/mm3 (4.4-11.0)
[2021-04-07 07:15] LABS: ALB/GLOB Ratio 0.5 RATIO (0.9-2.4); AST(SGOT) 25 U/L (15-37); Alanine Aminotransfer ALT/SGPT 37 U/L (16-61); Albumin, Serum 2.3 g/dL (3.2-5.0); Alkaline Phosphatase 69 U/L (45-117); Anion Gap 7 (5-15); BUN 23 mg/dL (7-18); BUN/Creat Ratio 21.7 RATIO (10-20); Calcium,Total 8.4 mg/dL (8.5-10.1); Chloride 105 mmol/L (98-107); Creatinine, Serum 1.06 mg/dL (0.70-1.30); EST Glomerular Filtration Rate 73 mL/min (>60); Est Glom Filt Rate - Afr Amer 88 mL/min (>60); Globulin 4.2 g/dL (2.2-4.2); Glucose 87 mg/dL (74-106); Potassium 3.7 mmol/L (3.5-5.1); Protein, Total 6.5 g/dL (6.4-8.2); Sodium Level 138 mmol/L (136-145)
--- NOTE | 2021-04-07 09:39 | CASEMGMT ---
PAMELLA is familiar with patient from a recent admission. He left AMA that last visit so PAMELLA called [facility] ([facility]) and made a referral. [facility] called the ED PAMELLA yesterday to notify her that patient may be coming into the hospital as he left another hospital AMA recently. PAMELLA called Alan at [facility] and left her a voice mail letting her know patient is her at [facility] and checking to see if there is anything SW needs to know regarding their involvement. Esperanza Paul [employer]
[2021-04-07] MEDS: Potassium Chloride Oral Tablet 10 MEQ PO (10:07)
[2021-04-07] MEDS: Furosemide 20 MG Tablet PO (10:07)
[2021-04-07] MEDS: Pantoprazole Sodium 40 MG Tablet PO (10:08)
[2021-04-07] MEDS: Atenolol 50 MG Tablet PO (10:08)
[2021-04-07] MEDS: ALPRAZolam 0.5 MG Tablet 1 MG PO ×2 (10:14→23:04)
--- NOTE | 2021-04-07 11:24 | CON.PCM.SX_ITS ---
Assessment & Plan Assessment/Plan (1) Intestinal diverticular abscess: PLAN: Patient has diverticulitis with abscess. Patient was recently in another hospital and given antibiotics. New CT scan shows abscess in the pe lvis. The patient should have percutaneous drainage but he is on Eliquis and required 2 days until he is able to have drain placed. I recommend the patient not go be on clear liquids until drain is placed and his pain is resolved and white count normalizes. Lenny Robertson MD Pager: [facility] [address] [place] [address] [address] [place], [address] [place] [address] Office: HPI Consult Data Date of Consult: 04/07/21 HPI Narrative HPI Narrative: ADRIANNE ALVAREZ, is a 70 M who presents with abdominal pain. The patient reports he has been having weakness for several weeks. The patient says that he was then recently in another hospital for diverticulitis and he was recently here for diverticulitis. Patient reports no nausea vomiting or fevers or chills. Patient says he has lower abdominal discomfort. [facility] Medical History Atherosclerosis of coronary artery bypass graft without angina pectoris Atherosclerosis of coronary artery of [place] heart without angina pectoris Gaines's esophagus COPD (chronic obstructive pulmonary disease) Diverticulosis Essential hypertension GERD (gastroesophageal reflux disease) Hearing loss, left Hearing loss, right History of DVT (deep vein thrombosis) History of pulmonary embolism Hyperlipidemia Insomnia Myocardial infarct Palpitations Perforation of sigmoid colon due to diverticulitis Severe low back pain Sleep apnea Smoker Vitamin D deficiency Home Medications zolpidem 10 mg PO QHS 05/15/16 [History Last Taken 04/05/21] hydrocodone-acetaminophen 1 tab PO 4X/DAY PRN 09/17/17 [History Last Taken 04/05/21] apixaban 5 mg PO BID #0 09/18/17 [Rx Last Taken 04/06/21] albuterol sulfate 1.25 mg INHALATION Q4H PRN 01/28/19 [History Last Taken Unknown] evolocumab 140 mg/mL subcutaneous pen injector 140 mg SC Q2W 01/28/19 [History Last Taken 03/09/21] ipratropium 20 mcg-albuterol 100 mcg/actuation mist for inhalation 1 puff INHALATION DAILY 90 Days g 01/28/19 [History Last Taken Unknown] tizanidine 4 mg tablet 4 mg PO TID PRN 01/28/19 [History Last Taken Unknown] furosemide 20 mg PO DAILY 03/20/21 [History Last Taken 04/06/21] potassium chloride 10 meq PO DAILY 03/20/21 [History Last Taken 03/23/21] amoxicillin-pot clavulanate 1 tab PO BID 12 Days #24 tab 03/22/21 [Rx Last Taken 04/06/21] ondansetron HCl [Zofran] 4 mg PO Q8H PRN #10 tab 03/22/21 [Rx Last Taken 03/23/21] pantoprazole 40 mg PO DAILY 30 Days #30 tab 03/22/21 [Rx Last Taken 04/05/21] alprazolam 1 mg PO BID 04/06/21 [History Last Taken 04/06/21] atenolol 50 mg PO DAILY 04/06/21 [History Last Taken Unknown] Allergy/AdvReac Type Severity Reaction Status Date / Time cetirizine Allergy Severe chest Verified 04/06/21 12:57 pain, irregular heart beat acyclovir [From Zovirax] Allergy Intermediate GI upset Verified 04/06/21 12:57 Cephalosporins Allergy Intermediate abdominal Verified 04/06/21 12:57 pain Pwsnuob-Pcu-Byb Reductase Allergy Intermediate increased Verified 04/06/21 12:57 Inhibitor weakness ciprofloxacin [From Cipro] AdvReac Diarrhea Verified 04/06/21 12:57 doxycycline AdvReac Diarrhea Verified 04/06/21 12:57 Family History Mother Breast cancer Father Colon cancer Cancer prostate Surgical History History of cataract removal with insertion of prosthetic lens History of coronary artery bypass graft Presence of stent in coronary artery Social History Smoking Status: Current some day smoker tobacco type: cigarettes alcohol intake: current alcohol intake frequency: holidays/special occasions only substance use type: does not use caffeine: Yes Type: coffee Number of servings: 1 ROS Constitutional Constitutional: Reports fatigue; Denies anorexia Eyes Eyes: Denies blurry vision ENT HEENT: Denies abnormal hearing Cardiovascular Cardiovascular: Denies chest pain Respiratory/Chest Respiratory/Chest: Denies cough Gastrointestinal Gastrointestinal: Reports abdominal pain; Denies constipation, diarrhea, melena, nausea or vomiting Genitourinary Genitourinary: Denies change in urinary stream Musculoskeletal Musculoskeletal: Denies abnormal gait Psychiatric Psychiatric: Denies anxiety Endocrine Endocrinology: Denies flushing Hematologic/Lymphatic Hematologic/Lymphatic: Denies easy bleeding Physical Exam Const alert and oriented x3 HEENT normocephalic Eyes PERRL Resp normal respiratory effort and normal air movement Cardio regular rate and regular rhythm Rate: regular rate Rhythm: regular rhythm GI soft to palpation and non-distended Palpation: tender suprapubic Lab / Micro Data Result Diagrams: 04/07/21 05:50 04/07/21 05:50 Labs: Laboratory Results - last 24 hr 04/06/21 13:20: WBC 13.9 H, RBC 5.19, Hgb 14.3, Hct 46.5, MCV 89.6, MCH 27.6, MCHC 30.8 L, RDW Std Deviation 51.7 H, RDW Coeff of Thierno 15.8 H, Plt Count 380, MPV 10.4, Immature Gran % (Auto) 1.100 H, Neut % (Auto) 84.9 H, Lymph % (Auto) 7.1 L, [place] % (Auto) 6.5, Eos % (Auto) 0.1, Baso % (Auto) 0.3, Absolute Neuts ( auto) 11.8 H, Absolute Lymphs (auto) 0.99, Nucleated RBC % 0 04/06/21 13:20: Sodium 136, Potassium 3.9, Chloride 100, Carbon Dioxide 28.0, Anion Gap 8, BUN 28 H, Creatinine 1.14, Estim Creat Clear Calc 51.70, Est GFR (MDRD) Af Amer 81, Est GFR (MDRD) Non-Af 67, BUN/Creatinine Ratio 24.6 H, Glucose 110 H, Calcium 8.6, Total Bilirubin 0.60, AST 33, ALT 47, Alkaline Phosphatase 72, Troponin I High Sens 319.9 H*, Total Protein 6.9, Albumin 2.5 L, Globulin 4.4 H, Albumin/Globulin Ratio 0.6 L 04/06/21 14:37: Lactic Acid Cancelled 04/06/21 14:59: Urine Color Yellow, Urine Clarity Clear, Urine pH 6.5, Ur Specific [place] 1.010, Urine Protein 15 H, Urine Glucose (UA) Normal, Urine Ketones Negative, Urine Occult Blood Negative, Urine Nitrite Negative, Urine Bilirubin Negative, Urine Urobilinogen 1 H, Ur Leukocyte Esterase Negative, Urine RBC 0 SEEN, Urine WBC 0 SEEN, Ur Squamous Epith Cells 0-5 SEEN, Urine [place] 0 SEEN, Urine Mucus 0 SEEN 04/06/21 15:35: Lactic Acid 1.5 04/07/21 05:50: WBC 12.3 H, RBC 4.83, Hgb 13.2, Hct 43.3, MCV 89.6, MCH 27.3, MCHC 30.5 L, RDW Std Deviation 51.8 H, RDW Coeff of Thierno 15.9 H, Plt Count 361, MPV 10.6, Immature Gran % (Auto) 1.500 H, Neut % (Auto) 82.5 H, Lymph % (Auto) 8.3 L, [place] % (Auto) 7.3, Eos % (Auto) 0.2, Baso % (Auto) 0.2, Absolute Neuts (a uto) 10.2 H, Absolute Lymphs (auto) 1.02, Nucleated RBC % 0 04/07/21 05:50: Sodium 138, Potassium 3.7, Chloride 105, Carbon Dioxide 26.0, Anion Gap 7, BUN 23 H, Creatinine 1.06, Estim Creat Clear Calc 55.60, Est GFR (MDRD) Af Amer 88, Est GFR (MDRD) Non-Af 73, BUN/Creatinine Ratio 21.7 H, Glucose 87, Calcium 8.4 L, Total Bilirubin 0.70, AST 25, ALT 37, Alkaline Phosphatase 69, Total Protein 6.5, Albumin 2.3 L, Globulin 4.2, Albumin/Globulin Ratio 0.5 L Radiology Impression Abdomen/Pelvis CT 04/06/21 13:31 IMPRESSION: Findings in keeping with acute sigmoid diverticulitis and fluid collection in the pelvis suggestive of abscess formation. Multiple gallstones. Electronically Signed: Tony Jose MD at 15:05 EDT , Service support , Brain CT 04/06/21 13:31 IMPRESSION: Chronic involutional changes of the brain. Electronically Signed: Tony Jose MD at 14:57 EDT , Service support , Chest X-Ray 04/06/21 13:55 IMPRESSION: Cardiomegaly. Findings suggest mild linear scarring at the left lung base. Electronically Signed: Tony Jose MD at 14:26 EDT , Service support ,
--- NOTE | 2021-04-07 11:45 | CASEMGMT ---
PAMELLA received a call from Oliva with Adult Protective Services. She said patient's doctor's office called them and let them know he was confused. She asked SW to let her know if he leaves AMA or when he leaves the hospital. Esperanza TORREZ
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
[2021-04-07] MEDS: 0.9% Normal Saline 1,000 ML 75 ML IV (14:36)
--- NOTE | 2021-04-07 15:46 | CASEMGMT ---
JUAN RAMON ASCENCIO NOTE: Pt qualifies for a Palliative referral per the [facility] palliative screening tool at this time. Dr Blevins aware but is not agreeable to Palliative referral at this time. Jonathan GOMEZ RN CM
[2021-04-07 17:08] LABS: International Normalized Ratio 1.3; Prothrombin Time (Protime)PT. 15.3 SECONDS (11.7-14.9)
[2021-04-07 17:09] LABS: Partial Thromboplast Time 33.2 Seconds (24.1-36.2)
--- NOTE | 2021-04-07 19:23 | PN.HOSP_ITS ---
Subjective Subjective Patient was seen and examined today, he appears in no distress to this examiner. Patient states he feels unwell but is not specific about actual complaints. The plan is for the patient to have a percutaneous drainage of his diverticular abscess tomorrow. According to social media content manager, it does not appear that the patient will meet criteria for inpatient jail services at the time of discharge based on his functionality status at this time. Patient shows evidence of cognitive impairment at times during my examination, I feel he probably has some kind of underlying psych disorder. Objective Data Objective Data Vital Signs: Vital Signs Temp Pulse Resp BP Pulse Ox 97.9 F 64 18 103/67 97 04/07/21 14:50 04/07/21 16:30 04/07/21 14:50 04/07/21 14:50 04/07/21 14:50 Oxygen Delivery Method Room Air Weight: 72.5 kg Body Mass Index (BMI) 26.6 Intake & Output: Intake and Output for Last 24 Hours 04/05/21 04/06/21 04/07/21 23:59 23:59 23:59 Intake Total 607.5 / 607.5 1130.0 / 1130.0 Output Total 150 / 150 Balance 457.5 / 457.5 1130.0 / 1130.0 Medical Nutrition Assessment Dietitian: Nutrition Therapy Diagnosis Start: 04/07/21 11:14 Freq: Status: Active Protocol: Document 04/07/21 11:31 (Rec: 04/07/21 11:31 [id number]) Nutrition Malnutrition Evidence of Malnutrition Exists Yes Malnutrition (severe): Acute Illness/Injury Evidenced By Suboptimal Energy Intake ( Severe),Weight Loss (Severe) Clinical Problem Acute Disease or Injury Related Malnutrition Etiology severe, acute malnutrition related to inadequate energy intake w/ recent acute illness , hospitalizations Signs/Symptoms as evidenced by estimated PO intake meeting <50% of pt's nutritional needs x 2 weeks, unintentional wt loss of 19.2# /11% x 2 weeks. Status Active Problem Recommendation Dietitian Recommendations/Changes recommend advance diet as tolerated to transitional, no added salt. Ensure Clear 120mL 4x/day d/t malnutrition. Lab / Micro Data Result Diagrams: 04/07/21 05:50 04/07/21 05:50 Labs: Laboratory Results - last 24 hr 04/07/21 05:50: WBC 12.3 H, RBC 4.83, Hgb 13.2, Hct 43.3, MCV 89.6, MCH 27.3, MCHC 30.5 L, RDW Std Deviation 51.8 H, RDW Coeff of Thierno 15.9 H, Plt Count 361, MPV 10.6, Immature Gran % (Auto) 1.500 H, Neut % (Auto) 82.5 H, Lymph % (Auto) 8.3 L, Dukes % (Auto) 7.3, Eos % (Auto) 0.2, Baso % (Auto) 0.2, Absolute Neuts (auto) 10.2 H, Absolute Lymphs (auto) 1.02, Nucleated RBC % 0 04/07/21 05:50: Sodium 138, Potassium 3.7, Chloride 105, Carbon Dioxide 26.0, Anion Gap 7, BUN 23 H, Creatinine 1.06, Estim Creat Clear Calc 55.60, Est GFR (MDRD) Af Amer 88, Est GFR (MDRD) Non-Af 73, BUN/Creatinine Ratio 21.7 H, Glucose 87, Calcium 8.4 L, Total Bilirubin 0.70, AST 25, ALT 37, Alkaline Phosphatase 69, Total Protein 6.5, Albumin 2.3 L, Globulin 4.2, Albumin/Globulin Ratio 0.5 L 04/07/21 16:15: PT 15.3 H, INR 1.3, APTT 33.2 Physical Exam Const alert, oriented x3 and no apparent distress Constitutional Narrative: Patient appears older than his stated age General Appearance: cooperative, well kempt and well developed Orientation / Consciousness: awake, oriented to person, oriented to place and oriented to time Nutritional Appearance: cachectic HEENT normocephalic and moist oral mucous membranes Eyes PERRL, EOMs intact bilaterally and conjunctivae normal Neck nuchal rigidity, supple, no JVD, thyroid normal and no carotid bruits General: trachea midline Resp normal respiratory effort, no retractions, no use of accessory muscles and clear to auscultation bilaterally Auscultation: Negative for rales, rhonchi or wheezes Cardio regular rate, regular rhythm, S1 normal heart sound, S2 normal heart sound, no murmurs, no rub and no gallops GI normal to inspection, nondistended, normoactive bowel sounds, soft to palpation, non-tender and non-distended Extremity normal to inspection and no clubbing, cyanosis or edema Skin no rashes or lesions noted and no wounds General Skin Exam: no breakdown Neuro oriented x3, CN's II-XII intact bilaterally, no focal motor deficits and no sensory deficits noted Sensorium / Orientation: awake and alert Speech: speech normal Psych thought process normal Psych Narrative: Patient affect is flat Assessment & Plan Assessment/Plan (1) Intestinal diverticular abscess: PLAN: 1. 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
[2021-04-08] VITALS (17 sets, daily range): BP systolic 99–167; BP diastolic 63–148; PULSE 68–120; RESP 16–33; TEMP 36.3–36.6; O2SAT 93–100; BMI 26.6
[2021-04-08] MEDS: 0.9% Normal Saline 1,000 ML 75 ML IV (05:05)
--- NOTE | 2021-04-08 09:00 | CT_ITS ---
PROCEDURE: CT DIRECTED ABSCESS DRAINAGE, PERITONEAL DATE OF EXAMINATION: 04/08/2021. INDICATION: Male, 70 years old. Pelvic abscess. PHYSICIAN: Tony Jose M.D. CONSENT: Written informed consent was obtained having explained the risks, including bleeding and infection as well as benefits and alternatives in detail with the patient who accepted the risks and agreed to proceed. Laboratory review and clinical assessment was performed. CONSCIOUS SEDATION PROTOCOL: The Drugs used were: 2 mg Versed, IV., and 50 mcg Fentanyl, IV. The sedation time was: 25 minutes. Conscious sedation was started on 9:24 AM and terminated at 9:49 AM. The conscious sedation protocol was independently monitored. RADIATION DOSAGE (If Supplied By Facility): CTDIvol = ( 9.6 ) mGy, DLP = ( 339.44 ) mGycm. Individualized dose optimization techniques were utilized. TECHNIQUE: CT sections were made through the abdomen and pelvis revealing an abscess in the cul-de-sac. The skin surface was prepped and draped in a sterile fashion. Puncture of this collection was performed initially with a 8 Vietnamese catheter and fluid was aspirated. Drainage catheter was then inserted into the collection and formed into position. Additional fluid was aspirated for a total of approximately 40 cc of cloudy red fluid. The catheter was sutured into position to allow for continued drainage. Followup CT sections reveals good position of the catheter. CT/Biopsy/Inj or Needle Placement IMPRESSION: 1. CT directed drainage of a fluid collection using CT image guidance and image documentation as described. 2. Conscious Sedation protocol utilized with independent monitoring Electronically Signed: Tony Jose MD at 10:07 EDT , Service support ,
[2021-04-08] MEDS: Midazolam 2 MG/2 ML Syringe IV (09:24)
[2021-04-08] MEDS: fentaNYL 100 MCG/2 ML Ampul IV (09:26)
--- NOTE | 2021-04-08 09:41 | PCM.PN.SRG ---
Subjective Subjective Patient no changes overnight with minimal abdominal pain. Objective Data Objective Data Vital Signs: Vital Signs Temp Pulse Resp BP Pulse Ox 97.8 F 107 H 26 H 110/71 94 04/08/21 08:25 04/08/21 08:54 04/08/21 08:54 04/08/21 08:54 04/08/21 09:10 Oxygen Delivery Method Room Air Weight: 159 lb 13.362 oz Body Mass Index (BMI) 26.6 Intake & Output: Intake and Output for Last 24 Hours 04/06/21 04/07/21 04/08/21 23:59 23:59 23:59 Intake Total 607.5 / 607.5 1130.0 / 1610.0 / Output Total 150 / 150 Balance 457.5 / 457.5 1130.0 / 1610.0 Medical Nutrition Assessment Dietitian: Nutrition Therapy Diagnosis Start: 04/07/21 11:14 Freq: Status: Active Protocol: Document 04/07/21 11:31 AG (Rec: 04/07/21 11:31 [id number]) Nutrition Malnutrition Evidence of Malnutrition Exists Yes Malnutrition (severe): Acute Illness/Injury Evidenced By Suboptimal Energy Intake ( Severe),Weight Loss (Severe) Clinical Problem Acute Disease or Injury Related Malnutrition Etiology severe, acute malnutrition related to inadequate energy intake w/ recent acute illness , hospitalizations Signs/Symptoms as evidenced by estimated PO intake meeting <50% of pt's nutritional needs x 2 weeks, unintentional wt loss of 19.2# /11% x 2 weeks. Status Active Problem Recommendation Dietitian Recommendations/Changes recommend advance diet as tolerated to transitional, no added salt. Ensure Clear 120mL 4x/day d/t malnutrition. Lab / Micro Data Result Diagrams: 04/07/21 05:50 04/07/21 05:50 Labs: Laboratory Results - last 24 hr 04/07/21 16:15: PT 15.3 H, INR 1.3, APTT 33.2 Physical Exam Const alert and oriented x3 Resp normal respiratory effort and normal air movement Cardio regular rate and regular rhythm GI soft to palpation and non-distended Palpation: tender Assessment & Plan Assessment/Plan (1) Intestinal diverticular abscess: PLAN: Patient reports no changes overnight. He is getting his percutaneous drainage of abscess today. Continue antibiotics. Once the patient has a percutaneous drain in place and begins passing flatus he may advance his diet to a low residue diet. Lenny Robertson MD Pager: [facility] [address] [place] [address] [address] [place] [address] Office:
[2021-04-08] MEDS: Lidocaine 2% (20 ml mdv) 20 ML Vial INFILT (10:16)
[2021-04-08] MEDS: ALPRAZolam 0.5 MG Tablet 1 MG PO ×3 (11:38→21:52)
[2021-04-08] MEDS: Pantoprazole Sodium 40 MG Tablet PO (11:38)
[2021-04-08] MEDS: Potassium Chloride Oral Tablet 10 MEQ PO (11:38)
[2021-04-08] MEDS: Atenolol 50 MG Tablet PO (11:39)
[2021-04-08] MEDS: Furosemide 20 MG Tablet PO (11:39)
--- NOTE | 2021-04-08 12:44 | CASEMGMT ---
SW went to patient's room to discuss Healthcare POA. Patient's girlfriend was not present. Patient was lying in bed with eyes closed. SW asked him if he wanted to complete his Healthcare Power of Steelworker. He said he would do it later. SW asked who he wanted as his Healthcare POA and he said lets do it later. SW will check back with patient. Esperanza TORREZ
--- NOTE | 2021-04-08 14:17 | CASEMGMT ---
Readmission chart review: Pt came to [facility] ED on 03/23/21 for weakness, frequent falls and was admitted to [facility] 03/24-03/26/21 for NSTEMI, Afib RVR. Pt then signed out AMA on 03/26/21. Per notes, pt was then admitted at [facility] for same and signed out AMA there as well. Pt returned to [facility] ED on 04/06/21 for continued weakness and was admitted for sepsis/diverticular abscess. Pt had percutaneous drain placed today for abscess. CM to follow for any further discharge planning/needs. SStmita RN CM
--- NOTE | 2021-04-08 14:49 | NURSING ---
Patient set off bed exit, IUSS ANALYST went to room and called RN to come to room. Patient pulled out IV, removed tele and pulled out TANO drain that was placed today in radiology. Dr. Blevins and airport refueling handler made aware.
[2021-04-08] MEDS: Ertapenem Sod 1 GM/10 ML Vial IM (16:05)
--- NOTE | 2021-04-08 16:34 | PN.HOSP_ITS ---
Subjective Subjective Patient was seen and examined today, he underwent insertion of a drainage tube via abdominal CAT scan for drainage of a diverticular abscess. Shortly after this was performed and the patient had returned back to his room, patient pulled out his IV and his drainage tube, he apologized after he did it but did not give a reason why he pulled the tubes out. I have decided at this point not to restart his IV and give him IM Invanz, patient inquired as to when he could go home, I advised him to stay 1 more night in the hospital. Objective Data Objective Data Vital Signs: Vital Signs Temp Pulse Resp BP Pulse Ox 97.8 F 102 H 18 111/78 95 04/08/21 11:01 04/08/21 11:01 04/08/21 11:01 04/08/21 11:01 04/08/21 11:01 Oxygen Flow Rate (L/min) [6] 2 Oxygen Flow Rate (L/min) [5] 2 Oxygen Flow Rate (L/min) [4] 2 Oxygen Flow Rate (L/min) [3] 2 Oxygen Flow Rate (L/min) [2] 2 Oxygen Flow Rate (L/min) [1 ( 2 Initial Baseline)] Oxygen Delivery Method [6] Nasal Cannula Oxygen Delivery Method [5] Nasal Cannula Oxygen Delivery Method [4] Nasal Cannula Oxygen Delivery Method [3] Nasal Cannula Oxygen Delivery Method [2] Nasal Cannula Oxygen Delivery Method [1 ( Nasal Cannula Initial Baseline)] Oxygen Delivery Method Room Air Weight: 72.5 kg Body Mass Index (BMI) 26.6 Intake & Output: Intake and Output for Last 24 Hours 04/06/21 04/07/21 04/08/21 23:59 23:59 23:59 Intake Total 607.5 / 607.5 1130.0 / 1610.0 2296.83 / 2296.83 Output Total 150 / 150 Balance 457.5 / 457.5 1130.0 / 1610.0 2296.83 / 2296.83 Medical Nutrition Assessment Dietitian: Nutrition Therapy Diagnosis Start: 04/07/21 11:14 Freq: Status: Active Protocol: Document 04/07/21 11:31 AG (Rec: 04/07/21 11:31 AG [id number]) Nutrition Malnutrition Evidence of Malnutrition Exists Yes Malnutrition (severe): Acute Illness/Injury Evidenced By Suboptimal Energy Intake ( Severe),Weight Loss (Severe) Clinical Problem Acute Disease or Injury Related Malnutrition Etiology severe, acute malnutrition related to inadequate energy intake w/ recent acute illness , hospitalizations Signs/Symptoms as evidenced by estimated PO intake meeting <50% of pt's nutritional needs x 2 weeks, unintentional wt loss of 19.2# /11% x 2 weeks. Status Active Problem Recommendation Dietitian Recommendations/Changes recommend advance diet as tolerated to transitional, no added salt. Ensure Clear 120mL 4x/day d/t malnutrition. Lab / Micro Data Result Diagrams: 04/07/21 05:50 04/07/21 05:50 Labs: Laboratory Results - last 24 hr 04/07/21 16:15: PT 15.3 H, INR 1.3, APTT 33.2 04/08/21 09:30: Fluid Source Cancelled, Fluid Color Cancelled, Fluid Appearance Cancelled, Fluid WBC Cancelled, Fluid RBC Cancelled, Fluid Tot Cell Count Cancelled, Fld Polynuclear WBCs # Cancelled, Fld Polynuclear WBCs % Cancelled, Fluid Mononuclear WBCs Cancelled, Fld Mononuclear WBCs % Cancelled, Fluid Neutrophils Cancelled, Fluid Lymphocytes Cancelled, Fluid Monocytes Cancelled, Fluid Plasma Cells Cancelled, Fluid Macrophages Cancelled, Fld Mesothelial Cells Cancelled, Fluid Other Cells Cancelled, Fl Pathologist Comment Cancelled, Fluid Comment 2 Cancelled Micro: Microbiology 04/08/21 09:30 Fluid - Other Gram Stain - Final 04/06/21 14:59 Urine, Clean Catch Urine Culture - Preliminary Culture exhibits no growth. Radiography Diagnostic Testing: Radiology Impression Biopsy CT 04/08/21 09:00 IMPRESSION: 1. CT directed drainage of a fluid collection using CT image guidance and image documentation as described. 2. Conscious Sedation protocol utilized with independent monitoring Electronically Signed: Tony Jose MD at 10:07 EDT , Service support , Physical Exam Narrative Physical Exam Const alert, oriented x3 and no apparent distress Constitutional Narrative: Patient appears older than his stated age General Appearance: cooperative, well developed Orientation / Consciousness: awake, oriented to person, oriented to place and oriented to time Nutritional Appearance: cachectic HEENT normocephalic and moist oral mucous membranes Eyes PERRL, EOMs intact bilaterally and conjunctivae normal Neck nuchal rigidity, supple, no JVD, thyroid normal and no carotid bruits General: trachea midline Resp normal respiratory effort, no retractions, no use of accessory muscles and clear to auscultation bilaterally Auscultation: Negative for rales, rhonchi or wheezes Cardio regular rate, regular rhythm, S1 normal heart sound, S2 normal heart sound, no murmurs, no rub and no gallops GI normal to inspection, nondistended, normoactive bowel sounds, soft to palpation, non-tender and non-distended Extremity normal to inspection and no clubbing, cyanosis or edema Skin no rashes or lesions noted and no wounds General Skin Exam: no breakdown Neuro oriented x3, CN's II-XII intact bilaterally, no focal motor deficits and no sensory deficits noted Sensorium / Orientation: awake and alert Speech: speech normal Psych thought process is not normal, patient cannot give reasons for his actions Psych Narrative: Patient affect is flat Assessment & Plan Assessment/Plan (1) Intestinal diverticular abscess: PLAN: 1. Diverticular abscess-again, patient pulled his drainage tube out today but did not give a reason for his action, he will get IM Invanz today, if he remains stable tomorrow, he will be discharged on oral antibiotics. 

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
[2021-04-09] MEDS: oxyCODONE 5 MG Tablet PO (00:29)
[2021-04-09 04:35] VITALS: BP 117/78; PULSE 69; RESP 16; TEMP 36.6; O2SAT 93
[2021-04-09 05:30] LABS: Absolute Lymphocyte Count 1.17 X10^3/uL (0.83-4.51); Absolute Neutrophil Count 7.5 X10^3/uL (2.0-7.7); Basophil# 0.03 X10^3/uL; Basophil% 0.3 % (0-1); Eosinophil# 0.03 X10^3/uL; Eosinophils% 0.3 % (0-5); Hematocrit 42.3 % (40-54); Hemoglobin 12.6 g/dL (13.0-16.5); Lymphocyte # 1.17 X10^3/ul (0.83-4.51); Mean Corp Hgb Conc 29.8 g/dL (32-36); Mean Corpuscular Hgb 26.9 pg (27.0-32.0); Mean Corpuscular Volume 90.2 fL (80-94); Mean Platelet Vol. 10.4 fl (6.2-12.0); Monocyte# 0.87 X10^3/uL; Monocyte% 8.9 % (0-10); NRBC Flagged by Analyzer 0 % (0-5); Neutrophil # 7.54 X10^3/uL (2.7-7.7); Neutrophil % 77.4 % (47-70); Platelet Count 297 K/mm3 (150-450); RBC Distribution Width CV 15.9 % (11.6-14.6); RBC Distribution Width SD 52.6 fl (35.1-43.9); Red Blood Count 4.69 M/mm3 (4.6-6.2); White Blood Count 9.8 K/mm3 (4.4-11.0)
[2021-04-09 07:40] VITALS: O2SAT 96
[2021-04-09 10:33] VITALS: BP 124/75; PULSE 61; RESP 12; TEMP 36.7; O2SAT 96
[2021-04-09] MEDS: Pantoprazole Sodium 40 MG Tablet PO (10:36)
[2021-04-09] MEDS: Atenolol 50 MG Tablet PO (10:36)
[2021-04-09] MEDS: Furosemide 20 MG Tablet PO (10:36)
[2021-04-09] MEDS: Potassium Chloride Oral Tablet 10 MEQ PO (10:36)
--- NOTE | 2021-04-09 12:06 | PCM.DC ---
Discharge Instructions Diet Discharge Diet: No restrictions Activity Discharge Activity: Return to Normal Activity Weight Bearing Status: Full weight bearing Follow Up Care Test Results: Test results from this visit will be discussed in further detail at your follow-up appointment, if applicable. Discharge Plan Admission Admit Date/Time: 04/06/21 18:05 Primary Reason for Your Visit: DIVERTICULAR ABCESS Attending Provider: Darrian Blevins Primary Care Provider: Woo Pineda Consulting Providers: Lenny Robertson Instructions Patient Instructions: ED Procedural Sedation, (Adult) Discharge Orders/Prescriptions Prescriptions: Continued tizanidine 4 mg tablet 4 mg PO TID PRN (Reason: Spasms) RF: 0 ipratropium-albuterol 20-100 mcg/actuation mist 1 puff INHALATION DAILY 90 Days RF: 0 albuterol sulfate 2.5 mg /3 mL (0.083 %) solution for nebulization 1.25 mg INHALATION Q4H PRN (Reason: Shortness Of Breath) RF: 0 Repatha SureClick 140 mg/mL pen injector 140 mg SC Q2W RF: 0 zolpidem 10 MG tablet 10 mg PO QHS RF: 0 hydrocodone-acetaminophen 1 EACH tablet 1 tab PO 4X/DAY PRN (Reason: Pain) RF: 0 apixaban 5 MG tablet 5 mg PO BID Qty: 0 RF: 0 Hold Instructions: Resume on 03/29/21. May resume in 1 week per surgery recommendation. potassium chloride 10 mEq Capsule, Extended Release 10 meq PO DAILY RF: 0 furosemide 20 mg Tablet 20 mg PO DAILY RF: 0 pantoprazole 40 mg Tablet,Delayed Release (Dr/Ec) 40 mg PO DAILY 30 Days Qty: 30 RF: 0 ondansetron HCl [Zofran] 4 mg tablet 4 mg PO Q8H PRN (Reason: nausea and vomiting) Qty: 10 RF: 0 alprazolam 1 mg tablet 1 mg PO BID RF: 0 atenolol 50 mg tablet 50 mg PO DAILY RF: 0 amoxicillin-pot clavulanate 875-125 mg Tablet 1 tab PO BID 7 Days Qty: 14 RF: 0 Referrals / Follow Up: Woo Pineda MD [Primary Care Provider] - Disposition Disposition (needs filled in before D/C Order can be placed): Home, Self Care
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
[2021-04-09 14:18] VITALS: BP 128/72; PULSE 66; RESP 12; TEMP 37; O2SAT 94
--- NOTE | 2021-04-09 14:40 | CASEMGMT ---
Pt declines HHC at this time but is agreeable to OP therapy at [facility] and script faxed to them at this time. Pt voices no further questions/concerns/needs. Geovany DELATORRE CM
--- NOTE | 2021-04-10 17:20 | DS.PCM_ITS ---
Providers Date of Admission: 04/06/21 Date of Discharge: 04/09/21 Primary Care Physician: Dr. Woo Pineda MD Consultations 04/06/21 18:10 Consult: General Surgery Routine Consulting Provider: Lenny Robertson Reason for Consult: diverticular abcess EMERGENT Consult: No MD Notified: Yes Date Notified: 04/06/21 Time Notified: 18:11 Method of Notification: Verbal Method of Consult:: In-Person Reason For Visit: SEPSIS, DIVERTICULAR ABCESS Diagnosis Discharge Diagnosis (1) Intestinal diverticular abscess: Status: Acute Code(s): K63.0 - Abscess of intestine Plan: 1. Diverticular abscess with E. coli #2 atherosclerotic heart disease #3 severe protein and caloric malnutrition #4 personality disorder-unspecified #5 coronary artery disease #6 ischemic cardiomyopathy #7 medical noncompliance secondary to psychiatric issues Sepsis was ruled out Medications at Discharge Home Medications zolpidem 10 mg PO QHS 05/15/16 hydrocodone-acetaminophen 1 tab PO 4X/DAY PRN 09/17/17 apixaban 5 mg PO BID #0 09/18/17 albuterol sulfate 1.25 mg INHALATION Q4H PRN 01/28/19 evolocumab 140 mg/mL subcutaneous pen injector 140 mg SC Q2W 01/28/19 ipratropium 20 mcg-albuterol 100 mcg/actuation mist for inhalation 1 puff INHALATION DAILY 90 Days g 01/28/19 tizanidine 4 mg tablet 4 mg PO TID PRN 01/28/19 furosemide 20 mg PO DAILY 03/20/21 potassium chloride 10 meq PO DAILY 03/20/21 ondansetron HCl [Zofran] 4 mg PO Q8H PRN #10 tab 03/22/21 pantoprazole 40 mg PO DAILY 30 Days #30 tab 03/22/21 alprazolam 1 mg PO BID 04/06/21 atenolol 50 mg PO DAILY 04/06/21 amoxicillin-pot clavulanate 1 tab PO BID 7 Days #14 tab 04/09/21 Hospital Course Operations None Procedures - (Percutaneous drainage and placement of catheter and diverticular abscess via CT guided approach) Summary of Care Provided Minutes Spent on Discharge: 34 Hospital Course: This 70-year-old white male was seen in the emergency room at [facility] with complaints of generalized weakness and fatigue. He stated that he had signed out AMA from [facility] earlier that day where he was being treated for cardiac issues and problems related to a recent diverticular abscess. Work-up in the emergency room included CT scan of the abdomen and pelvis which showed evidence of diverticular abscess, patient was admitted to PCU and placed on IV antibiotics, permission was obtained from the patient for percutaneous drainage of the abscess under CT guidance along with placement of a drain. This was performed on 04/08/2021, unfortunately, shortly after the drain was placed and the patient was back in his room on PCU, he pulled the drain out and pulled his IV out. IV was not restarted and he was given IM Invanz and reevaluated on 04/09/2021. Patient requested discharge home rather than go to a senior care facility. He was seen and examined on 04/09/2021: On examination he appeared in good health and spirits. Vital signs as documented. Skin warm and dry and without overt rashes. Neck without JVD, neck was supple, trachea midline, thyroid was normal. Lungs clear bilaterally, normal air movement was noted. Heart exam notable for regular rhythm, normal sounds and absence of murmurs, rubs or gallops. Abdomen unremarkable and without evidence of organomegaly, masses, or abdominal aortic enlargement. Bowel sounds are present, abdomen is not distended. Extremities nonedematous, no cyanosis was noted, no clubbing was noted. Neuro: Cranial nerves II through XII are grossly intact, no focal motor deficits were noted, sensation to light touch and pinprick intact, motor exam 5/5 throughout. Psych: Patient is alert and oriented x3, he does not appear anxious or depressed, he does not appear agitated. Patient was felt to be stable for discharge on 04/09/2021, the culture results from his diverticular abscess drainage was not available at the time of discharge, it resulted later in showing E. coli that was resistant to the antibiotic the patient was discharged on, I made several attempts to contact the patient-his telephone did not allow voice messages and he did not answer his phone, I placed a call to his significant other-her voicemail was not set up on her phone and she did not answer her phone, and finally I placed a call into the patient's daughter who did not answer her phone and her phone was not set up for voicemail. Weight / BMI Weight Weight: 72.5 kg Body Mass Index (BMI) 26.6 ABG / Lab / Microbiology Data Result Diagrams: 04/09/21 05:04 04/07/21 05:50 Microbiology: Microbiology 04/08/21 09:30 Fluid - Other Gram Stain - Final 04/08/21 09:30 Fluid - Other Body Fluid Culture - Final Escherichia coli 04/06/21 14:59 Urine, Clean Catch Urine Culture - Final Culture exhibits no growth. D/C Instructions Discharge Diet: No restrictions Weight Bearing Status: Full weight bearing Meaningful Use Info Meaningful Use Diagnoses (Choose all that apply): None applicable Discharge Plan Admission Admit Date/Time: 04/06/21 18:05 Primary Reason for Your Visit: DIVERTICULAR ABCESS Attending Provider: Darrian Blevins Primary Care Provider: oWo Pineda Consulting Providers: Lenny Robertson Instructions Patient Instructions: ED Procedural Sedation, (Adult) Discharge Orders/Prescriptions Prescriptions: Continued tizanidine 4 mg tablet 4 mg PO TID PRN (Reason: Spasms) RF: 0 ipratropium-albuterol 20-100 mcg/actuation mist 1 puff INHALATION DAILY 90 Days RF: 0 albuterol sulfate 2.5 mg /3 mL (0.083 %) solution for nebulization 1.25 mg INHALATION Q4H PRN (Reason: Shortness Of Breath) RF: 0 Repatha SureClick 140 mg/mL pen injector 140 mg SC Q2W RF: 0 zolpidem 10 MG tablet 10 mg PO QHS RF: 0 hydrocodone-acetaminophen 1 EACH tablet 1 tab PO 4X/DAY PRN (Reason: Pain) RF: 0 apixaban 5 MG tablet 5 mg PO BID Qty: 0 RF: 0 Hold Instructions: Resume on 03/29/21. May resume in 1 week per surgery recommendation. potassium chloride 10 mEq Capsule, Extended Release 10 meq PO DAILY RF: 0 furosemide 20 mg Tablet 20 mg PO DAILY RF: 0 pantoprazole 40 mg Tablet,Delayed Release (Dr/Ec) 40 mg PO DAILY 30 Days Qty: 30 RF: 0 ondansetron HCl [Zofran] 4 mg tablet 4 mg PO Q8H PRN (Reason: nausea and vomiting) Qty: 10 RF: 0 alprazolam 1 mg tablet 1 mg PO BID RF: 0 atenolol 50 mg tablet 50 mg PO DAILY RF: 0 amoxicillin-pot clavulanate 875-125 mg Tablet 1 tab PO BID 7 Days Qty: 14 RF: 0 Referrals / Follow Up: Woo Pineda MD [Primary Care Provider] - 04/13/21 9:00 am Disposition Disposition (needs filled in before D/C Order can be placed): Home, Self Care Charges/Coding Visit Charges Inpatient E&M: 79017 Disch Hosp
--- NOTE | 2021-04-12 13:54 | CASEMGMT ---
RN CM Discharge Follow-up Phone Call: RAJESH: 13 Strata: 3 Call Date: 04/12/21 Discharge Date: 04/09/21 Time of Call: 1355 Duration: 1 min Admitting Diagnosis: Sepsis, Diverticular abscess RN CM attempted to complete follow-up phone call after recent hospitalization. No answer, voicemail box full and unable to leave message.
== END 2021-04-09 14:39 | disposition home or self-care (01) | DRG 391 ==
LOC: ED 16:35 → PCU 18:49
PROVIDERS: Admitting Provider Internal Medicine; Emergency Provider Student in an Organized Health Care Education/Training Program; PCP Family Medicine; Visit Provider Internal Medicine
DX: K57.20 Diverticulitis of large intestine with perforation and abscess without bleeding (principal); E43 Unspecified severe protein-calorie malnutrition; I21.4 Non-ST elevation (NSTEMI) myocardial infarction; Z16.29 Resistance to other single specified antibiotic; B96.20 Unspecified Escherichia coli [E. coli] as the cause of diseases classified elsewhere; I25.10 Atherosclerotic heart disease of native coronary artery without angina pectoris; F60.9 Personality disorder, unspecified; I48.0 Paroxysmal atrial fibrillation; I10 Essential (primary) hypertension; J44.9 Chronic obstructive pulmonary disease, unspecified; I25.5 Ischemic cardiomyopathy; G89.29 Other chronic pain; F32.9 Major depressive disorder, single episode, unspecified; F41.9 Anxiety disorder, unspecified; F17.210 Nicotine dependence, cigarettes, uncomplicated; R29.6 Repeated falls; Z91.19 Patient's noncompliance with other medical treatment and regimen; Z79.01 Long term (current) use of anticoagulants; Z79.899 Other long term (current) drug therapy
CPT/HCPCS: 36415; 70450; 71045; 74177; 77012; 80053; 81001; 83605; 84484; 85025; 85610; 85730; 87040; 87070; 87075; 87077; 87086; 87186; 87205; 93005; 97110; 97116; 97162; 97166; 97535; 97802; 99156; 99285; 99406; J2185; J7030; J7040; Q9967; A4216

== ENCOUNTER 2021-04-24 10:03 | Emergency (ER) | payer MEDICARE, SELFPAY ==
[2021-04-08 08:54] VITALS: BMI 26.6
[2021-04-24 10:06] VITALS: BP 100/69; PULSE 107; RESP 28; TEMP 36.5; O2SAT 95; BMI 26.2
--- NOTE | 2021-04-24 10:31 | CT_ITS ---
STUDY: CT BRAIN WITHOUT CONTRAST REASON FOR EXAM: Male, 70 years old. Off balance post fall 3 weeks ago RADIATION DOSAGE (If Supplied By Facility): CTDIvol = ( 44.99 ) mGy, DLP = ( 1693.46 ) mGycm TECHNIQUE: Transaxial CT imaging of the brain was performed without administration of intravenous contrast material. Individualized dose optimization techniques were used for this CT. COMPARISON: 04/06/2021 FINDINGS: Normal soft tissue structures. Normal calvarium. There is mild cerebral atrophy with widening of the extra-axial spaces and ventricular dilatation. There are areas of decreased attenuation within the white matter tracts of the supratentorial brain, consistent with microvascular disease changes. Normal basal ganglia and thalami. Normal brainstem. Normal cerebellum. There is no intracranial hemorrhage. There are no findings of an acute ischemic infarction. Normal visualized paranasal sinuses. CT/Brain/Head without Contrast IMPRESSION: Chronic involutional changes of the brain. Electronically Signed: Travon Barnes MD at 11:33 EDT Tel , Service support ,
--- NOTE | 2021-04-24 10:31 | EKG12_ITS ---
Test Reason : CP Blood Pressure : / mmHG Vent. Rate : 103 BPM Atrial Rate : 102 BPM P-R Int : 000 ms QRS Dur : 112 ms QT Int : 384 ms P-R-T Axes : 000 041 155 degrees QTc Int : 503 ms Atrial fibrillation Inferior infarct , age undetermined Abnormal ECG Confirmed by DOT DURAND, NOLA ([id number]), editor sound YARON BOYCE ([id number]) on 04/27/2021 9:40:56 AM Referred By: DR. DURHAM Confirmed By:NOLA CHRIS MD
--- NOTE | 2021-04-24 10:32 | ED.RN ---
pt reports balance is not good since fall. reqeusting to go to rehab
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
[2021-04-24 10:56] LABS: Absolute Lymphocyte Count 1.32 X10^3/uL (0.83-4.51); Absolute Neutrophil Count 3.8 X10^3/uL (2.0-7.7); Basophil# 0.03 X10^3/uL; Basophil% 0.5 % (0-1); Eosinophil# 0.04 X10^3/uL; Eosinophils% 0.7 % (0-5); Hematocrit 38.4 % (40-54); Hemoglobin 11.5 g/dL (13.0-16.5); Lymphocyte # 1.32 X10^3/ul (0.83-4.51); Lymphocyte % 22.7 % (19-41); Mean Corp Hgb Conc 29.9 g/dL (32-36); Mean Corpuscular Hgb 27.1 pg (27.0-32.0); Mean Corpuscular Volume 90.6 fL (80-94); Mean Platelet Vol. 10.4 fl (6.2-12.0); Monocyte# 0.56 X10^3/uL; Monocyte% 9.6 % (0-10); NRBC Flagged by Analyzer 0 % (0-5); Neutrophil # 3.82 X10^3/uL (2.7-7.7); Neutrophil % 65.6 % (47-70); Platelet Count 141 K/mm3 (150-450); RBC Distribution Width CV 16.6 % (11.6-14.6); RBC Distribution Width SD 54.5 fl (35.1-43.9); Red Blood Count 4.24 M/mm3 (4.6-6.2); White Blood Count 5.8 K/mm3 (4.4-11.0)
--- NOTE | 2021-04-24 11:20 | RAD_ITS ---
STUDY: X-RAY CHEST REASON FOR EXAM: Male, 70 years old. Fall, weakness TECHNIQUE: Single AP portable view of the chest. COMPARISON: 04/06/2021 FINDINGS: Status post median sternotomy. The lungs are clear and expanded. There is no demonstrated pleural abnormality. There is moderate cardiac enlargement. Normal mediastinum and edson. Normal visualized pulmonary arteries. Normal visualized aortic arch and descending thoracic aorta. Normal visualized thoracic spine. Normal visualized ribs, clavicles, and shoulders. There is no demonstrated abnormality of the visualized soft tissue structures of the upper abdomen. RAD/Chest 1 View (Portable) IMPRESSION: No active disease. Electronically Signed: Travon Barnes MD at 12:00 EDT Tel , Service support ,
[2021-04-24 11:21] LABS: ALB/GLOB Ratio 0.6 RATIO (0.9-2.4); AST(SGOT) 24 U/L (15-37); Alanine Aminotransfer ALT/SGPT 27 U/L (16-61); Albumin, Serum 2.3 g/dL (3.2-5.0); Alkaline Phosphatase 94 U/L (45-117); Anion Gap 4 (5-15); BUN 16 mg/dL (7-18); BUN/Creat Ratio 16.1 RATIO (10-20); Calcium,Total 8.5 mg/dL (8.5-10.1); Chloride 104 mmol/L (98-107); EST Glomerular Filtration Rate 79 mL/min (>60); Est Glom Filt Rate - Afr Amer 95 mL/min (>60); Estimated Creatinine Clearance 63.35 ml/min; Globulin 3.9 g/dL (2.2-4.2); Glucose 99 mg/dL (74-106); Potassium 4.3 mmol/L (3.5-5.1); Protein, Total 6.2 g/dL (6.4-8.2); Sodium Level 135 mmol/L (136-145); Troponin-I HS 24.7 pg/mL (3.0-78.5)
[2021-04-24 12:04] VITALS: BP 105/59; PULSE 104; RESP 18; O2SAT 95
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
[2021-04-24 15:27] VITALS: BP 125/85; PULSE 81; RESP 18; O2SAT 95
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
== END 2021-04-24 15:27 | disposition home or self-care (01) ==
PROVIDERS: Emergency Provider Emergency Medicine; PCP Family Medicine
DX: R53.1 Weakness (principal); I25.10 Atherosclerotic heart disease of native coronary artery without angina pectoris; I25.810 Atherosclerosis of coronary artery bypass graft(s) without angina pectoris; I25.2 Old myocardial infarction; I10 Essential (primary) hypertension; J44.9 Chronic obstructive pulmonary disease, unspecified; E78.5 Hyperlipidemia, unspecified; K21.9 Gastro-esophageal reflux disease without esophagitis; Z95.1 Presence of aortocoronary bypass graft; Z95.5 Presence of coronary angioplasty implant and graft; Z79.899 Other long term (current) drug therapy; Z87.891 Personal history of nicotine dependence
CPT/HCPCS: 70450; 71045; 80053; 84484; 85025; 93005; 99285

== ENCOUNTER 2021-04-25 11:56 | Inpatient (IN) | payer MEDICARE, SELFPAY ==
[2021-04-24 10:06] VITALS: BMI 26.2
[2021-04-25] VITALS (9 sets, daily range): BP systolic 104–116; BP diastolic 77–94; PULSE 104–131; RESP 18–28; TEMP 36.3–37.1; O2SAT 94–100; BMI 25.5
--- NOTE | 2021-04-25 12:45 | EX.ED.DYSGE1 ---
HPI History of Present Illness Chief Complaint: Weakness Informant: patient Narrative Narrative: Patient is a 70-year-old male who presents to the emergency department for generalized weakness. Patient was seen for the same complaint yesterday. Yesterday he initially wanted to go to a rehab facility but throughout the course of the emergency department stay he change his mind and wanted to go home. Patient now returning stating that he is not doing well at home and will do what ever has to take to get him better. He is denying any specific complaints. He denies any headache, vision change. No chest pain, shortness of breath. No recent illness including nausea/vomiting or diarrhea. No urinary symptoms. Apparently Adult Protective Services is following the patient. [facility] Medical History Atherosclerosis of coronary artery bypass graft without angina pectoris Atherosclerosis of coronary artery of [place] heart without angina pectoris Gaines's esophagus COPD (chronic obstructive pulmonary disease) Diverticulosis Essential hypertension GERD (gastroesophageal reflux disease) Hearing loss, left Hearing loss, right History of DVT (deep vein thrombosis) History of pulmonary embolism Hyperlipidemia Insomnia Myocardial infarct Palpitations Perforation of sigmoid colon due to diverticulitis Severe low back pain Sleep apnea Smoker Vitamin D deficiency Home Medications hydrocodone-acetaminophen 1 tab PO 4X/DAY PRN 09/17/17 [History Last Taken 04/05/21] albuterol sulfate 1.25 mg INHALATION Q4H PRN 01/28/19 [History Last Taken Unknown] ipratropium 20 mcg-albuterol 100 mcg/actuation mist for inhalation 1 puff INHALATION DAILY 90 Days g 01/28/19 [History Last Taken Unknown] tizanidine 4 mg tablet 4 mg PO TID PRN 01/28/19 [History Last Taken Unknown] potassium chloride 10 meq PO DAILY 03/20/21 [History Last Taken 03/23/21] alprazolam 1 mg PO BID 04/06/21 [History Last Taken 04/06/21] atenolol 50 mg PO DAILY 04/06/21 [History Last Taken Unknown] amoxicillin-pot clavulanate 1 tab PO BID 7 Days #14 tab 04/09/21 [Rx Last Taken 04/06/21] omeprazole 20 mg PO DAILY 04/24/21 [History Last Taken Unknown] Allergy/AdvReac Type Severity Reaction Status Date / Time cetirizine Allergy Severe chest Verified 04/25/21 12:04 pain, irregular heart beat acyclovir [From Zovirax] Allergy Intermediate GI upset Verified 04/25/21 12:04 Cephalosporins Allergy Intermediate abdominal Verified 04/25/21 12:04 pain Zzgrkmv-Cei-Tom Reductase Allergy Intermediate increased Verified 04/25/21 12:04 Inhibitor weakness ciprofloxacin [From Cipro] AdvReac Diarrhea Verified 04/25/21 12:04 doxycycline AdvReac Diarrhea Verified 04/25/21 12:04 Family History Mother Breast cancer Father Colon cancer Cancer prostate Surgical History History of cataract removal with insertion of prosthetic lens History of coronary artery bypass graft Presence of stent in coronary artery Social History Smoking Status: Former smoker alcohol intake: current alcohol intake frequency: holidays/special occasions only substance use type: does not use caffeine: Yes Type: coffee Number of servings: 1 ROS ROS ED Constitutional Constitutional ED: Denies chills or fever(s) Eyes Eyes: Denies change in vision ENT ENT ED: Denies rhinorrhea Cardiovascular Cardiovascular: Denies chest pain or palpitations Respiratory/Chest Respiratory/Chest: Denies cough, dyspnea or dyspnea on exertion Gastrointestinal Gastrointestinal: Denies abdominal pain, diarrhea, nausea or vomiting Genitourinary Genitourinary ED: Denies dysuria, hematuria or urinary frequency Musculoskeletal Musculoskeletal: Denies back pain or neck pain Integumentary Denies rash Neurologic Neurologic: Denies dizziness or headache(s) EXAM Physical Exam Const Vital Signs: 04/25/21 11:58 04/25/21 12:02 04/25/21 14:16 Temperature 97.9 F Temperature Source Temporal Pulse Rate 112 H 118 H Respiratory Rate 24 H 23 H Respiratory Effort Normal Non-Labored Respiratory Pattern Normal Blood Pressure 104/77 111/80 Blood Pressure Mean 86 90 Pulse Ox 97 95 Oxygen Delivery Method Room Air Room Air 04/25/21 15:19 Temperature 98.7 F Temperature Source Temporal Pulse Rate 110 H Respiratory Rate 18 Respiratory Effort Respiratory Pattern Blood Pressure 111/80 Blood Pressure Mean 90 Pulse Ox 95 Oxygen Delivery Method Room Air Positive well nourished and well developed General Appearance ED: well developed and NAD HEENT Reports normocephalic, head/scalp atraumatic and moist mucous membranes Eyes PERRL and EOMs intact bilaterally Neck supple Resp normal respiratory effort and clear to auscultation bilaterally Auscultation: Negative for rales, rhonchi or wheezes Cardio no murmurs Rate: tachycardic Rhythm: abnormal rhythm GI normal to inspection, nondistended, normoactive bowel sounds and non-tender Palpation: soft; Negative for guarding or rebound tenderness present Extremity normal to inspection General Extremety ED: Negative for edema or tenderness General Extremity: Negative for edema Neuro Sensorium / Orientation: alert Motor Exam: strength 5/5 throughout Psych mental status grossly normal Skin no rashes or lesions noted MDM MDM MDM Narrative Medical decision making narrative: Patient presents to the emergency department for generalized weakness. He feels like he is not doing well at home. He is requesting to go to a rehab facility. On arrival patient is in atrial fibrillation which she is in chronically. Is asymptomatic with this. We will give a dose of his atenolol as his rate is mildly tachycardic. Will check basic lab work. Patient's lab work has been repeated here which does not reveal a significant acute abnormality. Patient's heart rate has remained mildly elevated. At this time will bring into the hospital for potential placement. Patient otherwise has remained stable throughout ED stay. He understands and is agreeable with this plan. Lab Data Labs: Laboratory Results - last 24 hr 04/25/21 04/25/21 13:55 13:55 WBC 9.1 RBC 4.67 Hgb 12.8 L Hct 40.6 MCV 86.9 MCH 27.4 MCHC 31.5 L D RDW Std Deviation 52.8 H RDW Coeff of Thierno 16.9 H Plt Count 131 L MPV 9.7 Immature Gran % (Auto) 0.900 Neut % (Auto) 77.3 H Lymph % (Auto) 13.[address] [place] % (Auto) 7.9 Eos % (Auto) 0.2 Baso % (Auto) 0.3 Absolute Neuts (auto) 7.0 Absolute Lymphs (auto) 1.22 Nucleated RBC % 0 Sodium 136 Potassium 4.6 Chloride 103 Carbon Dioxide 24.0 Anion Gap 9 BUN 15 Creatinine 1.05 Estim Creat Clear Calc 60.33 Est GFR (MDRD) Af Amer 89 Est GFR (MDRD) Non-Af 74 BUN/Creatinine Ratio 14.3 Glucose 101 Calcium 9.0 Discharge Plan Triage Chief Complaint: Weakness ED Provider: Jose Rizvi Dx/Rx/DC Orders Primary Care Provider: Woo Pineda
[2021-04-25 14:00] LABS: Absolute Lymphocyte Count 1.22 X10^3/uL (0.83-4.51); Basophil# 0.03 X10^3/uL; Basophil% 0.3 % (0-1); Eosinophil# 0.02 X10^3/uL; Eosinophils% 0.2 % (0-5); Hematocrit 40.6 % (40-54); Hemoglobin 12.8 g/dL (13.0-16.5); Lymphocyte # 1.22 X10^3/ul (0.83-4.51); Lymphocyte % 13.4 % (19-41); Mean Corp Hgb Conc 31.5 g/dL (32-36); Mean Corpuscular Hgb 27.4 pg (27.0-32.0); Mean Corpuscular Volume 86.9 fL (80-94); Mean Platelet Vol. 9.7 fl (6.2-12.0); Monocyte# 0.72 X10^3/uL; Monocyte% 7.9 % (0-10); NRBC Flagged by Analyzer 0 % (0-5); Neutrophil # 7.02 X10^3/uL (2.7-7.7); Neutrophil % 77.3 % (47-70); Platelet Count 131 K/mm3 (150-450); RBC Distribution Width CV 16.9 % (11.6-14.6); RBC Distribution Width SD 52.8 fl (35.1-43.9); Red Blood Count 4.67 M/mm3 (4.6-6.2); White Blood Count 9.1 K/mm3 (4.4-11.0)
[2021-04-25] MEDS: Atenolol 50 MG Tablet PO (14:15)
[2021-04-25 14:24] LABS: Anion Gap 9 (5-15); BUN 15 mg/dL (7-18); BUN/Creat Ratio 14.3 RATIO (10-20); Chloride 103 mmol/L (98-107); Creatinine, Serum 1.05 mg/dL (0.70-1.30); EST Glomerular Filtration Rate 74 mL/min (>60); Est Glom Filt Rate - Afr Amer 89 mL/min (>60); Estimated Creatinine Clearance 60.33 ml/min; Glucose 101 mg/dL (74-106); Potassium 4.6 mmol/L (3.5-5.1); Sodium Level 136 mmol/L (136-145)
--- NOTE | 2021-04-25 15:41 | PCM.HP.STD ---
Documented by User: Janet Hall NP, [employer] 04/25/21 15:58 HPI - General General Date of Admission: 04/25/21 HPI Narrative ADRIANNE ALVAREZ, is a 70 M who presents to the emergency room due to weakness, debility. Patient has multiple bruises and abrasions. He denies falls at home. He is a poor historian. He is intermittently confused. Oriented to self, time and place however otherwise is a poor informant and appears confused. States he came to the hospital due to brain tumor. Per ER nursing staff, patient was in the emergency room yesterday and declined rehab. He was discharged home where he lives with his girlfriend. Adult Protective Services was notified at discharge. He apparently lives with his girlfriend who is no longer able to manage him at home. Patient denies fever, chills, cough, shortness of breath, nausea, vomiting, diarrhea. He denies any specific complaints. He has a past medical history of CAD with history of CABG/PCI, CHF, history of VTE, hypertension, hyperlipidemia, anxiety, fusiform thoracic aneurysm, recent sigmoid diverticulitis with perforation. [facility] Medical History (Reviewed 04/25/21 @ 15:45 by Janet Hall [employer]IC GOVERNOR [employer]SEMBLER, [employer] G[employer]ERNOR [employer]) Atherosclerosis of coronary artery bypass graft without angina pectoris Atherosclerosis of coronary artery of [place] heart without angina pectoris Gaines's esophagus COPD (chronic obstructive pulmonary disease) Diverticulosis Essential hypertension GERD (gastroesophageal reflux disease) Hearing loss, left Hearing loss, right History of DVT (deep vein thrombosis) History of pulmonary embolism Hyperlipidemia Insomnia Myocardial infarct Palpitations Perforation of sigmoid colon due to diverticulitis Severe low back pain Sleep apnea Smoker Vitamin D deficiency Home Medications hydrocodone-acetaminophen 1 tab PO 4X/DAY PRN 09/17/17 [History Last Taken 04/05/21] albuterol sulfate 1.25 mg INHALATION Q4H PRN 01/28/19 [History Last Taken Unknown] ipratropium 20 mcg-albuterol 100 mcg/actuation mist for inhalation 1 puff INHALATION DAILY 90 Days g 01/28/19 [History Last Taken Unknown] tizanidine 4 mg tablet 4 mg PO TID PRN 01/28/19 [History Last Taken Unknown] potassium chloride 10 meq PO DAILY 03/20/21 [History Last Taken 03/23/21] alprazolam 1 mg PO BID 04/06/21 [History Last Taken 04/06/21] atenolol 50 mg PO DAILY 04/06/21 [History Last Taken Unknown] amoxicillin-pot clavulanate 1 tab PO BID 7 Days #14 tab 04/09/21 [Rx Last Taken 04/06/21] omeprazole 20 mg PO DAILY 04/24/21 [History Last Taken Unknown] Allergy/AdvReac Type Severity Reaction Status Date / Time cetirizine Allergy Severe chest Verified 04/25/21 12:04 pain, irregular heart beat acyclovir [From Zovirax] Allergy Intermediate GI upset Verified 04/25/21 12:04 Cephalosporins Allergy Intermediate abdominal Verified 04/25/21 12:04 pain Aoaquzm-Eew-Ilk Reductase Allergy Intermediate increased Verified 04/25/21 12:04 Inhibitor weakness ciprofloxacin [From Cipro] AdvReac Diarrhea Verified 04/25/21 12:04 doxycycline AdvReac Diarrhea Verified 04/25/21 12:04 Family History Mother Breast cancer Father Colon cancer Cancer prostate Surgical History History of cataract removal with insertion of prosthetic lens History of coronary artery bypass graft Presence of stent in coronary artery Social History Smoking Status: Former smoker alcohol intake: current alcohol intake frequency: holidays/special occasions only substance use type: does not use caffeine: Yes Type: coffee Number of servings: 1 ROS Constitutional Constitutional: Reports weakness; Denies change in weight, chills, fatigue or fever(s) Cardiovascular Cardiovascular: Denies chest pain, edema, lightheadedness, palpitations or syncope Respiratory/Chest Respiratory/Chest: Denies cough, dyspnea, productive cough, shortness of breath at rest, shortness of breath with exertion or wheezing Gastrointestinal Gastrointestinal: Denies abdominal pain, constipation, diarrhea, nausea or vomiting Genitourinary Genitourinary: Denies burning urination, difficulty urinating, dysuria, hematuria, urinary frequency, urinary incontinence or urinary urgency Musculoskeletal Musculoskeletal: Denies back pain, joint pain or muscle weakness Integumentary Integumentary: Denies erythema, lesions, rash or wounds Neurologic Neurologic: Denies abnormal speech, confusion, dizziness, focal weakness, numbness, paresthesias, seizure-like activity or syncope Psychiatric Psychiatric: Denies anxiety or depression Hematologic/Lymphatic Hematologic/Lymphatic: Denies anemia, easy bleeding or easy bruising Allergic/Immunologic Allergic/Immunologic: Denies hives or asthma Vital Signs Vital Signs Vital Signs: 04/25/21 11:58 04/25/21 12:02 04/25/21 14:16 Temperature 97.9 F Temperature Source Temporal Pulse Rate 112 H 118 H Respiratory Rate 24 H 23 H Respiratory Effort Normal Non-Labored Respiratory Pattern Normal Blood Pressure 104/77 111/80 Blood Pressure Mean 86 90 Pulse Ox 97 95 Oxygen Delivery Method Room Air Room Air 04/25/21 15:19 Temperature 98.7 F Temperature Source Temporal Pulse Rate 110 H Respiratory Rate 18 Respiratory Effort Respiratory Pattern Blood Pressure 111/80 Blood Pressure Mean 90 Pulse Ox 95 Oxygen Delivery Method Room Air Weight Weight: 163 lb 2.273 oz Body Mass Index (BMI) 25.5 Physical Exam Const alert and no apparent distress Orientation / Consciousness: oriented to person, oriented to place and oriented to time Nutritional Appearance: other Other Details: Unkempt, intermittently confused HEENT normocephalic and moist oral mucous membranes Eyes PERRL, EOMs intact bilaterally and conjunctivae normal Neck no lymphadenopathy Resp normal respiratory effort and clear to auscultation bilaterally Cardio regular rate, regular rhythm and no murmurs Peripheral Pulses: pulses 2+ throughout GI normal to inspection, nondistended, normoactive bowel sounds, non-tender and non-distended Extremity normal to inspection Skin no rashes or lesions noted Skin Narrative: Numerous scattered abrasions and ecchymosis. Lesions: no lesions Rashes: no rashes Trauma: no lacerations or abrasions Neuro CN's II-XII intact bilaterally, no focal motor deficits, no sensory deficits noted and deep tendon reflexes 2+ bilaterally Psych mental status grossly normal and affect normal Results Lab / Micro Data Result Diagrams: 04/25/21 13:55 04/25/21 13:55 Labs: Laboratory Results - last 24 hr 04/25/21 13:55: WBC 9.1, RBC 4.67, Hgb 12.8 L, Hct 40.6, MCV 86.9, MCH 27.4, MCHC 31.5 L D, RDW Std Deviation 52.8 H, RDW Coeff of Thierno 16.9 H, Plt Count 131 L, MPV 9.7, Immature Gran % (Auto) 0.900, Neut % (Auto) 77.3 H, Lymph % (Auto) 13.4 L, [place]ke[place] % (Auto) 7.9, Eos % (Auto) 0.2, Baso % (Auto) 0.3, Absolute Neuts (auto) 7.0, Absolute Lymphs (auto) 1.22, Nucleated RBC % 0 04/25/21 13:55: Sodium 136, Potassium 4.6, Chloride 103, Carbon Dioxide 24.0, Anion Gap 9, BUN 15, Creatinine 1.05, Estim Creat Clear Calc 60.33, Est GFR (MDRD) Af Amer 89, Est GFR (MDRD) Non-Af 74, BUN/Creatinine Ratio 14.3, Glucose 101, Calcium 9.0 Assessment & Plan Assessment/Plan (1) Generalized weakness: PLAN: 1. Debility, failure to thrive-recent admission declined SNF at discharge. Now amendable. PT/OT. Case management consult. 2. Recent sigmoid diverticulitis with perforation-requiring percutaneous drainage. Completed course of antibiotics. 3. Paroxysmal atrial fibrillation-on atenolol. Not on anticoagulation. Previously on Eliquis which was held due to recent perforated diverticulitis. Will resume Eliquis. 4. CAD with history of CABG/PCI/recent NSTEMI-continue medical management. 5. Chronic heart failure with reduced ejection fraction-echocardiogram demonstrates an EF of 40 to 45%, moderate diffuse aortic valve thickening. Continue home Lasix regimen. No acute failure. 6. History of VTE-Eliquis. 7. Hypertension-stable, continue atenolol. 8. Hyperlipidemia-does not appear to be on statin. 9. 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 During recent admission, patient noted to have erratic and impulsive behavior. 10. Fusiform thoracic aneurysm-incidental based on prior imaging. Outpatient follow-up. 11. Severe protein calorie malnutrition-dietitian consult. 12. Chronic COPD-as needed albuterol aerosol. DVT prophylaxis-Eliquis CODE STATUS: Patient does not have POA. He is intermittently confused however clearly states he is amendable to CPR and resuscitation efforts. Patient will remain full code. This patient was seen by ZITA Schwab under the supervision of Dr. Moore. Documented by User: Dr. Grisel Moore MD 04/25/21 16:59 HPI - General General Date of Admission: 04/25/21 [facility] Medical History Atherosclerosis of coronary artery bypass graft without angina pectoris Atherosclerosis of coronary artery of [place] heart without angina pectoris Gaines's esophagus COPD (chronic obstructive pulmonary disease) Diverticulosis Essential hypertension GERD (gastroesophageal reflux disease) Hearing loss, left Hearing loss, right History of DVT (deep vein thrombosis) History of pulmonary embolism Hyperlipidemia Insomnia Myocardial infarct Palpitations Perforation of sigmoid colon due to diverticulitis Severe low back pain Sleep apnea Smoker Vitamin D deficiency Home Medications hydrocodone-acetaminophen 1 tab PO 4X/DAY PRN 09/17/17 [History Last Taken 04/05/21] albuterol sulfate 1.25 mg INHALATION Q4H PRN 01/28/19 [History Last Taken Unknown] ipratropium 20 mcg-albuterol 100 mcg/actuation mist for inhalation 1 puff INHALATION DAILY 90 Days g 01/28/19 [History Last Taken Unknown] tizanidine 4 mg tablet 4 mg PO TID PRN 01/28/19 [History Last Taken Unknown] potassium chloride 10 meq PO DAILY 03/20/21 [History Last Taken 03/23/21] alprazolam 1 mg PO BID 04/06/21 [History Last Taken 04/06/21] atenolol 50 mg PO DAILY 04/06/21 [History Last Taken Unknown] amoxicillin-pot clavulanate 1 tab PO BID 7 Days #14 tab 04/09/21 [Rx Last Taken 04/06/21] omeprazole 20 mg PO DAILY 04/24/21 [History Last Taken Unknown] Allergy/AdvReac Type Severity Reaction Status Date / Time cetirizine Allergy Severe chest Verified 04/25/21 12:04 pain, irregular heart beat acyclovir [From Zovirax] Allergy Intermediate GI upset Verified 04/25/21 12:04 Cephalosporins Allergy Intermediate abdominal Verified 04/25/21 12:04 pain Dpdtuac-Ooj-Wgi Reductase Allergy Intermediate increased Verified 04/25/21 12:04 Inhibitor weakness ciprofloxacin [From Cipro] AdvReac Diarrhea Verified 04/25/21 12:04 doxycycline AdvReac Diarrhea Verified 04/25/21 12:04 Family History Mother Breast cancer Father Colon cancer Cancer prostate Surgical History History of cataract removal with insertion of prosthetic lens History of coronary artery bypass graft Presence of stent in coronary artery Social History Smoking Status: Former smoker alcohol intake: current alcohol intake frequency: holidays/special occasions only substance use type: does not use caffeine: Yes Type: coffee Number of servings: 1 Results Lab / Micro Data Result Diagrams: 04/25/21 13:55 04/25/21 13:55 Charges/Coding Addendum Addendum: Patient seen by Janet AHUMADA under my supervision Patient is a 70 y/o male with a past medical history as outlined who was admitted through the ED on 04/25/2021 with a complaint of weakness and debility. He had come into the ED the day before admission on account of similar complaints and declined rehab. He was discharged home and adult protective services was notified of discharge. Patient apparently lives with his girlfriend. Patient denied any fever chills shortness of breath, nausea vomiting and denied any mechanical falls. Review of symptoms otherwise negative. O/E; Const alert and no apparent distress Orientation / Consciousness: oriented to person, oriented to place and oriented to time Nutritional Appearance: other Other Details: Unkempt, frail, intermittently confused HEENT normocephalic and moist oral mucous membranes Eyes PERRL, EOMs intact bilaterally and conjunctivae normal Neck no lymphadenopathy Resp normal respiratory effort and clear to auscultation bilaterally Cardio regular rate, regular rhythm and no murmurs Peripheral Pulses: pulses 2+ throughout GI normal to inspection, nondistended, normoactive bowel sounds, non-tender and non-distended Extremity normal to inspection Skin no rashes or lesions noted Skin Narrative: Numerous scattered abrasions and ecchymosis. Lesions: no lesions Rashes: no rashes Trauma: no lacerations or abrasions Neuro CN's II-XII intact bilaterally, no focal motor deficits, no sensory deficits noted and deep tendon reflexes 2+ bilaterally Psych mental status grossly normal and affect normal Patient has been admitted to be managed for debility. PT OT consulted. Fall precautions. Patient will need placement. Patient on Eliquis for DVT prophylaxis. Rest as per ZITA Schwab's notes which I reviewed and endorsed. Visit Charges OBSV E&M: [id number] Initial observation care L2
--- NOTE | 2021-04-25 19:00 | RAD_ITS ---
STUDY: X-RAY CHEST REASON FOR EXAM: Male, 70 years old. frothy sputum ?chf? TECHNIQUE: Single AP portable view of the chest. COMPARISON: 04/24/2021 FINDINGS: Sternotomy wires are midline. Mild prominent interstitial markings are present with no evidence of overt vascular congestion. There is no demonstrated pleural abnormality. There is moderate cardiac enlargement. Normal mediastinum and edson. Normal visualized pulmonary arteries. Normal visualized aortic arch and descending thoracic aorta. Normal visualized thoracic spine. Normal visualized ribs, clavicles, and shoulders. There is no demonstrated abnormality of the visualized soft tissue structures of the upper abdomen. RAD/Chest 1 View (Portable) IMPRESSION: Cardiomegaly with no evidence of overt vascular congestion with mild interstitial edema not excluded. Electronically Signed: Silvino Allen DO at 19:35 EDT , Service support ,
[2021-04-25] MEDS: Furosemide 40 MG/4 ML Vial IV (19:16)
[2021-04-25] MEDS: 0.9% Saline Lock 10 ML Syringe IV (19:16)
[2021-04-25 19:23] LABS: BNP,B-Type NATRIURETIC PEPTIDE 2312.3 pg/mL (0-100)
[2021-04-25] MEDS: Ipratropium/Albuterol Sulfate 3 ML AMPUL.NEB INHALATION (19:47)
[2021-04-26] VITALS (60 sets, daily range): BP systolic 53–209; BP diastolic 22–176; PULSE 67–150; RESP 12–50; TEMP 36.3–37.2; O2SAT 79–100
[2021-04-26] MEDS: LORazepam 2 MG/ML Syringe 1 MG IV (01:09)
[2021-04-26] MEDS: 0.9% Saline Lock 10 ML Syringe IV ×3 (01:10→04:04)
--- NOTE | 2021-04-26 01:31 | EKG12_ITS ---
Test Reason : AM EKG Blood Pressure : / mmHG Vent. Rate : 150 BPM Atrial Rate : 159 BPM P-R Int : 000 ms QRS Dur : 130 ms QT Int : 280 ms P-R-T Axes : 000 095 -67 degrees QTc Int : 442 ms Atrial fibrillation Non-specific intra-ventricular conduction block T wave abnormality, consider, anterior ischemia Abnormal ECG Confirmed by CARTER DURAND, ANDRESSA ([id number]), content editor YARON BOYCE ([id number]) on 04/28/2021 10:52:44 AM Referred By: OLLIE Confirmed By:ANDRESSA MACHADO MD
[2021-04-26] MEDS: Metoprolol Tartrate 5 MG/5 ML Vial IV (02:09)
[2021-04-26 02:25] LABS: Troponin-I HS 89.4 pg/mL (3.0-78.5)
--- NOTE | 2021-04-26 02:38 | PCM.HOSP.N ---
Hospitalist Note Patient complain of chest pain right-sided, felt like a bee sting. Twelve-lead EKG was done which showed A. fib with RVR. On metoprolol 5 mg IV every 4 hourly as needed for heart rate more than 120/min. Patient is n.p.o. given encephalopathy. Serial troponin ordered.
--- NOTE | 2021-04-26 03:22 | NURSING ---
Called and gave report to PCU charge.
--- NOTE | 2021-04-26 03:24 | NURSING ---
Called daughter and let her know we were transfering Pt to PCU, because his BNP and trop were up so he needed to have higher level of cardiac monitoring. HR was running high gave meds for that.
[2021-04-26] MEDS: Ondansetron 4 MG/2 ML Vial IV (04:02)
[2021-04-26] MEDS: Haloperidol Lactate 5 MG/ML Vial 2 MG IV (04:17)
[2021-04-26] MEDS: proMETHazine 25 MG/ML Syringe 12.5 MG IM (04:18)
--- NOTE | 2021-04-26 05:00 | EKG12_ITS ---
Test Reason : CP Blood Pressure : / mmHG Vent. Rate : 122 BPM Atrial Rate : 178 BPM P-R Int : 000 ms QRS Dur : 122 ms QT Int : 318 ms P-R-T Axes : 000 078 -16 degrees QTc Int : 453 ms Atrial fibrillation Nonspecific ST and T wave abnormality Abnormal ECG Confirmed by CARTER DURAND, ANDRESSA ([id number]), sports editor YARON BOYCE ([id number]) on 04/28/2021 11:03:03 AM Referred By: HERMELINDA Confirmed By:ANDRESSA MACHADO MD
[2021-04-26] MEDS: Furosemide 20 MG/2 ML VIAL IV (05:42)
[2021-04-26] MEDS: Amiodarone 360 MG in Dextrose 5% Viaflo Bag 192.8 ML 33.3 MG CONT INF (05:44)
--- NOTE | 2021-04-26 05:45 | NURSING ---
This RN spoke with pt's daughter Ivette and gave update of pt transfer from med surg to pcu and continued instability r/t HR and BP. Confirmed pt code status as full. Pt now being transferred to ICU.
[2021-04-26 05:46] LABS: Bedside Glucose 160 mg/dL (70-110)
[2021-04-26 05:51] LABS: Troponin-I HS 83.6 pg/mL (3.0-78.5)
--- NOTE | 2021-04-26 06:05 | NURSING ---
605pt arrived to room cvicu 203, labored breathing, moaning, moist HR 140's Dr poon at bedside, no iv access multiple attempts to gain access(on pcu and in icu) with no success. will put pt on bipap (26/06)while dr poon attempts getting central line in pt.
--- NOTE | 2021-04-26 06:10 | RAD_ITS ---
STUDY: X-RAY CHEST REASON FOR EXAM: Male, 70 years old. SOB, Pulm edema TECHNIQUE: Single AP portable view of the chest. COMPARISON: Comparison is made with prior study 04/25/2021. FINDINGS: A right-sided central venous catheter is been placed. The tip is at the junction of the superior vena cava and right atrium. EKG electrodes are seen. The lungs are clear and expanded. There is no demonstrated pleural abnormality. Sternal cerclage wires and vascular clips are present from a prior sternotomy and coronary artery bypass graft procedure (CABG). Mild cardiomegaly. Normal mediastinum and edson. Normal visualized pulmonary arteries. Normal visualized aortic arch and descending thoracic aorta. Normal visualized thoracic spine. Normal visualized ribs, clavicles, and shoulders. There is no demonstrated abnormality of the visualized soft tissue structures of the upper abdomen. RAD/CXR for Line Placement IMPRESSION: Mild cardiomegaly. The tip of the right central venous catheter is at the junction of the superior vena cava and right atrium. Electronically Signed: Tony Jose MD at 8:06 EDT , Service support ,
[2021-04-26] MEDS: LORazepam 2 MG/ML Syringe IV (07:05)
[2021-04-26 07:43] LABS: Absolute Lymphocyte Count 1.33 X10^3/uL (0.83-4.51); Absolute Neutrophil Count 12.6 X10^3/uL (2.0-7.7); Basophil# 0.05 X10^3/uL; Basophil% 0.3 % (0-1); Eosinophil# 0.05 X10^3/uL; Eosinophils% 0.3 % (0-5); Hematocrit 43.6 % (40-54); Lymphocyte # 1.33 X10^3/ul (0.83-4.51); Lymphocyte % 8.5 % (19-41); Mean Corp Hgb Conc 29.8 g/dL (32-36); Mean Corpuscular Hgb 27.1 pg (27.0-32.0); Mean Corpuscular Volume 90.8 fL (80-94); Mean Platelet Vol. 9.8 fl (6.2-12.0); Monocyte% 6.4 % (0-10); NRBC Flagged by Analyzer 0.5 % (0-5); Neutrophil # 12.55 X10^3/uL (2.7-7.7); Neutrophil % 79.9 % (47-70); Platelet Count 152 K/mm3 (150-450); RBC Distribution Width CV 17.2 % (11.6-14.6); RBC Distribution Width SD 55.9 fl (35.1-43.9); White Blood Count 15.7 K/mm3 (4.4-11.0)
[2021-04-26 07:59] LABS: Anion Gap 21 (5-15); BUN 18 mg/dL (7-18); BUN/Creat Ratio 8.8 RATIO (10-20); Chloride 102 mmol/L (98-107); Creatinine, Serum 2.04 mg/dL (0.70-1.30); EST Glomerular Filtration Rate 34 mL/min (>60); Est Glom Filt Rate - Afr Amer 42 mL/min (>60); Estimated Creatinine Clearance 31.05 ml/min; Glucose 155 mg/dL (74-106); Magnesium 2.3 mg/dL (1.6-2.6); Phosphorus 6.5 mg/dL (2.5-4.9); Potassium 5.3 mmol/L (3.5-5.1); Sodium Level 138 mmol/L (136-145)
[2021-04-26 08:03] LABS: CPK Total, Creatine Kinase 188 U/L (39-308)
[2021-04-26] MEDS: Etomidate 20 MG/10 ML Vial IV (08:20)
--- NOTE | 2021-04-26 08:22 | RAD_ITS ---
STUDY: X-RAY CHEST REASON FOR EXAM: Male, 70 years old. Intubation TECHNIQUE: Single AP portable view of the chest. COMPARISON: Comparison is made with prior study done earlier today. FINDINGS: An endotracheal tube is in situ. The tip is at 4.1 cm proximal to the roberto. A right-sided internal jugular venous catheter is in situ and is unchanged with the tip at the junction of the superior vena cava and right atrium. EKG electrodes are seen. An orogastric tube is seen with the tip in the body of the stomach. Mild increased markings at the left lung base suggestive of linear atelectasis and/or possible early infiltrate. There is no demonstrated pleural abnormality. Sternal cerclage wires and vascular clips are present from a prior sternotomy and coronary artery bypass graft procedure (CABG). Normal mediastinum and edson. Normal visualized pulmonary arteries. There is atherosclerotic tortuosity of the aortic arch and descending thoracic aorta. Normal visualized thoracic spine. Normal visualized ribs, clavicles, and shoulders. There is no demonstrated abnormality of the visualized soft tissue structures of the upper abdomen. RAD/Chest 1 View (Portable) IMPRESSION: The tip of the endotracheal tube is at 4.1 cm proximal to the roberto. The distal tip of the orogastric tube is in the body of the stomach. Mild increased markings at the left lung base suggestive of atelectasis and/or early infiltrate. Electronically Signed: Tony Jose MD at 14:37 EDT , Service support ,
--- NOTE | 2021-04-26 09:18 | EKG12_ITS ---
Test Reason : Blood Pressure : / mmHG Vent. Rate : 100 BPM Atrial Rate : 107 BPM P-R Int : 000 ms QRS Dur : 152 ms QT Int : 354 ms P-R-T Axes : 000 139 106 degrees QTc Int : 456 ms Atrial fibrillation with premature ventricular or aberrantly conducted complexes Right bundle branch block Left posterior fascicular block Bifascicular block Inferior infarct , age undetermined ST-Segment Abnormality: Consider Anterior-Lateral Subendocardial Injury Abnormal ECG Confirmed by CARTER DURAND, ANDRESSA ([id number]), continuity editor YARON BOYCE ([id number]) on 04/28/2021 11:17:06 AM Referred By: Confirmed By:ANDRESSA MACHADO MD
--- NOTE | 2021-04-26 09:31 | EKG12_ITS ---
Test Reason : Blood Pressure : / mmHG Vent. Rate : 076 BPM Atrial Rate : 076 BPM P-R Int : 212 ms QRS Dur : 168 ms QT Int : 464 ms P-R-T Axes : -10 253 092 degrees QTc Int : 522 ms Sinus rhythm with 1st degree A-V block Indeterminate axis Right bundle branch block Inferior infarct , age undetermined T wave abnormality, consider anterior-lateral ischemia Abnormal ECG Confirmed by CARTER DURAND, ANDRESSA ([id number]), editorial writer YARON BOYCE ([id number]) on 04/28/2021 11:13:54 AM Referred By: Confirmed By:ANDRESSA MACHADO MD
--- NOTE | 2021-04-26 09:33 | NURSING ---
Successful synchronized cardioversion to NSR at [address] Natarajan present for procedure.
--- NOTE | 2021-04-26 09:35 | ECHOD_ITS ---
Reason For Study: Hypotension Procedure This was a 2D Doppler, Color Flow transthoracic echocardiogram. Exam performed portable in ICU/CCU. Left Ventricle Normal LV size. The estimated ejection fraction is 30 %. Moderately severe segmental systolic dysfunction (see wall motion). Stage 3 diastolic dysfunction. Mid-Inferior: Akinetic. Infero-Basal: Akinetic. There is moderate to severe global hypokinesis of the left ventricle. Right Ventricle Normal RV size. Normal systolic function. Atria The left atrium is moderately enlarged. Normal right atrium. Mitral Valve Bileaflet diffuse mitral valve thickening. Mild-Moderate (1-2+) eccentric mitral valve insufficiency. Tricuspid Valve Normal tricuspid valve. Moderate (2+) tricuspid valve insufficiency. Pulmonary artery systolic pressure is 43 mmHg. Aortic Valve Trisinus/trileaflet aortic valve. Mild (1+) aortic valve insufficiency. Pulmonic Valve Normal pulmonic valve. Mild (1+) pulmonic valve insufficiency. Great Vessels Normal aortic root. The pulmonary artery is normal size. The inferior vena cava is dilated. Pericardium/Pleural No pericardial effusion. MMode/2D Measurements & Calculations LVIDd: 5.5 cm IVSd: 1.0 cm LA dimension: 5.1 cm LVIDs: 4.8 cm LVPWd: 0.81 cm RVDd: 4.4 cm FS: 12.4 % LAV(MOD-bp): 112.6 ml LA A4 area: 28.9 cm2 RA A4 area: 19.9 cm2 LAV(MOD-bp) Indexed: 62.4 ml/m2 LAV(MOD-sp2): 112.5 ml LAV(MOD-sp4): 100.0 ml Time Measurements MV dec time: 0.20 sec Doppler Measurements & Calculations MV E max jose: 81.9 cm/sec Lat Peak E' Jose: 5.9 cm/sec Med Peak E' Jose: 5.0 cm/sec MV A max jose: 34.0 cm/sec E/E' lat: 13.8 E/E' med: 16.5 MV E/A: 2.4 MV V2 max: 85.0 cm/sec MV P1/2t max jose: 85.4 cm/sec Ao V2 max: 118.4 cm/sec MV max P.9 mmHg MV P1/2t: 91.0 msec Ao max P.6 mmHg MV V2 mean: 39.3 cm/sec MV dec slope: 275.0 cm/sec2 MV mean P.80 mmHg MVA(P1/2t): 2.4 cm2 MV V2 VTI: 21.7 cm AI max jose: 316.4 cm/sec LV V1 max: 55.9 cm/sec PA V2 max: 79.0 cm/sec AI max P.0 mmHg LV V1 max P.2 mmHg AI dec slope: 93.8 cm/sec2 AI P1/2t: 988.1 msec PI end-d joes: 167.6 cm/sec TR max jose: 298.6 cm/sec TR max P.7 mmHg ECHO/Echo Complete Interpretation Summary Normal LV size. The estimated ejection fraction is 30 %. Moderately severe segmental systolic dysfunction (see wall motion). Stage 3 diastolic dysfunction. Bileaflet diffuse mitral valve thickening. The left atrium is moderately enlarged. Compared to previous study, the left ventricular systolic function has worsened .. Ordering Physician: Cliff Natarajan Referring Physician: Woo Pineda Performed By: Adiel Paz RCS
[2021-04-26] MEDS: Sodium Bicarbonate 8.4% 50 ML Syringe 50 MEQ IV (09:44)
[2021-04-26 10:01] LABS: Base Excess -13 mmol/L (-2 to +2); Bicarbonate 13.6 mmol/L (22-26); Blood Gas Specimen Type ART; FI02 100; Mode AC; O2 Delivery Device Adult Vent; PEEP 8; PO2 612 mmHG (75-100); RR 12; SITE R Fem; SO2 100 % (95-99); Total Carbon Dioxide 15 mmol/L; Vt 450; pCO2 29.6 mmHg (35-45); pH 7.27 (7.35-7.45)
--- NOTE | 2021-04-26 10:20 | PCM.OP.BLANK ---
Problems Associated Problem List Diagnoses (1) Shock: Operative Report Date of Procedure: 04/26/21 Central Venous Catheter Indication: Shock, vascular access Consent was obtained from: Emergent procedure, loss of vascular access A time-out was completed verifying correct patient, procedure, site, positioning, and special equipment if applicable. The patient was placed in a dependent position appropriate for central line placement based on the vein to be cannulated. The patient's right IJ was prepped and draped in a sterile fashion. 1% lidocaine was used to anesthetize the surrounding skin area. A triple-lumen catheter was introduced into the right IJ using the Seldinger technique and under ultrasound guidance. The catheter was threaded smoothly over the guidewire and appropriate blood return was obtained. Each lumen of the catheter was evacuated of air and flushed with sterile saline. The catheter was then sutured in place to the skin and a sterile dressing applied. Chest x-ray to confirm appropriate positioning was completed and showed appropriate positioning with no pneumothorax. This procedure was completed independent of reported critical care time. ULTRASOUND GUIDANCE STATEMENT (Vascular Access): I performed ultrasound image acquisition and interpretation for needle placement during the procedure. The vessel was identified and found to be free of thrombosis by compression technique. A safe point of entry was marked at the skin in an angle for axis was determined. The needle was guided by obtaining free-flowing fluid and by real-time visualization. Procedures Hospitalists Procedures: 46362 Insert Non-tunnel CV Cath
--- NOTE | 2021-04-26 10:23 | CON.PCM.CC_ITS ---
Assessment & Plan Assessment/Plan (1) Shock: (2) Respiratory failure requiring intubation: (3) Acute kidney injury: (4) Nonsustained ventricular tachycardia: (5) Atrial fibrillation with rapid ventricular response: PLAN: RECOMMENDATIONS: 1. Obtain crocker culture. 2. Initiate empiric Zosyn therapy 3. Discontinue beta-alberto and diuretics 4. Stat echocardiogram 5. Initiate pressor therapy 6. Wean supplemental oxygen as tolerated IMPRESSIONS: 1. Undifferentiated shock Unclear etiology at this time. Patient does have A. fib with RVR, nonsustained V. tach and A. fib with aberrancy. Echocardiogram has been ordered stat. Patient also has a history of recent diverticular abscess and has significant leukocytosis. Patient will be placed on empiric Zosyn therapy following panculture. Continue pressors as necessary. 2. Acute respiratory failure secondary to muscle fatigue with reported COPD Patient with significant tachypnea for several hours that appears to be an attempt to compensate for metabolic acidosis. Patient currently intubated and sedated. Spontaneous breathing and awakening trials per protocol. Discontinue IV Lasix given patient's acute kidney injury. Sputum culture will be ordered despite reported symptoms. 3. Paroxysmal A. fib/nonsustained V. tach/recent NSTEMI/CAD Cardiology consulted. Repeat echocardiogram shows a decrease in EF to 30% with stage III diastolic dysfunction and elevated pulmonary artery pressure of 43 mmHg. Patient did have an emergent cardioversion with improvement in pressures. Amiodarone drip has been initiated. Defer to cardiology on continuation. We will hold beta-alberto given patient's need for pressor therapy. Patient was not on anticoagulation on presentation, but was saturating well on room air, so pulmonary embolism is unlikely. 4. Metabolic encephalopathy/delirium Patient at high risk for delirium given baseline status. Patient should not be given benzodiazepines if possible. Unclear if Haldol will be an option given patient's nonsustained V. tach. Continue with nursing protocol. 5. Hypertension/history of VTE/hyperlipidemia/anxiety disorder/severe protein calorie malnutrition Complicates care, management, recovery and prognosis. Dietitian to provide tube feed recommendations. These will be initiated. Despite significant baseline difficulties, patient's daughter is requesting full CODE STATUS. Addendum 2:05 PM: Patient's lactate was elevated above 14. Concern for refractory shock as patient is currently on 2 pressors with continued decreased peripheral perfusio n. Called patient's daughter who is the POA to discuss the situation. She stated that she had to discuss with other people and was having a bad day. She says she will call back with instructions but was debating between DNR Comfort Care arrest and DNR Comfort Care only. TIME: 110 minutes of critical care time, excluding central line, spent addressing patient's undifferentiated shock, respiratory failure, nonsustained V. tach, review of all data and collaboration with care team (6 AM to 11 AM) HPI Consult Data Date of Consult: 04/26/21 HPI Narrative HPI Narrative: ADRIANNE ALVAREZ is a 70 M, with past medical history listed below, who presents for [facility] on 04/25/2021 secondary to progressive generalized weakness. Patient reportedly was seen in the ER on the day previous for similar type of complaints. Patient reportedly was at a rehab facility prior to going home. Patient was reportedly being followed by Adult Protective Services. Patient did not really have any complaints in the ER. In the ER, patient was afebrile at 97.9 ?F, tachycardic at 118 bpm but normotensive. Patient was noted to be 95% on room air. Laboratory work-up showed an anemia of 12.8, thrombocytopenia at 131 and normal chemistries. Patient was brought into the hospital for potential placement. On the floor, patient reportedly was very confused and had stated that he had a brain tumor. Patient reportedly had no specific complaints. PT/OT was consulted in an effort to achieve placement. Have paroxysmal A. fib, so was placed on Eliquis therapy. Patient was placed on his home Lasix and scheduled on Ativan despite his already confused status. Overnight, patient had a twelve-lead EKG showing A. fib with RVR. Patient was given Lopressor secondary to concerns for aspiration associated with A. fib. Patient continued to be agitated and had some episodes of nonsustained V. tach. Patient was given Haldol for his agitation. Patient reportedly had stated he did not want heroic measures, but daughter had been contacted and stated that he was a full code. Patient was then transferred emergently to the intensive care unit at approximately 6 AM in respiratory distress with a respiratory rate in the 40s to 50s. Patient was also hypoxic and initially normotensive. On transfer to his ICU bed, IV access was lost. Multiple attempts were unsuccessful. Patient was initially prepared for intubation, but given the lack of access for sedative medications, patient was placed on BiPAP therapy to attempt optimization. Despite being on BiPAP therapy, patient remained significantly tachypneic. Given concerns for lack of venous access, a right central line was placed by myself. Labs were drawn showing a slightly decreased magnesium and significantly elevated creatinine. Patient was given etomidate and successfully intubated at approximately 8:22 AM. Following intubation, patient had hypotension, so was placed on Levophed. Patient progressed and hypotension despite Levophed at 30, so an emergent synchronized cardioversion was performed at 9:30 AM and was successful in achieving normal sinus rhythm. Blood pressures did improve. Unable to obtain review of systems or clarification of baseline status secondary to extremitas on presentation. [facility] Medical History (Updated 04/26/21 @ 12:[address] Nash Mondragon MD) Atherosclerosis of coronary artery bypass graft without angina pectoris Atherosclerosis of coronary artery of [place] heart without angina pectoris Gaines's esophagus Cardiomyopathy, ischemic CHF (congestive heart failure) COPD (chronic obstructive pulmonary disease) Diverticulosis Essential hypertension GERD (gastroesophageal reflux disease) Hearing loss, left Hearing loss, right History of DVT (deep vein thrombosis) History of pulmonary embolism HLD (hyperlipidemia) HTN (hypertension) Hyperlipidemia Insomnia Myocardial infarct Palpitations Perforation of sigmoid colon due to diverticulitis Severe low back pain Sleep apnea Smoker Vitamin D deficiency Home Medications hydrocodone-acetaminophen 1 tab PO 4X/DAY PRN 09/17/17 [History Last Taken 04/05/21] albuterol sulfate 1.25 mg INHALATION Q4H PRN 01/28/19 [History Last Taken Unknown] ipratropium 20 mcg-albuterol 100 mcg/actuation mist for inhalation 1 puff INHALATION DAILY 90 Days g 01/28/19 [History Last Taken Unknown] tizanidine 4 mg tablet 4 mg PO TID PRN 01/28/19 [History Last Taken Unknown] potassium chloride 10 meq PO DAILY 03/20/21 [History Last Taken 03/23/21] alprazolam 1 mg PO BID 04/06/21 [History Last Taken 04/06/21] atenolol 50 mg PO DAILY 04/06/21 [History Last Taken Unknown] amoxicillin-pot clavulanate 1 tab PO BID 7 Days #14 tab 04/09/21 [Rx Last Taken 04/06/21] omeprazole 20 mg PO DAILY 04/24/21 [History Last Taken Unknown] Allergy/AdvReac Type Severity Reaction Status Date / Time cetirizine Allergy Severe chest Verified 04/25/21 12:04 pain, irregular heart beat acyclovir [From Zovirax] Allergy Intermediate GI upset Verified 04/25/21 12:04 Cephalosporins Allergy Intermediate abdominal Verified 04/25/21 12:04 pain Esiztnp-Jat-Fiw Reductase Allergy Intermediate increased Verified 04/25/21 12:04 Inhibitor weakness ciprofloxacin [From Cipro] AdvReac Diarrhea Verified 04/25/21 12:04 doxycycline AdvReac Diarrhea Verified 04/25/21 12:04 Family History (Reviewed 04/25/21 @ 15:45 by Janet Hall MARKETING AND PUBLIC RELATIONS MANAGER, MARKETING AND PUBLIC RELATIONS MANAGER-C) Mother Breast cancer Father Colon cancer Cancer prostate Surgical History History of cataract removal with insertion of prosthetic lens History of coronary artery bypass graft Presence of stent in coronary artery Social History Smoking Status: Former smoker alcohol intake: current alcohol intake frequency: holidays/special occasions only substance use type: does not use caffeine: Yes Type: coffee Number of servings: 1 ROS Review of Systems ROS Unobtainable: due to endotracheal tube and due to mental condition Physical Exam Const General Appearance: cooperative, ill appearing, frail, intubated and patient me chanically ventilated HEENT normocephalic, head/scalp atraumatic and moist oral mucous membranes Eyes PERRL and EOMs intact bilaterally Neck full ROM and no lymphadenopathy Chest inspection of chest normal Resp Resp Narrative: Paradoxical breathing prior to intubation. This is improved. Patient was noted to have peak airway pressures of approximately 22 immediately after intubation. Auscultation: rales, wheezes and diminished lung sounds; Negative for rhonchi Percussion: Negative for dullness Cardio S1 normal heart sound, S2 normal heart sound, no murmurs, no rub and no gallops Cardio Narrative: A. fib with aberrancy, A. fib with RVR and nonsustained V. tach noted prior to cardioversion. GI normal to inspection, nondistended, normoactive bowel sounds no CVA tenderness Extremity no clubbing, cyanosis or edema Skin Skin Narrative: Multiple superficial skin tears and ecchymotic areas from previous IV attempts noted Neuro CN's II-XII intact bilaterally, moves all extremities and no focal motor deficits Neuro Narrative: Currently sedated on the ventilator Sensorium / Orientation: confused and fluctuating sensorium Psych Appearance: unkempt and disheveled Attitude: agitated Mood & Affect: labile affect Lab / Micro Data Result Diagrams: 04/26/21 07:30 04/26/21 12:10 Labs: Laboratory Results - last 24 hr 04/25/21 13:55: WBC 9.1, RBC 4.67, Hgb 12.8 L, Hct 40.6, MCV 86.9, MCH 27.4, MCHC 31.5 L D, RDW Std Deviation 52.8 H, RDW Coeff of Thierno 16.9 H, Plt Count 131 L, MPV 9.7, Immature Gran % (Auto) 0.900, Neut % (Auto) 77.3 H, Lymph % (Auto) 13.4 L, [place] % (Auto) 7.9, Eos % (Auto) 0.2, Baso % (Auto) 0.3, Absolute Neuts (auto) 7.0, Absolute Lymphs (auto) 1.22, Nucleated RBC % 0 04/25/21 13:55: Sodium 136, Potassium 4.6, Chloride 103, Carbon Dioxide 24.0, Anion Gap 9, BUN 15, Creatinine 1.05, Estim Creat Clear Calc 60.33, Est GFR (MDRD) Af Amer 89, Est GFR (MDRD) Non-Af 74, BUN/Creatinine Ratio 14.3, Glucose 101, Calcium 9.0 04/25/21 13:55: B-Natriuretic Peptide 2312.3 H 04/26/21 01:49: Troponin I High Sens 89.4 H* 04/26/21 05:04: Troponin I High Sens 83.6 H* 04/26/21 05:21: POC Glucose 160 H 04/26/21 07:30: WBC 15.7 H, RBC 4.80, Hgb 13.0, Hct 43.6, MCV 90.8, MCH 27.1, MCHC 29.8 L D, RDW Std Deviation 55.9 H, RDW Coeff of Thierno 17.2 H, Plt Count 152, MPV 9.8, Immature Gran % (Auto) 4.600 H, Neut % (Auto) 79.9 H, Lymph % (Auto) 8.5 L, [place] % (Auto) 6.4, Eos % (Auto) 0.3, Baso % (Auto) 0.3, Absolute Neuts (auto) 12.6 H, Absolute Lymphs (auto) 1.33, Nucleated RBC % 0.5 04/26/21 07:30: Sodium 138, Potassium 5.3 H, Chloride 102, Carbon Dioxide 15.0 L , Anion Gap 21 H, BUN 18, Creatinine 2.04 H, Estim Creat Clear Calc 31.05, Est GFR (MDRD) Af Amer 42 L, Est GFR (MDRD) Non-Af 34 L, BUN/Creatinine Ratio 8.8 L, Glucose 155 H, Calcium 9.0, Phosphorus 6.5 H, Magnesium 2.3 04/26/21 07:30: Total Creatine Kinase 188 ABG Data ABG results: ABG 04/26/21 09:57 Specimen Type ART Sample Site R Fem pH 7.27 L Bicarbonate Actual 13.6 L Total CO2 15 Base Excess -13 L O2 Saturation 100 H O2 % 100 ABG pCO2 29.6 L ABG pO2 612 H* Respiration Rate 12 O2 Delivery Device Adult Vent Vent Mode AC Tidal Volume 450 POC PEEP 8 Crit Call To/Read Back Yes Blood Gas Notified Whom ayah Radiology Impression Chest X-Ray 04/25/21 19:00 IMPRESSION: Cardiomegaly with no evidence of overt vascular congestion with mild interstitial edema not excluded. Electronically Signed: Silvino Allen DO at 19:35 EDT , Service support , Chest X-Ray 04/26/21 06:10 IMPRESSION: Mild cardiomegaly. The tip of the right central venous catheter is at the junction of the superior vena cava and right atrium. Electronically Signed: Tony Jose MD at 8:06 EDT , Service support , Charges/Coding Procedures Hospitalists Procedures: 75090 Critial Care 1st Hr Multi Select Codes Hospitalists' Procedures Procedures: 12276 Critial Care Addl 30 Min (x2, 110 minutes CCT)
--- NOTE | 2021-04-26 10:32 | PCM.PN.CARD ---
Subjective Subjective This is a 70-year-old white male who is referred for cardiovascular consultation based upon concerns of atrial fibrillation with RVR, ventricular tachycardia, superimposed upon a history of underlying CAD, CABG, ischemic mediated cardiomyopathy, chronic systolic CHF, hyperlipidemia, hypertension, report of a thoracic aortic aneurysm, and a chronic debilitated state. He was most recently evaluated in cardiovascular consultation on 03-24-[address] Polanco for concerns of atrial fibrillation superimposed upon his history of CAD, CABG, and a non-ST segment elevation [place]. At that time based upon the patient's chronic debilitated state and comorbidities he was not felt to be an ideal candidate for further evaluation in the cardiac catheterization laboratory. Thus he was treated medically. According to the [facility] staff he has returned to the hospital based upon his overall generalized decline/weakness/debility. The [facility] staff was called to evaluate the patient based upon evidence of recurrent atrial fibrillation with RVR and findings of nonsustained ventricular tachycardia as well as concerns of progressive shortness of breath/dyspnea. He was subsequently transferred to the ICU for further evaluation and care. The patient was reported as having difficulty with IV access. In the ICU a CVC was placed. He was placed on BiPAP therapy. However based upon his declining status he subsequently underwent mechanical intubation/ventilation. He was receiving additional medical therapy to assist with cardiac rate and rhythm with IV amiodarone. However, based upon a low blood pressure he also required additional IV vasopressor support. Objective Data Vital Signs: Vital Signs Temp Pulse Resp BP Pulse Ox 99.0 F 94 36 H 70/48 L 86 04/26/21 07:41 04/26/21 08:22 04/26/21 08:22 04/26/21 09:17 04/26/21 07:41 Oxygen Flow Rate (L/min) 6 Oxygen Delivery Method Bi-pap Weight: 153 lb 3.54 oz Body Mass Index (BMI) 25.5 Intake & Output: Intake and Output for Last 24 Hours 04/24/21 04/25/21 04/26/21 23:59 23:59 23:59 Intake Total 500 / 500 23.42 / 23.42 Output Total 600 / 600 Balance 500 / -100 -576.58 / -576.58 Lab / Micro Data Result Diagrams: 04/26/21 07:30 04/26/21 07:30 Labs: Laboratory Results - last 24 hr 04/25/21 13:55: WBC 9.1, RBC 4.67, Hgb 12.8 L, Hct 40.6, MCV 86.9, MCH 27.4, MCHC 31.5 L D, RDW Std Deviation 52.8 H, RDW Coeff of Thierno 16.9 H, Plt Count 131 L, MPV 9.7, Immature Gran % (Auto) 0.900, Neut % (Auto) 77.3 H, Lymph % (Auto) 13.4 L, [place] % (Auto) 7.9, Eos % (Auto) 0.2, Baso % (Auto) 0.3, Absolute Neuts (auto) 7.0, Absolute Lymphs (auto) 1.22, Nucleated RBC % 0 04/25/21 13:55: Sodium 136, Potassium 4.6, Chloride 103, Carbon Dioxide 24.0, Anion Gap 9, BUN 15, Creatinine 1.05, Estim Creat Clear Calc 60.33, Est GFR (MDRD) Af Amer 89, Est GFR (MDRD) Non-Af 74, BUN/Creatinine Ratio 14.3, Glucose 101, Calcium 9.0 04/25/21 13:55: B-Natriuretic Peptide 2312.3 H 04/26/21 01:49: Troponin I High Sens 89.4 H* 04/26/21 05:04: Troponin I High Sens 83.6 H* 04/26/21 05:21: POC Glucose 160 H 04/26/21 07:30: WBC 15.7 H, RBC 4.80, Hgb 13.0, Hct 43.6, MCV 90.8, MCH 27.1, MCHC 29.8 L D, RDW Std Deviation 55.9 H, RDW Coeff of Thierno 17.2 H, Plt Count 152, MPV 9.8, Immature Gran % (Auto) 4.600 H, Neut % (Auto) 79.9 H, Lymph % (Auto) 8.5 L, [place] % (Auto) 6.4, Eos % (Auto) 0.3, Baso % (Auto) 0.3, Absolute Neuts (auto) 12.6 H, Absolute Lymphs (auto) 1.33, Nucleated RBC % 0.5 04/26/21 07:30: Sodium 138, Potassium 5.3 H, Chloride 102, Carbon Dioxide 15.0 L, Anion Gap 21 H, BUN 18, Creatinine 2.04 H, Estim Creat Clear Calc 31.05, Est GFR (MDRD) Af Amer 42 L, Est GFR (MDRD) Non-Af 34 L, BUN/Creatinine Ratio 8.8 L, Glucose 155 H, Calcium 9.0, Phosphorus 6.5 H, Magnesium 2.3 04/26/21 07:30: Total Creatine Kinase 188 ABG Data ABG results: ABG 04/26/21 09:57 Specimen Type ART Sample Site R Fem pH 7.27 L Bicarbonate Actual 13.6 L Total CO2 15 Base Excess -13 L O2 Saturation 100 H O2 % 100 ABG pCO2 29.6 L ABG pO2 612 H* Respiration Rate 12 O2 Delivery Device Adult Vent Vent Mode AC Tidal Volume 450 POC PEEP 8 Crit Call To/Read Back Yes Blood Gas Notified [facility] Labs/Tests 04/25/21 13:55: WBC 9.1, RBC 4.67, Hgb 12.8 L, Hct 40.6, MCV 86.9, MCH 27.4, MCHC 31.5 L D, Plt Count 131 L, MPV 9.7, Immature Gran % (Auto) 0.900, Neut % (Auto) 77.3 H, Lymph % (Auto) 13.4 L, [place] % (Auto) 7.9, Eos % (Auto) 0.2, Baso % (Auto) 0.3, Absolute Neuts (auto) 7.0, Nucleated RBC % 0 04/25/21 13:55: Sodium 136, Potassium 4.6, Chloride 103, Carbon Dioxide 24.0, Anion Gap 9, BUN 15, Creatinine 1.05, Est GFR (MDRD) Af Amer 89, Est GFR (MDRD) Non-Af 74, BUN/Creatinine Ratio 14.3, Glucose 101, Calcium 9.0 04/25/21 13:55: B-Natriuretic Peptide 2312.3 H 04/26/21 07:30: WBC 15.7 H, RBC 4.80, Hgb 13.0, Hct 43.6, MCV 90.8, MCH 27.1, MCHC 29.8 L D, Plt Count 152, MPV 9.8, Immature Gran % (Auto) 4.600 H, Neut % (Auto) 79.9 H, Lymph % (Auto) 8.5 L, [place] % (Auto) 6.4, Eos % (Auto) 0.3, Baso % (Auto) 0.3, Absolute Neuts (auto) 12.6 H, Nucleated RBC % 0.5 04/26/21 07:30: Sodium 138, Potassium 5.3 H, Chloride 102, Carbon Dioxide 15.0 L, Anion Gap 21 H, BUN 18, Creatinine 2.04 H, Est GFR (MDRD) Af Amer 42 L, Est GFR (MDRD) Non-Af 34 L, BUN/Creatinine Ratio 8.8 L, Glucose 155 H, Calcium 9.0, Phosphorus 6.5 H, Magnesium 2.3 04/26/21 09:57: pH 7.27 L, Bicarbonate Actual 13.6 L, Base Excess -13 L, O2 Saturation 100 H, ABG pCO2 29.6 L, ABG pO2 612 H* Rhythm: EKG: ECHO: Stress Test: Cardiac Cath: PCI: CT Surgery: Holter monitor: EPS: PPM: CXR: Chest CT Scan: Radiography Diagnostic Testing: Radiology Impression Chest X-Ray 04/25/21 19:00 IMPRESSION: Cardiomegaly with no evidence of overt vascular congestion with mild interstitial edema not excluded. Electronically Signed: Silvino Allen DO at 19:35 EDT , Service support , Chest X-Ray 04/26/21 06:10 IMPRESSION: Mild cardiomegaly. The tip of the right central venous catheter is at the junction of the superior vena cava and right atrium. Electronically Signed: Tony Jose MD at 8:06 EDT , Service support ,
--- NOTE | 2021-04-26 10:39 | CON.PCM.CA_ITS ---
Assessment & Plan Assessment/Plan (1) Atrial fibrillation with rapid ventricular response: PLAN: The patient has recurrent atrial fibrillation with RVR. He will continue to be monitored. He will continue attempts at rate and rhythm control with IV amiodarone. Based upon his overall cardiopulmonary condition and hemodynamics he may require synchronized biphasic DC cardioversion and attempt to regain sinus rhythm and attempt to assist with his hemodynamic profile. (2) Nonsustained ventricular tachycardia: PLAN: The patient has had episodes of ongoing ventricular tachycardia as well. Again he will continue medical therapy with IV amiodarone. (3) Atherosclerosis of coronary artery bypass graft without angina pectoris: QUALIFIERS: [place] vs. transplanted heart: habematolel heart Qualified Code(s): I25.810 - Atherosclerosis of coronary artery bypass graft(s) without an erin pectoris PLAN: The patient has a history of extensive underlying CAD. His previous noninvasive and invasive studies available for review are as noted. At the moment the patient does not appear to be an ideal candidate for further evaluation in the cardiac catheterization laboratory based upon a combination of his cardiovascular noncardiovascular comorbidities and his chronic debilitated appearing state. (4) Presence of stent in coronary artery: PLAN: The patient is reported as having previous PCI. (5) History of coronary artery bypass graft: PLAN: The patient has underlying history of CABG as noted. His previous studies available for review are as noted. There would be concern as to whether or not there has been any progression of disease in his grafts that would lead to declining LV systolic function. (6) Cardiomyopathy, ischemic: PLAN: The patient does appear to have an underlying ischemic mediated cardiomyopathy. His overall LVEF may also be worsened by his atrial fibrillation with RVR. At the present time he will need continued medical management/support as best as possible. If his blood pressures are low he is not a candidate for certain medications such as nitrates, beta-blockers, afterload reducing agents, etc. (7) CHF (congestive heart failure): QUALIFIERS: Heart failure type: systolic Heart failure chronicity : acute on chronic Qualified Code(s): I50.23 - Acute on chronic systolic (congestive) heart failure PLAN: The patient appears to have concerns of acute on chronic systolic mediated CHF. He has undergone evaluation and has subsequently been mechanically intubated/ventilated. He will need continued supportive care. (8) HLD (hyperlipidemia): QUALIFIERS: Hyperlipidemia type: unspecified Qualified Code(s): E78.5 - Hyperlipidemia, unspecified PLAN: The patient can continue medical therapy has tolerated. (9) HTN (hypertension): QUALIFIERS: Hypertension type: unspecified Qualified Code(s): I10 - Essential (primary) hypertension PLAN: The patient has a low blood pressure at this time secondary to concerns of his cardiopulmonary condition. He is requiring blood pressure support with IV vasopressors. This limits other medications that may benefit his cardiac status. (10) Respiratory failure requiring intubation: PLAN: The patient's respiratory state declined and he required mechanical intubation/ventilation. He will continue supportive care by pulmonology/critical care medicine. (11) Shock: PLAN: Based upon the patient's overall clinical course and findings he does appear to have evidence of underlying shock which may be multifactorial including an element of cardiogenic shock. Again based on the patient's comorbidities and his chronic debilitated state and his previous reports of being noncompliant, he does not appear to be an ideal candidate for further invasive cardiovascular evaluation/care at this time. Thus he is continuing medical management/support as best as possible. Addt'l Comments The patient's overall prognosis, based upon review of his cardiovascular noncardiovascular issues, unfortunately appears to be poor at this time. The patient's case has been previously discussed with Dr. Piper and Dr. Natarajan. This note was generated using a voice recognition system and there may be incorrect words, spelling or punctuation that were not noted when reviewing the office note prior to saving. HPI Consult Data Date of Consult: 04/26/21 HPI Narrative HPI Narrative: ADRIANNE ALVAREZ, is a 70-year-old white male who is referred for cardiovascular consultation based upon concerns of atrial fibrillation with RVR, ventricular tachycardia, superimposed upon a history of underlying CAD, CABG, ischemic mediated cardiomyopathy, chronic systolic CHF, hyperlipidemia, hypertension, report of a thoracic aortic aneurysm, and a chronic debilitated state. He was most recently evaluated in cardiovascular consultation on 03-24-[address] Polanco for concerns of atrial fibrillation superimposed upon his history of CAD, CABG, and a non-ST segment elevation [place]. At that time based upon the patient's chronic debilitated state and comorbidities he was not felt to be an ideal candidate for further evaluation in the cardiac catheterization laboratory. Thus he was treated medically. According to the [facility] staff he has returned to the hospital based upon his overall generalized decline/weakness/debility. The [facility] staff was called to evaluate the patient based upon evidence of recurrent atrial fibrillation with RVR and findings of nonsustained ventricular tachycardia as well as concerns of progressive shortness of breath/dyspnea. He was subsequently transferred to the ICU for further evaluation and care. The patient was reported as having difficulty with IV access. In the ICU a CVC was placed. He was placed on BiPAP therapy. However based upon his declining status he subsequently underwent mechanical intubation/ventilation. He was receiving additional medical therapy to assist with cardiac rate and rhythm with IV amiodarone. However, based upon a low blood pressure he also required additional IV vasopressor support. [facility] Medical History (Updated 04/26/21 @ 12:[address] Nash Mondragon MD) Atherosclerosis of coronary artery bypass graft without angina pectoris Atherosclerosis of coronary artery of habematolel heart without angina pectoris Gaines's esophagus Cardiomyopathy, ischemic CHF (congestive heart failure) COPD (chronic obstructive pulmonary disease) Diverticulosis Essential hypertension GERD (gastroesophageal reflux disease) Hearing loss, left Hearing loss, right History of DVT (deep vein thrombosis) History of pulmonary embolism HLD (hyperlipidemia) HTN (hypertension) Hyperlipidemia Insomnia Myocardial infarct Palpitations Perforation of sigmoid colon due to diverticulitis Severe low back pain Sleep apnea Smoker Vitamin D deficiency Home Medications hydrocodone-acetaminophen 1 tab PO 4X/DAY PRN 09/17/17 [History Last Taken 04/05/21] albuterol sulfate 1.25 mg INHALATION Q4H PRN 01/28/19 [History Last Taken Unknown] ipratropium 20 mcg-albuterol 100 mcg/actuation mist for inhalation 1 puff INHALATION DAILY 90 Days g 01/28/19 [History Last Taken Unknown] tizanidine 4 mg tablet 4 mg PO TID PRN 01/28/19 [History Last Taken Unknown] potassium chloride 10 meq PO DAILY 03/20/21 [History Last Taken 03/23/21] alprazolam 1 mg PO BID 04/06/21 [History Last Taken 04/06/21] atenolol 50 mg PO DAILY 04/06/21 [History Last Taken Unknown] amoxicillin-pot clavulanate 1 tab PO BID 7 Days #14 tab 04/09/21 [Rx Last Taken 04/06/21] omeprazole 20 mg PO DAILY 04/24/21 [History Last Taken Unknown] Allergy/AdvReac Type Severity Reaction Status Date / Time cetirizine Allergy Severe chest Verified 04/25/21 12:04 pain, irregular heart beat acyclovir [From Zovirax] Allergy Intermediate GI upset Verified 04/25/21 12:04 Cephalosporins Allergy Intermediate abdominal Verified 04/25/21 12:04 pain Lbmyjyh-Jhz-Xmk Reductase Allergy Intermediate increased Verified 04/25/21 12:04 Inhibitor weakness ciprofloxacin [From Cipro] AdvReac Diarrhea Verified 04/25/21 12:04 doxycycline AdvReac Diarrhea Verified 04/25/21 12:04 Family History Mother Breast cancer Father Colon cancer Cancer prostate Surgical History History of cataract removal with insertion of prosthetic lens History of coronary artery bypass graft Presence of stent in coronary artery Social History Smoking Status: Former smoker alcohol intake: current alcohol intake frequency: holidays/special occasions only substance use type: does not use caffeine: Yes Type: coffee Number of servings: 1 ROS Constitutional Constitutional: Reports as per HPI Eyes Eyes: Reports as per HPI ENT HEENT: Reports as per HPI Cardiovascular Cardiovascular: Reports as per HPI Respiratory/Chest Respiratory/Chest: Reports as per HPI Gastrointestinal Gastrointestinal: Reports as per HPI Genitourinary Genitourinary: Reports as per HPI Musculoskeletal Musculoskeletal: Reports as per HPI Integumentary Integumentary: Reports as per HPI Neurologic Neurologic: Reports as per HPI Physical Exam Narrative The patient is currently mechanically intubated/ventilated. HEENT normocephalic Neck no JVD Chest Chest: midline sternotomy incision Resp Auscultation: rhonchi throughout Cardio Rhythm: abnormal rhythm irregularly irregular Heart Sounds: S1 normal and S2 normal GI normal to inspection, nondistended, normoactive bowel sounds Extremity no pedal edema Skin General Skin Exam: ecchymosis Procedure Criteria Type of Procedure Procedure Type: Elective Elective Risks - COVID COVID Risk Discussion: The surgeon/proceduralist and patient have discussed in detail the risk of exposure to and/or potential harm posed by the COVID-19 virus with having a surgery/procedure at this time versus the risk of delaying the surgery/procedure. It is not possible to know either the risk of delaying the surgery or procedure or chance of getting an infection with perfect accuracy, but a joint decision was made between the patient and the surgeon/proceduralist to proceed at this time with the scheduled surgery/procedure as indicated on the consent form. Objective Data Vital Signs: Vital Signs Temp Pulse Resp BP Pulse Ox 99.0 F 94 36 H 70/48 L 86 04/26/21 07:41 04/26/21 08:22 04/26/21 08:22 04/26/21 09:17 04/26/21 07:41 Oxygen Flow Rate (L/min) 6 Oxygen Delivery Method Bi-pap Weight: 153 lb 3.54 oz Body Mass Index (BMI) 25.5 Intake & Output: Intake and Output for Last 24 Hours 04/24/21 04/25/21 04/26/21 23:59 23:59 23:59 Intake Total 500 / 500 23.42 / 23.42 Output Total 600 / 600 Balance 500 / -100 -576.58 / -576.58 Lab / Micro Data Result Diagrams: 04/26/21 07:30 04/26/21 07:30 Labs: Laboratory Results - last 24 hr 04/25/21 13:55: WBC 9.1, RBC 4.67, Hgb 12.8 L, Hct 40.6, MCV 86.9, MCH 27.4, MCHC 31.5 L D, RDW Std Deviation 52.8 H, RDW Coeff of Thierno 16.9 H, Plt Count 131 L, MPV 9.7, Immature Gran % (Auto) 0.900, Neut % (Auto) 77.3 H, Lymph % (Auto) 13.4 L, [place] % (Auto) 7.9, Eos % (Auto) 0.2, Baso % (Auto) 0.3, Absolute Neuts (auto) 7.0, Absolute Lymphs (auto) 1.22, Nucleated RBC % 0 04/25/21 13:55: Sodium 136, Potassium 4.6, Chloride 103, Carbon Dioxide 24.0, Anion Gap 9, BUN 15, Creatinine 1.05, Estim Creat Clear Calc 60.33, Est GFR (MDRD) Af Amer 89, Est GFR (MDRD) Non-Af 74, BUN/Creatinine Ratio 14.3, Glucose 101, Calcium 9.0 04/25/21 13:55: B-Natriuretic Peptide 2312.3 H 04/26/21 01:49: Troponin I High Sens 89.4 H* 04/26/21 05:04: Troponin I High Sens 83.6 H* 04/26/21 05:21: POC Glucose 160 H 04/26/21 07:30: WBC 15.7 H, RBC 4.80, Hgb 13.0, Hct 43.6, MCV 90.8, MCH 27.1, MCHC 29.8 L D, RDW Std Deviation 55.9 H, RDW Coeff of Thierno 17.2 H, Plt Count 152, MPV 9.8, Immature Gran % (Auto) 4.600 H, Neut % (Auto) 79.9 H, Lymph % (Auto) 8.5 L, [place] % (Auto) 6.4, Eos % (Auto) 0.3, Baso % (Auto) 0.3, Absolute Neuts (auto) 12.6 H, Absolute Lymphs (auto) 1.33, Nucleated RBC % 0.5 04/26/21 07:30: Sodium 138, Potassium 5.3 H, Chloride 102, Carbon Dioxide 15.0 L , Anion Gap 21 H, BUN 18, Creatinine 2.04 H, Estim Creat Clear Calc 31.05, Est GFR (MDRD) Af Amer 42 L, Est GFR (MDRD) Non-Af 34 L, BUN/Creatinine Ratio 8.8 L, Glucose 155 H, Calcium 9.0, Phosphorus 6.5 H, Magnesium 2.3 04/26/21 07:30: Total Creatine Kinase 188 ABG Data ABG results: ABG 04/26/21 09:57 Specimen Type ART Sample Site R Fem pH 7.27 L Bicarbonate Actual 13.6 L Total CO2 15 Base Excess -13 L O2 Saturation 100 H O2 % 100 ABG pCO2 29.6 L ABG pO2 612 H* Respiration Rate 12 O2 Delivery Device Adult Vent Vent Mode AC Tidal Volume 450 POC PEEP 8 Crit Call To/Read Back Yes Blood Gas Notified [facility] Labs/Tests 04/25/21 13:55: WBC 9.1, RBC 4.67, Hgb 12.8 L, Hct 40.6, MCV 86.9, MCH 27.4, MCHC 31.5 L D, Plt Count 131 L, MPV 9.7, Immature Gran % (Auto) 0.900, Neut % (Auto) 77.3 H, Lymph % (Auto) 13.4 L, [place] % (Auto) 7.9, Eos % (Auto) 0.2, Baso % (Auto) 0.3, Absolute Neuts (auto) 7.0, Nucleated RBC % 0 04/25/21 13:55: Sodium 136, Potassium 4.6, Chloride 103, Carbon Dioxide 24.0, Anion Gap 9, BUN 15, Creatinine 1.05, Est GFR (MDRD) Af Amer 89, Est GFR (MDRD) Non-Af 74, BUN/Creatinine Ratio 14.3, Glucose 101, Calcium 9.0 04/25/21 13:55: B-Natriuretic Peptide 2312.3 H 04/26/21 07:30: WBC 15.7 H, RBC 4.80, Hgb 13.0, Hct 43.6, MCV 90.8, MCH 27.1, MCHC 29.8 L D, Plt Count 152, MPV 9.8, Immature Gran % (Auto) 4.600 H, Neut % (Auto) 79.9 H, Lymph % (Auto) 8.5 L, [place] % (Auto) 6.4, Eos % (Auto) 0.3, Baso % (Auto) 0.3, Absolute Neuts (auto) 12.6 H, Nucleated RBC % 0.5 04/26/21 07:30: Sodium 138, Potassium 5.3 H, Chloride 102, Carbon Dioxide 15.0 L , Anion Gap 21 H, BUN 18, Creatinine 2.04 H, Est GFR (MDRD) Af Amer 42 L, Est GFR (MDRD) Non-Af 34 L, BUN/Creatinine Ratio 8.8 L, Glucose 155 H, Calcium 9.0, Phosphorus 6.5 H, Magnesium 2.3 04/26/21 09:57: pH 7.27 L, Bicarbonate Actual 13.6 L, Base Excess -13 L, O2 Saturation 100 H, ABG pCO2 29.6 L, ABG pO2 612 H* Rhythm: Atrial fibrillation; wide-complex tachycardia compatible with aberrancy and ventricular tachycardia EKG: Atrial fibrillation; nonspecific IVCD; ST and T wave abnormality-consider myocardial vjiijfwg-wmwjxaka-jupwplx-inferior ECHO: 03-24-2021 Interpretation Summary The estimated ejection fraction is 40-45 %. Unable to assess diastolic dysfunction. Hypokinesis of the inferior and posterior wall The left atrium is severely enlarged. Trivial mitral valve insufficiency. Trivial tricuspid valve insufficiency. Moderate diffuse aortic valve thickening. 04-26-2021 Interpretation Summary Normal LV size. The estimated ejection fraction is 30 %. Moderately severe segmental systolic dysfunction (see wall motion). Stage 3 diastolic dysfunction. [place] diffuse mitral valve thickening. The left atrium is moderately enlarged. Compared to previous study, the left ventricular systolic function has worsened.. Cardiac Cath: 12-10-2008: [facility]: Left main: Free of disease LAD: Free of disease LCx: 70% stenosis RCA: Greater than 50% stenosis PEARSON to the LAD: Patent SVG to a diagonal branch: Occluded Radial artery graft to the first OM: 90% stenosis SVG to the distal LCx: Occluded SVG to the RCA: Occluded LVEF: 35% CT Surgery: 08-01-2008: [place], [place] PEARSON to the LAD, SVG to the intermediate ramus, left radial artery to the OM, SVG to the LCx, SVG to the PDA Radiography Diagnostic Testing: Radiology Impression Chest X-Ray 04/25/21 19:00 IMPRESSION: Cardiomegaly with no evidence of overt vascular congestion with mild interstitial edema not excluded. Electronically Signed: Silvino Allen DO at 19:35 EDT , Service support , Chest X-Ray 04/26/21 06:10 IMPRESSION: Mild cardiomegaly. The tip of the right central venous catheter is at the junction of the superior vena cava and right atrium. Electronically Signed: Tony Jose MD at 8:06 EDT , Service support ,
[2021-04-26] MEDS: Pantoprazole Sodium 20 MG Tablet PO (12:39)
[2021-04-26] MEDS: Amiodarone 360 MG in Dextrose 5% Viaflo Bag 192.8 ML 16.7 MG CONT INF (12:39)
[2021-04-26 12:58] LABS: Anion Gap 23 (5-15); BUN 21 mg/dL (7-18); BUN/Creat Ratio 8.4 RATIO (10-20); Calcium,Total 8.9 mg/dL (8.5-10.1); Chloride 100 mmol/L (98-107); Creatinine, Serum 2.51 mg/dL (0.70-1.30); EST Glomerular Filtration Rate 27 mL/min (>60); Est Glom Filt Rate - Afr Amer 33 mL/min (>60); Estimated Creatinine Clearance 25.24 ml/min; Glucose 114 mg/dL (74-106); Lactic Acid 14.4 mmol/L (0.4-1.9); Potassium 6.4 mmol/L (3.5-5.1); Sodium Level 137 mmol/L (136-145)
[2021-04-26] MEDS: Norepinephrine 16 mg/250 mL 0.9% NS 14.1 MG CONT INF (13:30)
--- NOTE | 2021-04-26 13:30 | NURSING ---
Facilitated conversation between pt's daughter Ivette and Dr. Natarajan via telephone. Ivette will be calling back to inform us if code status will change but pt will remain a full code until then.
--- NOTE | 2021-04-26 13:49 | PN.HOSP_ITS ---
Subjective Subjective Patient seen and examined. He became acutely short of breath last night and BNP was found to be markedly elevated. He was started on IV lasix. He went into afib with RVR, and also became hypotensive. He was emergently transferred to the ICU. He was emergently intubated this morning o/a of worsening respiratory status. Patient seen and examined. Unable to do review of systems as patient was intubated and sedated. Objective Data Objective Data Vital Signs: Vital Signs Temp Pulse Resp BP Pulse Ox 98.4 F 72 42 H 87/73 L 99 04/26/21 11:35 04/26/21 12:20 04/26/21 12:20 04/26/21 12:30 04/26/21 12:20 Oxygen Flow Rate (L/min) 6 Oxygen Delivery Method Mechanical Ventilator Weight: 153 lb 3.54 oz Body Mass Index (BMI) 25.5 Intake & Output: Intake and Output for Last 24 Hours 04/24/21 04/25/21 04/26/21 23:59 23:59 23:59 Intake Total 500 / 500 483.91 / 483.91 Output Total 600 / 600 Balance 500 / -100 -116.09 / -116.09 Medical Nutrition Assessment Dietitian: Malnutrition Criteria Met Start: 04/26/21 11:35 Freq: Status: Active Protocol: Document 04/26/21 13:15 RYLYE (Rec: 04/26/21 13:15 RYLEY [id number]) Nutrition Malnutrition Evidence of Malnutrition Exists Yes Malnutrition (severe): Acute Illness/Injury Evidenced By Suboptimal Energy Intake ( Severe),Weight Loss (Severe), Physical Changes (Moderate) Clinical Problem Acute Disease or Injury Related Malnutrition Etiology related to debility and Failure to Thrive Signs/Symptoms as evidenced by NPO status, suspected po intake <75% x 1 month and wt loss of 15.2% since 03/20/21. Pt appears to have muscle wasting in arms and face. Status Active Problem Recommendation Dietitian Recommendations/Changes Will start Vital AF 1.2 at 15 ml/hr - increase by 15 ml/hr every 12 hours until goal rate of 60 ml/hr achieved. Flush w/ 100 ml free water ever 4 hours. Goal rate at 60 ml/hr to provide ~1728 svetlana/ 108 gm pro/ 1767 ml free water/day. Monitor for refeeding syndrome . Lab / Micro Data Result Diagrams: 04/26/21 07:30 04/26/21 12:10 Labs: Laboratory Results - last 24 hr 04/25/21 13:55: WBC 9.1, RBC 4.67, Hgb 12.8 L, Hct 40.6, MCV 86.9, MCH 27.4, MCHC 31.5 L D, RDW Std Deviation 52.8 H, RDW Coeff of Thierno 16.9 H, Plt Count 131 L, MPV 9.7, Immature Gran % (Auto) 0.900, Neut % (Auto) 77.3 H, Lymph % (Auto) 13.4 L, Zavala % (Auto) 7.9, Eos % (Auto) 0.2, Baso % (Auto) 0.3, Absolute Neuts (auto) 7.0, Absolute Lymphs (auto) 1.22, Nucleated RBC % 0 04/25/21 13:55: Sodium 136, Potassium 4.6, Chloride 103, Carbon Dioxide 24.0, Anion Gap 9, BUN 15, Creatinine 1.05, Estim Creat Clear Calc 60.33, Est GFR (MDRD) Af Amer 89, Est GFR (MDRD) Non-Af 74, BUN/Creatinine Ratio 14.3, Glucose 101, Calcium 9.0 04/25/21 13:55: B-Natriuretic Peptide 2312.3 H 04/26/21 01:49: Troponin I High Sens 89.4 H* 04/26/21 05:04: Troponin I High Sens 83.6 H* 04/26/21 05:21: POC Glucose 160 H 04/26/21 07:30: WBC 15.7 H, RBC 4.80, Hgb 13.0, Hct 43.6, MCV 90.8, MCH 27.1, MCHC 29.8 L D, RDW Std Deviation 55.9 H, RDW Coeff of Thierno 17.2 H, Plt Count 152, MPV 9.8, Immature Gran % (Auto) 4.600 H, Neut % (Auto) 79.9 H, Lymph % (Auto) 8.5 L, Zavala % (Auto) 6.4, Eos % (Auto) 0.3, Baso % (Auto) 0.3, Absolute Neuts (auto) 12.6 H, Absolute Lymphs (auto) 1.33, Nucleated RBC % 0.5 04/26/21 07:30: Sodium 138, Potassium 5.3 H, Chloride 102, Carbon Dioxide 15.0 L , Anion Gap 21 H, BUN 18, Creatinine 2.04 H, Estim Creat Clear Calc 31.05, Est GFR (MDRD) Af Amer 42 L, Est GFR (MDRD) Non-Af 34 L, BUN/Creatinine Ratio 8.8 L, Glucose 155 H, Calcium 9.0, Phosphorus 6.5 H, Magnesium 2.3 04/26/21 07:30: Total Creatine Kinase 188 04/26/21 12:10: Sodium 137, Potassium 6.4 H*, Chloride 100, Carbon Dioxide 14.0 L, Anion Gap 23 H, BUN 21 H, Creatinine 2.51 H, Estim Creat Clear Calc 25.24, Est GFR (MDRD) Af Amer 33 L, Est GFR (MDRD) Non-Af 27 L, BUN/Creatinine Ratio 8.4 L, Glucose 114 H, Calcium 8.9 04/26/21 12:10: Lactic Acid 14.4 H* ABG Data ABG results: ABG 04/26/21 09:57 Specimen Type ART Sample Site R Fem pH 7.27 L Bicarbonate Actual 13.6 L Total CO2 15 Base Excess -13 L O2 Saturation 100 H O2 % 100 ABG pCO2 29.6 L ABG pO2 612 H* Respiration Rate 12 O2 Delivery Device Adult Vent Vent Mode AC Tidal Volume 450 POC PEEP 8 Crit Call To/Read Back Yes Blood Gas Notified Whom ayah Radiography Diagnostic Testing: Radiology Impression Chest X-Ray 04/25/21 19:00 IMPRESSION: Cardiomegaly with no evidence of overt vascular congestion with mild interstitial edema not excluded. Electronically Signed: Silvino Allen DO at 19:35 EDT , Service support , Chest X-Ray 04/26/21 06:10 IMPRESSION: Mild cardiomegaly. The tip of the right central venous catheter is at the junction of the superior vena cava and right atrium. Electronically Signed: Tony Jose MD at 8:06 EDT , Service support , Echocardiogram 04/26/21 09:35 Interpretation Summary Normal LV size. The estimated ejection fraction is 30 %. Moderately severe segmental systolic dysfunction (see wall motion). Stage 3 diastolic dysfunction. Bileaflet diffuse mitral valve thickening. The left atrium is moderately enlarged. Compared to previous study, the left ventricular systolic function has worsened.. Ordering Physician: Cliff Natarajan Referring Physician: Woo Pineda Performed By: Adiel Paz RCS Physical Exam Const Constitutional Narrative: intubated, sedated, RASS score is +1 HEENT head/scalp atraumatic, moist oral mucous membranes and oropharynx normal Head and Scalp: normocephalic Eyes PERRL, EOMs intact bilaterally and conjunctivae normal Neck no lymphadenopathy Resp Resp Narrative: intubated, sedated. Diminished breath sounds bibasally, no wheezes or crackles. Cardio regular rate, S1 normal heart sound, S2 normal heart sound and no murmurs Cardio Narrative: afib, rate controlled. GI normal to inspection, nondistended, normoactive bowel sounds, soft to palpation, non-tender and non-distended Extremity normal to inspection, full ROM and no clubbing, cyanosis or edema Peripheral Pulses: Yes pulses 2+ throughout Skin no rashes or lesions noted Neuro Neuro Narrative: intubated, sedated. RASS score is +2. Assessment & Plan Assessment/Plan (1) CHF (congestive heart failure): QUALIFIERS: Heart failure type: systolic Heart failure chronicity: acute on chronic Qualified Code(s): I50.23 - Acute on chronic systolic (congestive) heart failure (2) Acute kidney injury: (3) Elevated troponin: (4) NSTEMI, initial episode of care: (5) Shock: (6) Nonsustained ventricular tachycardia: PLAN: #Acute combined heart failure * BNP was elevated, and patient was started on IV lasix 40mg bid * currently on IV lasix * #Afib with RVR and nonsustained ventricular tachycardia * patient had emergent DC cardioversion done this morning, as he remained hypotensive despite being on levophed. * cardiology on board. * on amiodarone. * on eliquis. * #Shock * etiology unclear. * wbc is 15.7. patient has a rent history of diverticular abscess * currently on IV levophed. * critical care on board. * titrate levophed to maintain MAP >65 * blood culture and urine culture ordered #Acute hypoxic respiratory failure due to heart failure * patient emergently intubated and sedated this morning * on IV lasix. * monitor intake and output. * 2D echo: ED 30% with moderately severe segmental LV systolic function and stage 3 diastolic dysfunction with moderate to severe global hypokinesis of the left ventricle * #Hypertension * BP meds on hold o/a of hypotension. * trend BP * #Hyperkalemia: * K is 6.4. Will give kayexalate via the NG tube. * trend potassium * #LARY * Cr is 2.51, baseline ~ 1. * on levophed; cannot be given fluids o/a of being in shock * #Anion gap metabolic acidosis * bicarb is 14. * anion gap is 23. * likely due to LARY. Will trend * #CAD s/p stents: GI prophylaxis: PPI DVT prophylaxis: on eliquis Charges/Coding Visit Charges Inpatient E&M: 09180 [facility] L3
[2021-04-26 13:58] LABS: Troponin-I HS 175.8 pg/mL (3.0-78.5)
[2021-04-26 16:22] LABS: Reflex Lactate? Y
[2021-04-26] MEDS: Ipratropium/Albuterol Sulfate 3 ML AMPUL.NEB INHALATION (19:16)
[2021-04-26] MEDS: Vital AF 1.2 Cal Liquid 1,000 ML 60 ML GT (22:49)
[2021-04-26 23:23] LABS: Lactic Acid 10.8 mmol/L (0.4-1.9)
[2021-04-27] VITALS (9 sets, daily range): BP systolic 30–111; BP diastolic 13–87; PULSE 91–93; RESP 12–27; TEMP 37.2; O2SAT 35–94
--- NOTE | 2021-04-27 00:30 | EKG12_ITS ---
Test Reason : RHYTHM CHANGE Blood Pressure : / mmHG Vent. Rate : 092 BPM Atrial Rate : 063 BPM P-R Int : 000 ms QRS Dur : 162 ms QT Int : 528 ms P-R-T Axes : 000 169 023 degrees QTc Int : 652 ms Wide QRS rhythm : Consider AIVR Abnormal ECG Confirmed by CATRER DURAND, ANDRESSA ([id number]), research editor YARON BOYCE ([id number]) on 04/28/2021 11:09:29 AM Referred By: BEATRIZ Confirmed By:ANDRESSA MACHADO MD
[2021-04-27 00:51] LABS: Absolute Lymphocyte Count 1.21 X10^3/uL (0.83-4.51); Absolute Neutrophil Count 12.8 X10^3/uL (2.0-7.7); Basophil# 0.05 X10^3/uL; Basophil% 0.3 % (0-1); Eosinophil# 0.32 X10^3/uL; Hematocrit 41.6 % (40-54); Lymphocyte # 1.21 X10^3/ul (0.83-4.51); Lymphocyte % 7.7 % (19-41); Mean Corp Hgb Conc 28.8 g/dL (32-36); Mean Corpuscular Hgb 27.1 pg (27.0-32.0); Mean Corpuscular Volume 93.9 fL (80-94); Mean Platelet Vol. 10.9 fl (6.2-12.0); Monocyte# 0.72 X10^3/uL; Monocyte% 4.6 % (0-10); NRBC Flagged by Analyzer 2.8 % (0-5); Neutrophil # 12.84 X10^3/uL (2.7-7.7); Platelet Count 148 K/mm3 (150-450); RBC Distribution Width CV 17.3 % (11.6-14.6); RBC Distribution Width SD 58.9 fl (35.1-43.9); Red Blood Count 4.43 M/mm3 (4.6-6.2); White Blood Count 15.7 K/mm3 (4.4-11.0)
[2021-04-27] MEDS: Amiodarone 360 MG in Dextrose 5% Viaflo Bag 192.8 ML 16.7 MG CONT INF (01:02)
[2021-04-27] MEDS: Norepinephrine 16 mg/250 mL 0.9% NS 28.1 MG CONT INF (01:10)
[2021-04-27 01:38] LABS: Phosphorus 8.8 mg/dL (2.5-4.9)
[2021-04-27 01:40] LABS: ALB/GLOB Ratio 0.6 RATIO (0.9-2.4); Alanine Aminotransfer ALT/SGPT 4557 U/L (16-61); Albumin, Serum 2.2 g/dL (3.2-5.0); Alkaline Phosphatase 176 U/L (45-117); Anion Gap 23 (5-15); BUN 32 mg/dL (7-18); BUN/Creat Ratio 9.2 RATIO (10-20); Chloride 106 mmol/L (98-107); Creatinine, Serum 3.46 mg/dL (0.70-1.30); EST Glomerular Filtration Rate 19 mL/min (>60); Est Glom Filt Rate - Afr Amer 23 mL/min (>60); Estimated Creatinine Clearance 18.31 ml/min; Globulin 3.7 g/dL (2.2-4.2); Glucose 118 mg/dL (74-106); Magnesium 2.9 mg/dL (1.6-2.6); Potassium 6.2 mmol/L (3.5-5.1); Protein, Total 5.9 g/dL (6.4-8.2); Sodium Level 140 mmol/L (136-145)
--- NOTE | 2021-04-27 01:40 | NURSING ---
Patient had a condition change daughter was called multiple times to come in to the hospital and she did not answer her phone. girlfriend Lavern was called and she is on her way to the hospital at this time.
--- NOTE | 2021-04-27 02:17 | EXP.PCM_ITS ---
Preliminary Cause of Preliminary Cause of Preliminary Cause of : Acute on chronic systolic and diastolic heart failure Date of Admission: 04/25/21 Principle Diagnosis Problem List: Active and Suspected Problems (Updated 04/26/21 @ 12:[address] Nash Mondragon MD) HLD (hyperlipidemia) (Acute) CHF (congestive heart failure) (Acute) Cardiomyopathy, ischemic (Acute) Nonsustained ventricular tachycardia (Acute) Acute kidney injury (Acute) Respiratory failure requiring intubation (Acute) Shock (Acute) Generalized weakness (Acute) Atrial fibrillation with rapid ventricular response (Acute) Elevated troponin (Acute) NSTEMI, initial episode of care (Acute) Hospital Course hpi: Patient was 70-year-old male presents emergency department with weakness and debility. Reportedly patient was a poor informant and appears confused on presentation. Hospital course: While at the hospital patient went into A. fib with RVR. Se rial troponin was ordered. Patient was transferred to progressive care unit. He received IV metoprolol and Cardizem drip. Also amiodarone was started as patient went into nonsustained V. tach. He was treated with Lasix IV for pulmonary edema. Patient was transferred to intensive care unit. Patient was intubated and placed on mechanical ventilation. Echocardiogram done showed an ejection fraction of 30% and with stage III diastolic dysfunction. Patient was placed on multiple pressors because of hypotension. Also he was treated with empiric Zosyn because he recently had diverticula abscess and had significant leukocytosis on presentation. Because of hypotension in the setting of plasma A. fib and nonsustained V. tach patient was cardioverted. Because of severe hypokalemia he received Kayexalate. Patient was seen by hospitalist, grain combine driver and instructor kindergarten. Date of 04/27/2021. Time of : 01: 55. was confirmed by 2 registered nurses. Immediate cause of : Acute on chronic systolic and diastolic heart failure Other Diagnosis contributing to his immediate cause of : Paroxysmal A. fib; septic shock; acute kidney injury Other significant conditions contribute to but not resulting in the underlying cause of : Hypertension; COPD Did tobacco contribute to : Yes. Patient is a former smoker. Visit Charges Inpatient E&M: 17727 Disch Hosp
--- NOTE | 2021-04-27 04:19 | NURSING ---
At 0152 spoke with patient's daughter, Ivette, and gave update to patient's status. Daughter stated that she wanted to remove care at this time. Daughter verified her wishes with this RN and Javier Chavez RN.
--- NOTE | 2021-04-27 04:38 | NURSING ---
Time of at 0155. Verified absence of pulse with Ian Preston RN.
== END 2021-04-27 01:55 | DRG 291 ==
LOC: ED 14:26 → MS3 15:33 → PCU 04-26 03:28 → ICU 04-26 06:11
PROVIDERS: Hospitalist; Internal Medicine; Internal Medicine Critical Care Medicine; Admitting Provider Student in an Organized Health Care Education/Training Program; Emergency Provider Emergency Medicine; PCP Family Medicine; Visit Provider Student in an Organized Health Care Education/Training Program
DX: I11.0 Hypertensive heart disease with heart failure (principal); E43 Unspecified severe protein-calorie malnutrition; J96.01 Acute respiratory failure with hypoxia; G93.41 Metabolic encephalopathy; A41.9 Sepsis, unspecified organism; R65.21 Severe sepsis with septic shock; N17.9 Acute kidney failure, unspecified; I47.2 Ventricular tachycardia; I25.810 Atherosclerosis of coronary artery bypass graft(s) without angina pectoris; K57.20 Diverticulitis of large intestine with perforation and abscess without bleeding; I50.43 Acute on chronic combined systolic (congestive) and diastolic (congestive) heart failure; D64.9 Anemia, unspecified; I25.10 Atherosclerotic heart disease of native coronary artery without angina pectoris; I48.0 Paroxysmal atrial fibrillation; J44.9 Chronic obstructive pulmonary disease, unspecified; E78.5 Hyperlipidemia, unspecified; I25.5 Ischemic cardiomyopathy; I71.2 Thoracic aortic aneurysm, without rupture; I45.4 Nonspecific intraventricular block; I95.81 Postprocedural hypotension; F41.9 Anxiety disorder, unspecified; H91.93 Unspecified hearing loss, bilateral; K21.9 Gastro-esophageal reflux disease without esophagitis; R53.1 Weakness; R62.7 Adult failure to thrive; R53.81 Other malaise; Z91.19 Patient's noncompliance with other medical treatment and regimen; Z66 Do not resuscitate; Z68.25 Body mass index [BMI] 25.0-25.9, adult; Z95.1 Presence of aortocoronary bypass graft; Z95.5 Presence of coronary angioplasty implant and graft; Z79.01 Long term (current) use of anticoagulants; Z79.899 Other long term (current) drug therapy; Z51.89 Encounter for other specified aftercare; Z87.891 Personal history of nicotine dependence; Z86.711 Personal history of pulmonary embolism; Z86.718 Personal history of other venous thrombosis and embolism
CPT/HCPCS: 31500; 31720; 36415; 36600; 70450; 71045; 80048; 80053; 82550; 82803; 82962; 83605; 83735; 83880; 84100; 84484; 85025; 87040; 87070; 87077; 87186; 87205; 93005; 93306; 94002; 94640; 97802; 99251; 99285; 99406; J7040; J7050; Q9957; A4216; C1751; G0463; J1940; J2405; J3010; J3490